=== PATIENT | male | born 1950 | race Caucasian/White ===

== ENCOUNTER 2017-04-09 15:33 | Observation (INO) | payer OTHER ==
[2017-04-09 15:41] VITALS: BMI 30.7
--- NOTE | 2017-04-09 16:13 | PDOC ---
History of Present Illness - History of Present Illness Initial Comments: 04/09/17 16:27 The patient is a 67 year old male, with a significant past medical history of hypertension (taking metoprolol), cardiac disease (taking amiodarone), HIV and WPW, who presents to the emergency department with fatigue and chest tightness x2 day with new onset of headache and hand numbness today. The patient states he has been sleeping excessively which is unlike him. He reports a chest tightness which radiates to his left shoulder and inferior to his left axilla. He also reports numbness to his fingertips, worse on the right than the left. He states his headache is localized to the right side and constant, but mild. He also states he feels lightheaded at this time. He reports having an echocardiogram over 5 years ago which was negative. He denies shortness of breath and dizziness. He denies fever, chills, nausea, vomit, diarrhea and constipation. He denies dysuria, frequency, urgency and hematuria. Allergies: NKDA PCP - Dr. Mae <Sherie Rondon - Last Filed: 04/09/17 16:27> <Carmelina Cruz - Last Filed: 04/09/17 18:22> - General Chief Complaint: Chest Pain Stated Complaint: CHEST PAIN, LT SIDE NUMBNESS Time Seen by Provider: 04/09/17 16:10 Past History <Sherie Rondon - Last Filed: 04/09/17 16:27> - Past Medical History Anemia: No Asthma: No Cancer: No Cardiac Disorders: Yes (Parkinson-White Syndrome) CVA: No COPD: No CHF: No Dementia: No Diabetes: No GI Disorders: No Disorders: No HTN: No Hypercholesterolemia: Yes HIV: Yes (on meds) Liver Disease: No Seizures: No Thyroid Disease: No - Surgical History Abdominal Surgery: No Appendectomy: No Cardiac Surgery: No Cholecystectomy: No Lung Surgery: No Neurologic Surgery: No Orthopedic Surgery: Yes (lef rotator cuff repari 2013) - Immunization History Immunization Up to Date: No - Psycho/Social/Smoking Cessation Hx Anxiety: No Suicidal Ideation: No Smoking Status: No Smoking History: Never smoked Have you smoked in the past 12 months: No Number of Cigarettes Smoked Daily: 0 Cigars Per Day: 0 Hx Alcohol Use: No Drug/Substance Use Hx: No Substance Use Type: None Hx Substance Use Treatment: No <Carmelina Cruz - Last Filed: 04/09/17 18:22> - Past Medical History Allergies/Adverse Reactions: Allergies Allergy/AdvReac Type Severity Reaction Status Date / Time No Known Allergies Allergy Verified 04/09/17 15:41 Home Medications: Ambulatory Orders Oxycodone HCl/Acetaminophen [Percocet 5-325 mg Tablet] 1 tab PO Q6H PRN #28 tablet MDD 4 12/23/16 Aspirin [Ecotrin] 81 mg PO DAILY #30 tablet. 02/10/17 Docusate Sodium 100 mg PO DAILY #30 capsule 02/10/17 Efavirenz/Emtricitab/Tenofovir [Atripla Tablet -] 1 tab PO DAILY #30 tab Fenofibrate Nanocrystallized [Fenofibrate] 145 mg PO DAILY #30 tablet 02/10/17 Mv-Mn/Fe Picolin/FA/Marek/D3/Aa [[place] Immune Support Tablet] 4 each PO BID #240 tablet 02/10/17 Vit D3/Folic Acid/B2/B6/B12 [Folgard Tablet] 1 each PO DAILY #30 tablet Amiodarone HCl 100 mg PO DAILY 04/09/17 Metoprolol Succinate [Toprol Xl] 50 mg PO DAILY 04/09/17 Review of Systems - Review of Systems Able to Perform ROS?: Yes Comments:: 04/09/17 16:27 GENERAL/CONSTITUTIONAL: (+) fatigue. No fever or chills. No weakness. HEAD, EYES, EARS, NOSE AND THROAT: No change in vision. No ear pain or discharge. No sore throat. CARDIOVASCULAR:(+)chest tightness. No shortness of breath. RESPIRATORY: No cough, wheezing, or hemoptysis. GASTROINTESTINAL: No nausea, vomiting, diarrhea or constipation. GENITOURINARY: No dysuria, frequency, or change in urination. MUSCULOSKELETAL: (+) left shoulder pain with numbness to hands bilaterally. No joint or muscle swelling or pain. No neck or back pain. SKIN: No rash NEUROLOGIC: (+) headache, No vertigo, loss of consciousness, or change in strength/sensation. ENDOCRINE: No increased thirst. No abnormal weight change. HEMATOLOGIC/LYMPHATIC: No anemia, easy bleeding, or history of blood clots. ALLERGIC/IMMUNOLOGIC: No hives or skin allergy. <Sherie Rondon - Last Filed: 04/09/17 16:27> *Physical Exam - Vital Signs Last Vital Signs Temp Pulse Resp BP Pulse Ox 98.0 F 83 20 137/96 98 04/09/17 15:36 04/09/17 15:36 04/09/17 15:36 04/09/17 15:36 04/09/17 15:36 <Sherie Rondon - Last Filed: 04/09/17 16:27> - Vital Signs Last Vital Signs Temp Pulse Resp BP Pulse Ox 98.0 F 83 20 137/96 98 04/09/17 15:36 04/09/17 15:36 04/09/17 15:36 04/09/17 15:36 04/09/17 15:36 <Carmelina Cruz - Last Filed: 04/09/17 18:22> Heart Score/ECG Review - History History: Moderately suspicious - Electrocardiogram EKG: Normal - Age Age: >/= 65 - Risk Factors Risk Factors Heart Score: Yes Hx Hypercholesterolemia Based on the list above the patient has:: 1-2 risk factors - Troponin Troponin: </= normal limit - Score Heart Score - Total: 4 - ECG Impressions Comment:: EKG read 15:40- Sinus rhythm 74 bpm, no acute ST/T changes. Occasional PAC. <Carmelina Cruz - Last Filed: 04/09/17 18:22> ED Treatment Course - LABORATORY CBC & Chemistry Diagram: 04/09/17 16:21 04/09/17 16:21 <Carmelina Cruz - Last Filed: 04/09/17 18:22> Medical Decision Making - Medical Decision Making Pt with no prior history of ACS (only WPW), but has multiple family members with strokes. The history is concerning for ACS- recent dec exercise tolerance, extreme fatigue, and now with L chest pain- substernal and axillary radiating to the neck and both arms. Currently pain free. Labs, EKG, CXR, and admit for workup with consultation with Dr. Mae. <Carmelina Cruz - Last Filed: 04/09/17 18:22> *DC/Admit/Observation/Transfer - Attestations Scribe Attestion: 04/09/17 16:30 Documentation prepared by Shreie Rondon, acting as medical advisor for Carmelina Cruz MD, <Sherie Rondon - Last Filed: 04/09/17 16:27> - Discharge Dispostion Admit: Yes <Carmelina Cruz - Last Filed: 04/09/17 18:22> Diagnosis at time of Disposition: Chest pain Qualifiers: Chest pain type: unspecified Qualified Code(s): R07.9 - Chest pain, unspecified - Discharge Dispostion Condition at time of disposition: Stable
[2017-04-09 16:40] LABS: BASOPHIL 0.4 % (0-2.0); MCH 30.5 pg (25.7-33.7); MCHC 33.8 g/dl (32.0-35.9); MEAN CELL VOLUME 90.3 fl (80-96); MEAN PLT VOLUME 8.3 fl (7.5-11.1); NEUTROPHILS 53.7 % (42.8-82.8); PLATELET COUNT 243 K/MM3 (134-434); RDW 12.9 % (11.9-15.9); WHITE BLOOD COUNT 4.9 K/mm3 (4.0-10.0)
[2017-04-09 16:58] LABS: INR 1.05 (0.82-1.09); PROTHROMBIN TIME (PATIENT) 11.6 SEC (9.98-11.88)
[2017-04-09 17:07] LABS: ALBUMIN 3.7 g/dl (3.4-5.0); ANION GAP 10 (8-16); BILIRUBIN,TOTAL 0.2 mg/dL (0.2-1.0); CALCIUM 8.8 mg/dL (8.5-10.1); CO2 26 mmol/L (21-32); COCKROFT - GAULT 85.4; CREATININE 1.2 mg/dL (0.7-1.3); GLUCOSE,RANDOM 156 mg/dL (74-106); SGOT/AST 18 U/L (15-37); SGPT/ALT 37 U/L (12-78); TOT PROT 7.2 g/dl (6.4-8.2)
[2017-04-09 17:10] LABS: ALK PHOS 64 U/L (45-117); TROPONIN I < 0.02 ng/ml (0.00-0.05)
[2017-04-09] MEDS ORDERED: ACETAMINOPHEN 325 MG TABLET (FP) PO ONE (17:22)
[2017-04-09] MEDS ORDERED: ACETAMINOPHEN 325 MG TABLET (FP) ONE (17:29)
[2017-04-09] MEDS ORDERED: ACETAMINOPHEN 325 MG TABLET (FP) PO PRN (17:47)
--- NOTE | 2017-04-09 17:47 | HP ---
CHIEF COMPLAINT: chest pain PCP: Dr. Mae HISTORY OF PRESENT ILLNESS: The patient is a 67 year old male, with a significant past medical history of hypertension (taking metoprolol), cardiac disease (taking amiodarone), HIV and WPW, who presents to the emergency department with fatigue and chest tightness x2 day with new onset of headache and hand numbness today. The patient states he has been sleeping excessively which is unlike him. He reports a chest tightness which radiates to his left shoulder and inferior to his left axilla. He also reports numbness to his fingertips, worse on the right than the left. He states his headache is localized to the right side and constant, but mild. He also states he feels lightheaded at this time. He reports having an echocardiogram over 5 years ago which was negative. He denies shortness of breath and dizziness. He denies fever, chills, nausea, vomit, diarrhea and constipation. He denies dysuria, frequency, urgency and hematuria. ER course was notable for: (1) chest pain with first trop neg (2) (3) Recent Travel: denies Family History: Allergies No Known Allergies Allergy (Verified 04/09/17 15:41) HOME MEDICATIONS: Home Medications Medication Instructions Recorded Oxycodone HCl/Acetaminophen 1 tab PO Q6H PRN #28 tablet MDD 4 12/23/16 [Percocet 5-325 mg Tablet] Aspirin [Ecotrin] 81 mg PO DAILY #30 tablet. 02/10/17 Docusate Sodium 100 mg PO DAILY #30 capsule 02/10/17 Efavirenz/Emtricitab/Tenofovir 1 tab PO DAILY #30 tab 02/10/17 [Atripla Tablet -] Fenofibrate Nanocrystallized 145 mg PO DAILY #30 tablet 02/10/17 [Fenofibrate] Mv-Mn/Fe Picolin/FA/Marek/D3/Aa 4 each PO BID #240 tablet 02/10/17 [K-[place] Immune Support Tablet] Vit D3/Folic Acid/B2/B6/B12 1 each PO DAILY #30 tablet 02/10/17 [Folgard Tablet] Amiodarone HCl 100 mg PO DAILY 04/09/17 Metoprolol Succinate [Toprol Xl] 50 mg PO DAILY 04/09/17 REVIEW OF SYSTEMS CONSTITUTIONAL: Absent: fever, chills, diaphoresis, generalized weakness, malaise, loss of appetite, weight change HEENT: Absent: rhinorrhea, nasal congestion, throat pain, throat swelling, difficulty swallowing, mouth swelling, ear pain, eye pain, visual changes CARDIOVASCULAR: Absent: (+)chest pain, syncope, palpitations, irregular heart rate, lightheadedness, peripheral edema RESPIRATORY: Absent: cough, shortness of breath, dyspnea with exertion, orthopnea, wheezing, stridor, hemoptysis GASTROINTESTINAL: Absent: abdominal pain, abdominal distension, nausea, vomiting, diarrhea, constipation, melena, hematochezia GENITOURINARY: Absent: dysuria, frequency, urgency, hesitancy, hematuria, flank pain, genital pain MUSCULOSKELETAL: Absent: myalgia, arthralgia, joint swelling, back pain, neck pain SKIN: Absent: rash, itching, pallor HEMATOLOGIC/IMMUNOLOGIC: Absent: easy bleeding, easy bruising, lymphadenopathy, frequent infections ENDOCRINE: Absent: unexplained weight gain, unexplained weight loss, heat intolerance, cold intolerance NEUROLOGIC: Absent: headache, focal weakness or paresthesias, dizziness, unsteady gait, seizure, mental status changes, bladder or bowel incontinence PSYCHIATRIC: Absent: anxiety, depression, suicidal or homicidal ideation, hallucinations. PHYSICAL EXAMINATION Vital Signs - 24 hr 04/09/17 15:36 Temperature 98.0 F Pulse Rate 83 Respiratory 20 Rate Blood Pressure 137/96 O2 Sat by Pulse 98 Oximetry (%) GENERAL: Awake, alert, and fully oriented, in no acute distress. HEAD: Normal with no signs of trauma. EYES: Pupils equal, round and reactive to light, extraocular movements intact, sclera anicteric, conjunctiva clear. No lid lag. EARS, NOSE, THROAT: Ears normal, nares patent, oropharynx clear without exudates. Moist mucous membranes. NECK: Normal range of motion, supple without lymphadenopathy, JVD, or masses. LUNGS: Breath sounds equal, clear to auscultation bilaterally. No wheezes, and no crackles. No accessory muscle use. HEART: Regular rate and rhythm, normal S1 and S2 without murmur, rub or gallop. ABDOMEN: Soft, nontender, not distended, normoactive bowel sounds, no guarding, no rebound, no masses. No hepatomegaly or splenomegaly. MUSCULOSKELETAL: Normal range of motion at all joints. No bony deformities or tenderness. No CVA tenderness. UPPER EXTREMITIES: 2+ pulses, warm, well-perfused. No cyanosis. No clubbing. No peripheral edema. LOWER EXTREMITIES: 2+ pulses, warm, well-perfused. No calf tenderness. No peripheral edema. NEUROLOGICAL: Cranial nerves II-XII intact. Normal speech. Normal gait. PSYCHIATRIC: Cooperative. Good eye contact. Appropriate mood and affect. SKIN: Warm, dry, normal turgor, no rashes or lesions noted, normal capillary refill. Laboratory Results - last 24 hr 04/09/17 04/09/17 04/09/17 16:21 16:21 16:21 WBC 4.9 RBC 4.54 Hgb 13.8 Hct 40.9 MCV 90.3 MCHC 33.8 RDW 12.9 Plt Count 243 MPV 8.3 Neutrophils % 53.7 Lymphocytes % 34.6 Monocytes % 7.3 Eosinophils % 4.0 Basophils % 0.4 INR 1.05 Sodium 142 Potassium 4.2 Chloride 106 Carbon Dioxide 26 Anion Gap 10 BUN 17 Creatinine 1.2 Creat Clearance w eGFR > 60 Random Glucose 156 H D Calcium 8.8 Total Bilirubin 0.2 D AST 18 D ALT 37 Alkaline Phosphatase 64 Creatine Kinase 83 Troponin I < 0.02 B-Natriuretic Peptide 72.83 Total Protein 7.2 Albumin 3.7 ASSESSMENT/PLAN: This 67 yr old male with c/o chest pain r/o mi with cardiac enzymes 1. chest pain with hx of WPW -admit observation tele -trop series. -received asa 325. -consult cardiology Tu placed in ER -continue metoprolol and antiarrythmic 2. HIV status -continue HARRT meds 3. HTN -cont home meds. 4. admission observation tele. Visit type - Emergency Visit Emergency Visit: Yes ED Registration Date: 04/09/17 Care time: The patient presented to the Emergency Department on the above date and was hospitalized for further evaluation of their emergent condition. - New Patient This patient is new to me today: Yes Date on this admission: 04/09/17 - Critical Care Critical Care patient: No
[2017-04-09] MEDS ORDERED: ASPIRIN 81 MG CHEWABLE TABLETS PO ONE (17:57)
[2017-04-09] MEDS ORDERED: ASPIRIN 325 MG TABLET ONE (18:15)
[2017-04-09 19:14] LABS: URINE APPEARANCE CLEAR; URINE BILIRUBIN NEGATIVE (NEGATIVE); URINE BLOOD NEGATIVE (NEGATIVE); URINE COLOR LTYELLOW; URINE GLUCOSE (UA) 3+ (NEGATIVE); URINE KETONE NEGATIVE (NEGATIVE); URINE LEUK ESTERASE NEGATIVE (NEGATIVE); URINE NITRITE NEGATIVE (NEGATIVE); URINE PROTEIN NEGATIVE (NEGATIVE); URINE UROBILINOGEN NEGATIVE E.U./dl (0.2-1.0)
[2017-04-09] MEDS ORDERED: [UNRECOGNIZED DRUG - OTHER] PO SCH (22:00)
[2017-04-09] MEDS ORDERED: CAL PO SCH (22:00)
[2017-04-09] MEDS ORDERED: D3 PO SCH (22:00)
[2017-04-09] MEDS ORDERED: MV MN PO SCH (22:00)
[2017-04-10 06:35] LABS: BASOPHIL 1.5 % (0-2.0); MCH 31.2 pg (25.7-33.7); MCHC 34.3 g/dl (32.0-35.9); MEAN CELL VOLUME 90.8 fl (80-96); MEAN PLT VOLUME 8.3 fl (7.5-11.1); NEUTROPHILS 42.3 % (42.8-82.8); PLATELET COUNT 233 K/MM3 (134-434); WHITE BLOOD COUNT 5.1 K/mm3 (4.0-10.0)
[2017-04-10 06:46] LABS: INR 1.13 (0.82-1.09); PROTHROMBIN TIME (PATIENT) 12.5 SEC (9.98-11.88)
[2017-04-10 06:55] LABS: ALBUMIN 3.4 g/dl (3.4-5.0); ANION GAP 10 (8-16); BILIRUBIN,TOTAL 0.4 mg/dL (0.2-1.0); CALCIUM 8.5 mg/dL (8.5-10.1); CO2 24 mmol/L (21-32); COCKROFT - GAULT 113.9; CREATININE 0.9 mg/dL (0.7-1.3); GLUCOSE,RANDOM 115 mg/dL (74-106); MAGNESIUM 2.1 mg/dL (1.8-2.4); PHOSPHOROUS 2.9 mg/dL (2.5-4.9); SGOT/AST 18 U/L (15-37); SGPT/ALT 33 U/L (12-78); TOT PROT 6.6 g/dl (6.4-8.2)
[2017-04-10 06:57] LABS: ALK PHOS 57 U/L (45-117); TROPONIN I < 0.02 ng/ml (0.00-0.05)
[2017-04-10] MEDS ORDERED: ACETAMINOPHEN 325 MG TABLET (FP) ONE (08:29)
[2017-04-10] MEDS ORDERED: PATIENT'S OWN MEDICATION (NON-FORMULARY) (Efavirenz/Emtricitab/Tenofovir 1 TAB) PO SCH (10:00)
[2017-04-10] MEDS ORDERED: PATIENT'S OWN MEDICATION (NON-FORMULARY) (Vit D3/Folic Acid/B2/B6/B12 [Folgard Tablet] 1 E PO SCH (10:00)
[2017-04-10] MEDS: DOCUSATE SODIUM 100 MG CAPSULE (FP) PO SCH (10:37)
[2017-04-10] MEDS: AMIODARONE HCL 200 MG TABLET (FP) PO SCH (10:37)
[2017-04-10] MEDS: METOPROLOL SUCCINATE 50 MG TAB.SR.24H (FP) PO SCH (10:38)
[2017-04-10] MEDS: FENOFIBRIC ACID 135 MG CAP PO SCH (10:38)
[2017-04-10] MEDS: ASPIRIN COATED 81 MG TABLET.EC PO SCH (10:38)
--- NOTE | 2017-04-10 11:41 | EKG ---
Test Reason : Blood Pressure : / mmHG Vent. Rate : 067 BPM Atrial Rate : 067 BPM P-R Int : 154 ms QRS Dur : 084 ms QT Int : 416 ms P-R-T Axes : 051 -02 055 degrees QTc Int : 439 ms NORMAL SINUS RHYTHM NORMAL ECG WHEN COMPARED WITH ECG OF 09-APR-2017 15:39, PREMATURE SUPRAVENTRICULAR COMPLEXES ARE NO LONGER PRESENT Confirmed by SHYANNE JAQUEZ, HERNÁN ([id number]) on 04/10/2017 11:41:39 AM Referred By: JESSICA LIZAMA Confirmed By:HERNÁN KIMBLE MD
--- NOTE | 2017-04-10 11:45 | EKG ---
Test Reason : Blood Pressure : / mmHG Vent. Rate : 074 BPM Atrial Rate : 074 BPM P-R Int : 144 ms QRS Dur : 078 ms QT Int : 396 ms P-R-T Axes : 056 008 059 degrees QTc Int : 439 ms SINUS RHYTHM WITH PREMATURE SUPRAVENTRICULAR COMPLEXES OTHERWISE NORMAL ECG WHEN COMPARED WITH ECG OF 10-JAN-2017 10:30, PREMATURE SUPRAVENTRICULAR COMPLEXES ARE NOW PRESENT Confirmed by SHYANNE JAQUEZ, HERNÁN ([id number]) on 04/10/2017 11:44:35 AM Referred By: Confirmed By:HERNÁN KIMBLE MD
--- NOTE | 2017-04-10 15:00 | PN ---
Progress Note (short form) - Note Progress Note: ID consult dictated imp/reccd 67 year old man with stable HIV disease-cd4 620, viral load suppressed, WPW syndrome- followed by Dr Madrid admitted with lethargy and c/o left chest/arm pain- admitted for possible ACS he also notes he has been very fatigued this week and has a chronic headache maily right temporal no fevers no rash no bites has chronic pain and is followed Dr Ruiz- )(pain management) suggest continuing Atripla cardiology evaluation agree with head ct
--- NOTE | 2017-04-10 16:39 | PN ---
Physical Exam: SUBJECTIVE: Patient seen and examined at bedside. Feels very tired. Feels right sided frontal head pressure. Denies chest pain, palpitations, SOB. Denies further episodes of dizziness. Denies fever, sweats, chills. Denies n/v/d/c. Denies upper respiratory symptoms, nasal congestion. OBJECTIVE: Vital Signs Period Temp Pulse Resp BP Sys/Banuelos Pulse Ox Last 24 Hr 97.6 F-97.7 F 67-82 18-18 111-126/65-82 95-100 GENERAL: The patient is awake, alert, and fully oriented, in no acute distress. HEAD: Normal with no signs of trauma. No tenderness over frontal and maxillary sinuses. EYES: PERRL, extraocular movements intact, sclera anicteric, conjunctiva clear. No ptosis. ENT: Ears normal, nares patent, oropharynx clear without exudates, moist mucous membranes. NECK: Trachea midline, full range of motion, supple. Shotty, mildly tender subtonsillar cervical nodes. LUNGS: Breath sounds equal, clear to auscultation bilaterally, no wheezes, no crackles, no accessory muscle use. HEART: Regular rate and rhythm, S1, S2 without murmur, rub or gallop. ABDOMEN: Soft, nontender, nondistended, normoactive bowel sounds, no guarding, no rebound, no hepatosplenomegaly, no masses. EXTREMITIES: 2+ pulses, warm, well-perfused, no edema. NEUROLOGICAL: Cranial nerves II through XII grossly intact. Normal speech, gait not observed. Laboratory Results - last 24 hr 04/09/17 04/10/17 04/10/17 19:00 00:05 06:15 WBC 5.1 RBC 4.36 Hgb 13.6 Hct 39.6 MCV 90.8 MCHC 34.3 RDW 13.0 Plt Count 233 MPV 8.3 Neutrophils % 42.3 L D Lymphocytes % 42.8 H D Monocytes % 8.4 Eosinophils % 5.0 H Basophils % 1.5 D INR Sodium Potassium Chloride Carbon Dioxide Anion Gap BUN Creatinine Creat Clearance w eGFR Random Glucose Calcium Phosphorus Magnesium Total Bilirubin AST ALT Alkaline Phosphatase Troponin I < 0.02 C-Reactive Protein Total Protein Albumin Urine Color Ltyellow Urine Appearance Clear Urine pH 6.0 Ur Specific [place] 1.015 Urine Protein Negative Urine Glucose (UA) 3+ H Urine Ketones Negative Urine Blood Negative Urine Nitrite Negative Urine Bilirubin Negative Urine Urobilinogen Negative Ur Leukocyte Esterase Negative 04/10/17 04/10/17 04/10/17 06:15 06:15 14:30 WBC RBC Hgb Hct MCV MCHC RDW Plt Count MPV Neutrophils % Lymphocytes % Monocytes % Eosinophils % Basophils % INR 1.13 Sodium 142 Potassium 3.9 Chloride 108 H Carbon Dioxide 24 Anion Gap 10 BUN 17 Creatinine 0.9 D Creat Clearance w eGFR > 60 Random Glucose 115 H D Calcium 8.5 Phosphorus 2.9 Magnesium 2.1 Total Bilirubin 0.4 D AST 18 ALT 33 Alkaline Phosphatase 57 Troponin I < 0.02 C-Reactive Protein < 0.3 Total Protein 6.6 Albumin 3.4 Urine Color Urine Appearance Urine pH Ur Specific [place] Urine Protein Urine Glucose (UA) Urine Ketones Urine Blood Urine Nitrite Urine Bilirubin Urine Urobilinogen Ur Leukocyte Esterase Active Medications Generic Name Dose Route Start Last Admin Trade Name Freq PRN Reason Stop Dose Admin Acetaminophen 650 mg 04/09/17 17:47 04/10/17 08:37 Tylenol - PO 650 mg Q4H PRN Administration FEVER OR PAIN Amiodarone HCl 100 mg 04/10/17 10:00 04/10/17 10:37 Cordarone - PO 100 mg DAILY JOSE Administration Aspirin 81 mg 04/10/17 10:00 04/10/17 10:38 Ecotrin - PO 81 mg DAILY JOSE Administration Docusate Sodium 100 mg 04/10/17 10:00 04/10/17 10:37 Colace - PO 100 mg DAILY JOSE Administration Fenofibric Acid 135 mg 04/10/17 10:00 04/10/17 10:38 Trilipix - PO 135 mg DAILY JOSE Administration Metoprolol Succinate 50 mg 04/10/17 10:00 04/10/17 10:38 Toprol Xl - PO 50 mg DAILY JOSE Administration Non-Formulary Medication 1 tab 04/10/17 10:00 Efavirenz/Emtricitab/Tenofovir PO DAILY JOSE Non-Formulary Medication 4 each 04/09/17 22:00 Mv-Mn/Fe Picolin/Fa/Marek/D3/Aa [K-[place] Immune Support Tablet] PO BID [facility] Non-Formulary Medication 1 each 04/10/17 10:00 Vit D3/Folic Acid/B2/B6/B12 [Folgard Tablet] PO DAILY JOSE ASSESSMENT/PLAN 67 year-old male with a PMH of HTN, CAD, WPW syndrome, and HIV, admitted for fatigue, chest discomfort, and headache. Chest pain --r/o ACS: troponins neg x 3; 04/10 echo: normal LV, normal RV; mild MR, trace to mild TR, mild pHTN; mild AI; CXR unremarkable --cardiology consult pending CAD WPW syndrome --continue Toprol XL, amiodarone, fenofibric acid HIV --continue HAART meds --ID following Headache --04/10 CT head: no acute pathology --04/10 CT sinuses: dictation pending Fatigue --patient is not anemic --esr, crp, TSH, HgbA1C, Lyme pending F/E/N Fluids: PO intake adequate Electrolytes: replete as indicated Nutrition: low sodium DVT prophylaxis: lovenox Physical therapy Dispo: continues to require inpatient care. Full Code. Visit type - Emergency Visit Emergency Visit: Yes ED Registration Date: 04/09/17 Care time: The patient presented to the Emergency Department on the above date and was hospitalized for further evaluation of their emergent condition. - New Patient This patient is new to me today: Yes Date on this admission: 04/10/17 - Critical Care Critical Care patient: No
--- NOTE | 2017-04-10 16:42 | CONS ---
DATE OF CONSULTATION: DATE OF DICTATION: 04/10/2017 REQUESTED BY: Hospitalist Service This is a 67-year-old man with a history of stable HIV, who diagnosed about 7 years ago and has been on Atripla with suppressed viral load since that time. He has a history of Jazdn-Rwesycfos-Mbxzu syndrome as well and is followed by Dr. Mae, who he sees twice a year. He has chronic neck and back pain. Last week he developed some lethargy and fatigue. He developed as well some left-sided chest pain and arm discomfort. He presented to the emergency room with these complaints and was admitted for evaluation for acute coronary syndrome. I am asked to see him for his HIV disease. As well, he notes he has a chronic headache, but he has no sore throat. He has no nausea, vomiting or diarrhea. He has no fevers or chills. He has no cough. He has no known drug allergies. His medications at home include Percocet, aspirin, Colace, Atripla, fenofibrate. He takes metoprolol and amiodarone as well as Folgard. His family history is notable for heart disease in his mother, and he has a brother who has had 2 strokes and a sister with breast cancer. Mother, as well, had strokes. His past medical history is notable for Hcpyn-Qhojdywyg-Yjoct syndrome. He has a history of hypertriglyceridemia, well-controlled HIV. He is out on disability. He had an accident, after which he has had back and neck pain, for which he states he is followed by a Dr. eLdezma, who gives him injections. He has had left rotator cuff repair in 2012 of his shoulder. SOCIAL HISTORY: He is . He is on disability. He drinks some alcohol socially. There is no history of any intravenous substance use. His review of systems is as per HPI. PHYSICAL EXAMINATION: General: He is awake and alert. Vital Signs: Temperature is 97.7. Pulse is 67. Blood pressure 111/65. Respiratory rate is 18. He weighs 220 pounds. HEENT: He is normocephalic. His eyes are anicteric. Neck: Supple. Lungs: Clear to auscultation. Heart: Regular rate and rhythm. Abdomen: Soft, nontender. Extremities: Without edema. White count is 5.1, hemoglobin 13.6, platelets 233, INR is 1.1. BUN 17, creatinine 0.9. LFTs are normal. Urinalysis notable for glucose but otherwise negative. His CD4 count is 620, and his viral load is undetectable as of January of this year. His chest x-ray is clear. In summary, this is a 67-year-old man, admitted with stable HIV disease, with fatigue and left-sided chest pain and arm pain, admitted for possible ACS. I would agree with Cardiology evaluation as well, given his complaints of persistent right frontal headache. Would agree with plan for imaging of his head and sinuses. Would continue him on Atripla at this time, as he has been quite stable on this medication. Further recommendations to follow based on his clinical course. JIM HOANG M.D. [id number]
--- NOTE | 2017-04-10 18:52 | CONSULT ---
Consult - text type - Consultation Consultation Note: Cardiology 67 year old male, with a significant past medical history of hypertension ( taking metoprolol), cardiac disease (taking amiodarone), HIV and WPW, who presents to the emergency department with fatigue and chest tightness x2 day with new onset of headache and hand numbness today. social NA FH CVA CAD allergy NA PMH HIV, HTN, WPW OP left shoulder PE: vitals stable normal cardio-pulmonary exam abdomen soft no leg edema Impression: atypical chest pain no evidence of IN Rule out CAD Rec: Nuclear stress test
[2017-04-11 06:56] LABS: BASOPHIL 1.1 % (0-2.0); EOSINOPHIL 3.5 % (0-4.5); MCH 31.3 pg (25.7-33.7); MCHC 34.7 g/dl (32.0-35.9); MEAN CELL VOLUME 90.2 fl (80-96); MEAN PLT VOLUME 8.8 fl (7.5-11.1); NEUTROPHILS 48.4 % (42.8-82.8); PLATELET COUNT 256 K/MM3 (134-434); RDW 13.2 % (11.9-15.9); WHITE BLOOD COUNT 6.5 K/mm3 (4.0-10.0)
[2017-04-11 07:21] LABS: ALBUMIN 3.9 g/dl (3.4-5.0); ANION GAP 11 (8-16); CALCIUM 8.8 mg/dL (8.5-10.1); CO2 24 mmol/L (21-32); COCKROFT - GAULT 102.5; GLUCOSE,RANDOM 106 mg/dL (74-106); MAGNESIUM 2.3 mg/dL (1.8-2.4); PHOSPHOROUS 3.5 mg/dL (2.5-4.9); SGOT/AST 22 U/L (15-37); SGPT/ALT 40 U/L (12-78)
[2017-04-11 07:26] LABS: ALK PHOS 65 U/L (45-117); BILIRUBIN,TOTAL 0.6 mg/dL (0.2-1.0); TOT PROT 7.5 g/dl (6.4-8.2)
[2017-04-11] MEDS ORDERED: ENOXAPARIN NA (PORCINE) 40 MG/0.4 ML DISP.SYRIN SQ SCH (10:00)
[2017-04-11] MEDS ORDERED: DIPYRIDAMOLE 50 MG/10 ML VIAL IVPB ONE (11:18)
[2017-04-11] MEDS ORDERED: PT OWN MED DRAWER 7, Y5N ONE (12:17)
[2017-04-11] MEDS: FENOFIBRIC ACID 135 MG CAP PO SCH (12:35)
[2017-04-11] MEDS: ASPIRIN COATED 81 MG TABLET.EC PO SCH (12:35)
[2017-04-11] MEDS: AMIODARONE HCL 200 MG TABLET (FP) PO SCH (12:35)
[2017-04-11] MEDS: DOCUSATE SODIUM 100 MG CAPSULE (FP) PO SCH (12:35)
[2017-04-11] MEDS: METOPROLOL SUCCINATE 50 MG TAB.SR.24H (FP) PO SCH (12:35)
[2017-04-11] MEDS ORDERED: DIPYRIDAMOLE STRESS TEST 50 MG in DEXTROSE 5%-WATER - 40 ML IVPB ONE (14:00)
--- NOTE | 2017-04-11 14:37 | PN ---
Progress Note (short form) - Note Progress Note: feeling much better headache has resolved no chestpain ct scans unrevealing Vital Signs Period Temp Pulse Resp BP Sys/Banuelos Pulse Ox Last 24 Hr 97.9 F-98.4 F 63-148 16-18 103-127/53-83 95-98 cor-rrr lungs clear abd soft,nt ext no edema CBC, BMP 04/11/17 05:35 04/11/17 05:35 a/p ACS- per cardiology asymptomatic hiv- can f/u in the [facility] when discharged continue atripla
[2017-04-11 14:43] VITALS: BP 120/86; PULSE 68; TEMP 97.8
--- NOTE | 2017-04-11 15:50 | DS ---
Physical Exam: SUBJECTIVE: Patient seen and examined oob to chair. Feeling better. Headache is resolved. Chest pain is resolved. OBJECTIVE: Vital Signs Period Temp Pulse Resp BP Sys/Banuelos Pulse Ox Last 24 Hr 97.8 F-98.4 F 63-148 16-16 103-127/53-86 95-97 PHYSICAL EXAM GENERAL: The patient is awake, alert, and fully oriented, in no acute distress. HEAD: Normal with no signs of trauma. EYES: PERRL, extraocular movements intact, sclera anicteric, conjunctiva clear. ENT: Ears normal, nares patent, oropharynx clear without exudates, moist mucous membranes. NECK: Trachea midline, full range of motion, supple. Shotty, mildly tender subtonsillar cervical nodes. LUNGS: Breath sounds equal, clear to auscultation bilaterally, no wheezes, no crackles, no accessory muscle use. HEART: Regular rate and rhythm, S1, S2 without murmur, rub or gallop. ABDOMEN: Soft, nontender, nondistended, normoactive bowel sounds, no guarding, no rebound, no hepatosplenomegaly, no masses. EXTREMITIES: 2+ pulses, warm, well-perfused, no edema. NEUROLOGICAL: Cranial nerves II through XII grossly intact. Normal speech, steady gait. Laboratory Results - last 24 hr 04/10/17 04/10/17 04/10/17 14:30 14:30 15:39 WBC RBC Hgb Hct MCV MCHC RDW Plt Count MPV Neutrophils % Lymphocytes % Monocytes % Eosinophils % Basophils % ESR 7 Sodium Potassium Chloride Carbon Dioxide Anion Gap BUN Creatinine Creat Clearance w eGFR Random Glucose Hemoglobin A1c % Calcium Phosphorus Magnesium Total Bilirubin AST ALT Alkaline Phosphatase C-Reactive Protein < 0.3 B-Natriuretic Peptide Total Protein Albumin TSH 0.47 D 04/10/17 04/11/17 04/11/17 15:39 05:35 05:35 WBC 6.5 RBC 4.84 Hgb 15.2 D Hct 43.7 MCV 90.2 MCHC 34.7 RDW 13.2 Plt Count 256 MPV 8.8 Neutrophils % 48.4 Lymphocytes % 39.6 Monocytes % 7.4 Eosinophils % 3.5 Basophils % 1.1 ESR Sodium 141 Potassium 4.3 Chloride 106 Carbon Dioxide 24 Anion Gap 11 BUN 18 Creatinine 1.0 Creat Clearance w eGFR > 60 Random Glucose 106 Hemoglobin A1c % 6.2 H D Calcium 8.8 Phosphorus 3.5 D Magnesium 2.3 Total Bilirubin 0.6 D AST 22 D ALT 40 D Alkaline Phosphatase 65 C-Reactive Protein B-Natriuretic Peptide 76.28 Total Protein 7.5 Albumin 3.9 TSH HOSPITAL COURSE: Date of Admission:04/09/17 Date of Discharge: 04/11/17 67 year-old male with a PMH of HTN, CAD, WPW syndrome, and HIV, admitted for fatigue, chest discomfort, and headache. Chest pain, improved --ACS ruled out: troponins neg x 3; ECG not suggestive of acute ischemic event; 04/10 echo: normal LV, normal RV; mild MR, trace to mild TR, mild pHTN; mild AI; CXR unremarkable; negative nuclear stress --seen and evaluated by cardiology CAD WPW syndrome --continued Toprol XL, amiodarone, fenofibric acid HIV --CD4 260, viral load suppressed --continue HAART meds --seen and evaluated by ID Headache, improved --04/10 CT head: no acute pathology --04/10 CT sinuses: no acute pathology Fatigue --patient is not anemic --esr and crp not elevated; TSH wnl; TSH wnl; HgbA1C 6.2; Lyme negative Patient advised to follow up with primary care team if symptoms persist for further evaluation. Minutes to complete discharge: 35 Discharge Summary Reason For Visit: CHEST PAIN Current Active Problems Chest pain (Acute) Condition: Improved - Instructions Diet, Activity, Other Instructions: You should follow up with your primary providers within one week of your discharge. Return to the emergency department for any new or worsening symptoms. Referrals: Hope Waldron MD [Staff Physician] - Richelle Castillo NP [Nurse Practitioner] - Franklyn Mae MD [Staff Physician] - Kt Toribio NP [Nurse Practitioner] - Disposition: HOME - Home Medications Comprehensive Discharge Medication List: Ambulatory Orders Oxycodone HCl/Acetaminophen [Percocet 5-325 mg Tablet] 1 tab PO Q6H PRN #28 tablet MDD 4 12/23/16 Aspirin [Ecotrin] 81 mg PO DAILY #30 tablet. 02/10/17 Docusate Sodium 100 mg PO DAILY #30 capsule 02/10/17 Efavirenz/Emtricitab/Tenofovir [Atripla Tablet -] 1 tab PO DAILY #30 tab Fenofibrate Nanocrystallized [Fenofibrate] 145 mg PO DAILY #30 tablet 02/10/17 Mv-Mn/Fe Picolin/FA/Marek/D3/Aa [[place] Immune Support Tablet] 4 each PO BID #240 tablet 02/10/17 Vit D3/Folic Acid/B2/B6/B12 [Folgard Tablet] 1 each PO DAILY #30 tablet Amiodarone HCl 100 mg PO DAILY 04/09/17 Metoprolol Succinate [Toprol Xl] 50 mg PO DAILY 04/09/17 This patient is new to me today: No Emergency Visit: Yes ED Registration Date: 04/09/17 Care time: The patient presented to the Emergency Department on the above date and was hospitalized for further evaluation of their emergent condition. Critical Care patient: No - Discharge Referral Referred to [facility] Med P.C.: No
== END 2017-04-11 16:50 | disposition home or self-care (01) ==
LOC: JER 15:33 → JERBED 17:48 → UNDOADMOB 17:58 → J4S 04-10 10:46
PROVIDERS: ADMIT Internal Medicine; ATTEND Nurse Practitioner Acute Care
PROC: 3E033GC Introduction of Other Therapeutic Substance into Peripheral Vein, Percutaneous Approach (ICD-10-PCS; principal; 2017-04-09)
PROC: 3E013GC Introduction of Other Therapeutic Substance into Subcutaneous Tissue, Percutaneous Approach (ICD-10-PCS; 2017-04-09)
DX: R07.89 Other chest pain (principal); Z21 Asymptomatic human immunodeficiency virus [HIV] infection status; I10 Essential (primary) hypertension; I45.6 Pre-excitation syndrome; E78.00 Pure hypercholesterolemia, unspecified; Z79.82 Long term (current) use of aspirin; R51 Headache; R53.83 Other fatigue
CPT/HCPCS: 36415; 70450-TC; 70486-TC; 71010-TC; 78452-TC; 80053; 81003; 82550; 83036; 83735; 83880; 84100; 84443; 84484; 85025; 85610; 85651; 86140; 86618; 93005; 93010; 93017; 93306-TC; 99285-25; A9502; G0378; J1245

== ENCOUNTER 2017-10-27 05:46 | Emergency (ER) | payer OTHER ==
[2017-10-27 06:09] VITALS: BP 128/88; PULSE 78; TEMP 97.3; BMI 30.9
--- NOTE | 2017-10-27 07:33 | PDOC ---
History of Present Illness - General Chief Complaint: Injury Stated Complaint: FALL Time Seen by Provider: 10/27/17 07:16 History Source: Patient Exam Limitations: No Limitations - History of Present Illness Initial Comments: This is a 67 YOM with h/o chronic back and shoulder pain (on pain management and gets PT), and left shoulder surgery, who presents s/p fall last night at 10: 30pm now with left shoulder, upper arm, and thumb pain up to 8/10, radiating to the left neck and worse with movement. He describes this fall as purely mechanical: he was walking on the street with his friend when a trap door on the sidewalk gave out underneath him and he lost his balance, falling onto the left shoulder and his outstretched left hand. He denies LOC or any preceding or subsequent dizziness, SOB, chest pain, palpitations, headache, confusion, vision changes, Past History - Past Medical History Allergies/Adverse Reactions: Allergies Allergy/AdvReac Type Severity Reaction Status Date / Time No Known Allergies Allergy Verified 04/09/17 15:41 Home Medications: Ambulatory Orders Amiodarone HCl 100 mg PO DAILY 04/09/17 Diclofenac Sodium [Voltaren] 100 gm TP TID PRN 04/27/17 Metaxalone [Skelaxin] 800 mg PO TID PRN 04/27/17 Ergocalciferol (Vitamin D2) [Vitamin D2] 50,000 unit PO WEEKLY 09/04/17 Gabapentin [Neurontin -] 300 mg PO Q8H 09/04/17 Aspirin [Ecotrin] 81 mg PO DAILY #30 tablet. 09/19/17 Docusate Sodium 100 mg PO DAILY #30 capsule 09/19/17 Efavirenz/Emtricitab/Tenofovir [Atripla Tablet -] 1 tab PO DAILY #30 tab Fenofibrate Nanocrystallized [Fenofibrate] 145 mg PO DAILY #30 tablet 09/19/17 Lactose-Reduced Food [Ensure Active Protein-Muscle] 237 ml PO TID #90 liquid Metoprolol Succinate [Toprol Xl] 50 mg PO DAILY #30 tab.er.24h 09/19/17 Mv-Min/Iron/Folic AC/Marek/D3/Aa [[place] Immune Support Tablet] 4 each PO BID #240 tablet 09/19/17 Vit D3/Folic Acid/B2/B6/B12 [Folgard Tablet] 1 each PO DAILY #30 tablet Anemia: No Asthma: No Cancer: No Cardiac Disorders: Yes (Parkinson-White Syndrome) CVA: No COPD: No CHF: No Dementia: No Diabetes: Yes (borderline) GI Disorders: No Disorders: No HTN: No Hypercholesterolemia: Yes Liver Disease: No Seizures: No Thyroid Disease: No - Surgical History Abdominal Surgery: No Appendectomy: No Cardiac Surgery: No Cholecystectomy: No Lung Surgery: No Neurologic Surgery: No Orthopedic Surgery: Yes (lef rotator cuff repair 2012) - Immunization History Immunization Up to Date: No - Suicide/Smoking/Psychosocial Hx Smoking Status: No Smoking History: Never smoked Have you smoked in the past 12 months: No Number of Cigarettes Smoked Daily: 0 Cigars Per Day: 0 Information on smoking cessation initiated: No Hx Alcohol Use: No Drug/Substance Use Hx: No Substance Use Type: None Hx Substance Use Treatment: No Review of Systems - Review of Systems Able to Perform ROS?: Yes Constitutional: No: Chills, Fever, Unexplained wgt Loss HEENTM: No: Nose Congestion, Throat Pain Respiratory: No: Cough, Shortness of Breath Cardiac (ROS): No: Chest Pain, Palpitations, Syncope ABD/GI: No: Constipated, Diarrhea, Nausea, Vomiting : No: Burning, Dysuria Musculoskeletal: No: Back Pain, Neck Pain Integumentary: Yes: Other (left upper arm pain, left shoulder pain, left wrist pain). No: Bruising, Rash Neurological: No: Headache, Numbness, Tingling, Weakness, Dizziness Endocrine: No: Unexplained Weight Gain, Unexplained Weight Loss *Physical Exam - Vital Signs Last Vital Signs Temp Pulse Resp BP Pulse Ox 97.3 F L 78 18 128/88 98 10/27/17 06:04 10/27/17 06:04 10/27/17 06:04 10/27/17 06:04 10/27/17 06:04 - Physical Exam General Appearance: Yes: Nourished, Appropriately Dressed, Other (well appearing and pleasant adult male in no distress who keeping left arm relatively still, answering questions appropriately). No: Apparent Distress HEENT: positive: EOMI, FRED, Normal Voice, Hearing Grossly Normal. negative: Scleral Icterus (R), Scleral Icterus (L), Nasal Congestion Neck: positive: Trachea midline, Supple. negative: Tender, Rigid Respiratory/Chest: positive: Lungs Clear, Normal Breath Sounds. negative: Chest Tender, Respiratory Distress, Crackles, Rhonchi, Stridor, Wheezing Cardiovascular: positive: Regular Rhythm, Regular Rate. negative: Murmur Gastrointestinal/Abdominal: positive: Normal Bowel Sounds, Soft, Protuberent. negative: Tender, Organomegaly, Pulsatile Mass, Guarding Musculoskeletal: positive: Normal Inspection. negative: Decreased Range of Motion, Vertebral Tenderness Extremity: positive: Normal Capillary Refill, Normal Inspection, Normal Range of Motion, Other (left 1st metacarpal base ttp, left snuffbox ttp, left lateral deltoid ttp, pain with ROM of left shoulder, but no overt e/o trauma or gross deformity, distally neurovascularly intact sensory and motor). negative: Tender , Cyanosis, Swelling Integumentary: positive: Normal Color, Dry, Warm. negative: Erythema, Rash, Bruising Neurologic: positive: grade setter II-XII NML intact, Fully Oriented, Alert, Normal Mood/ Affect, Normal Response, Motor Strength 5/5. negative: EOM Palsy, Facial Droop , Numbness, Sensory Deficit, Confused, Disoriented Medical Decision Making - Medical Decision Making 67 YOM who p/w shoulder, upper arm, and hand/wrist pain s/p fall last night. VS wnl, no gross deformity, but patient has limited ROM shoulder with lateral deltoid ttp. Also ttp base of left thumb (not snuffbox ttp) but neurovascularly intact. Ordered is 975 mg Tylenol, XR hand/wrist, elbow, shoulder. 10/27/17 10:13 XR studies negative. Patient to be splinted (thumb spica) and given sling for intermittent use (most likely tear). Splint check with good cap refill, neurovascularly intact. He is given ortho referral. Return precautions discussed and he will f/u with ortho Or he will return for repeat hand XR in 2 weeks if he cannot get an appointment with ortho. *DC/Admit/Observation/Transfer Diagnosis at time of Disposition: Hand pain, left, Pain of left deltoid, Fall from ground level Shoulder pain, left Qualifiers: Chronicity: acute Qualified Code(s): M25.512 - Pain in left shoulder - Discharge Dispostion Disposition: HOME Condition at time of disposition: Stable Admit: No - Referrals Referrals: Hope Waldron MD [Primary Care Provider] - Tera Parsons MD [Staff Physician] - - Patient Instructions Additional Instructions: You were seen in the ER for a fall and left arm and wrist pain. We did x-rays of the shoulder, elbow, wrist, and hand and there were no bone abnormalities. We splinted your hand and wrist because there may be a small fracture of a bone in your hand. Please keep the splint very dry (use a plastic bag with tape if you need to take a shower. Use the arm sling only sometimes for your comfort - do not use all the time because this could cause "frozen shoulder". Do light range of motion exercises with your shoulder. Please follow up with Orthopedics (we are putting referral info in this packet). You can return to the ER in two weeks for a repeat x-ray of the hand if you are not able to get to an appointment with Orthopedics. Return to the ER with any new or worsening symptoms. - Post Discharge Activity
[2017-10-27] MEDS ORDERED: ACETAMINOPHEN 500 MG TABLET (FP) PO ONE (07:50)
[2017-10-27] MEDS ORDERED: ACETAMINOPHEN 325 MG TABLET (FP) ONE (07:59)
--- NOTE | 2017-10-27 08:08 | PDOC ---
Attending Attestation - Resident Resident Name: Lina Cantu - ED Attending Attestation I have performed the following: I have examined & evaluated the patient, The case was reviewed & discussed with the resident, I agree w/resident's findings & plan, Exceptions are as noted - HPI HPI: 10/27/17 08:08 67-year-old male with past medical history of HIV, hyperlipidemia, prior left shoulder injury, [place] Parkinson's White presents to the emergency department for mechanical fall yesterday. Patient tripped and fell and landed on left side. Complains the left shoulder pain, left hand pain and elbow pain. Denies recent illnesses. Denies head injury. Denies numbness or weakness. - Physicial Exam PE: 10/27/17 08:10 GENERAL: Awake, alert, and fully oriented, in no acute distress. HEAD: No signs of trauma EYES: PERRLA, EOMI, sclera anicteric, conjunctiva clear ENT: Auricles normal inspection, hearing grossly normal, nares patent, oropharynx clear without exudates. NECK: Normal ROM, supple, no lymphadenopathy, JVD, or masses LUNGS: Breath sounds equal, clear to auscultation bilaterally. No wheezes, and no crackles HEART: Regular rate and rhythm, normal S1 and S2, no murmurs, rubs or gallops ABDOMEN: Soft, nontender, normoactive bowel sounds. No guarding, no rebound. No masses EXTREMITIES: LUE: 2+ radial pulse. Sensation and strength intact the median/radian/ulnar/ deltoid distribution. +TTP left snuffbox tenderness. No wrist tenderness. No elbow tenderness. Left shoulder with left anterior tenderness. Range of motion limited secondary to pain. NEUROLOGICAL: Cranial nerves II through XII grossly intact. Normal speech, normal gait SKIN: Warm, Dry, normal turgor, no rashes or lesions noted. - Medical Decision Making 10/27/17 08:12 Vital Signs Temp Pulse Resp BP Pulse Ox 97.3 F L 78 18 128/88 98 10/27/17 06:04 10/27/17 06:04 10/27/17 06:04 10/27/17 06:04 10/27/17 06:04 Patient will need to rule out for potential scaphoid fracture. Even if x-rays negative, we'll place a thumb spica. Patient's shoulder and elbow demonstrates no gross of normalities. We'll obtain radiographs rule out fractures. However, there is some suspicion the patient may potentially have injured his rotator cuff on the left upper extremity. Pain control, sling and reassess. 10/27/17 10:15 Radiographs reviewed. No acute findings. However, will splint and sling. Will have patient follow up with ortho, or if unable to, follow up here in 2 weeks for repeat scaphoid view.
== END 2017-10-27 11:24 | disposition home or self-care (01) ==
LOC: JER 05:46
DX: M79.642 Pain in left hand (principal); M25.512 Pain in left shoulder; W18.39XA Other fall on same level, initial encounter; Y93.01 Activity, walking, marching and hiking; Y92.480 Sidewalk as the place of occurrence of the external cause; Y99.8 Other external cause status; G89.4 Chronic pain syndrome; E78.00 Pure hypercholesterolemia, unspecified; R73.03 Prediabetes
CPT/HCPCS: 73030-TC-LT; 73070-TC-LT; 73110-TC-LT; 73130-TC-LT; 99281-25

== ENCOUNTER 2019-04-15 13:29 | Emergency (ER) | payer MEDICARE, OTHER | END 2019-04-15 14:48 | disposition home or self-care (01) | LOC: JERFT 13:29 ==

== ENCOUNTER 2019-07-31 10:56 | Observation (INO) | payer MEDICARE, OTHER ==
[2019-07-31 11:17] VITALS: BMI 29.9
[2019-07-31] MEDS ORDERED: ASPIRIN 81 MG CHEWABLE TABLETS PO ONE (11:58)
--- NOTE | 2019-07-31 12:49 | PDOC ---
Documentation entered by Gali Lockhart SCRIBE, acting as scribe for Dalia Sanders DO. Dalia Sanders, : This documentation has been prepared by the Chantelle cruz Adrianna, SCRIBE, under my direction and personally reviewed by me in its entirety. I confirm that the documentation accurately reflects all work, treatment, procedures, and medical decision making performed by me. History of Present Illness - General Chief Complaint: Chest Pain Stated Complaint: LIGHTHEADED Time Seen by Provider: 07/31/19 11:29 - History of Present Illness Initial Comments: The patient is a 69 year old male, with a significant PMH of HIV, Parkinson White Syndrome, pre-diabetes, BPH, bilateral caliculi, HLD, fatty liver, kidney stones, and chronic left shoulder pain, who presents to the ED for evaluation of feeling off for 2 days, and chest pain since earlier this morning. Patient notes that for the past 2 days, he hasnt felt like himself. He reports feeling lethargic and sluggish, spending most of his day in bed. Today, patient developed left sided chest pain that is most prominent underneath the pec and radiates towards his armpit. Patient endorses associated left-sided neck and shoulder pain (different from his chronic pain), which he describes as a tightness. He reports feeling diaphoretic, lightheaded, slightly SOB, and with a dry cough. He endorses some tingling in the bilateral fingertips, but this is present at his baseline. Denies fever, abdominal pain, nausea, vomit, diarrhea, constipation, dysuria, hematuria, runny nose, sore throat, sick contacts. Allergies: NKA, NKDA Surgical History: Left rotator cuff repair x2 Social History: Denies EtOH, tobacco, or illicit drug PCP: MELANIE Medina Public Relations Player: Dr. Hernandez Past History - Past Medical History Allergies/Adverse Reactions: Allergies Allergy/AdvReac Type Severity Reaction Status Date / Time No Known Allergies Allergy Verified 07/31/19 11:17 Home Medications: Ambulatory Orders Metaxalone [Skelaxin] 800 mg PO TID #90 tablet MDD 3 02/01/19 Nut.tx.gluc.intoler,Lac-Fr,Soy [Glucerna] 237 ml PO TID #90 liquid 02/04/19 Olopatadine HCl [Pataday] 1 drop OU BID #1 bottle 04/17/19 Potassium Citrate [Potassium Citrate ER] 15 meq PO BID 05/15/19 Testosterone [Androgel -] 1.62 pump TD DAILY 05/15/19 Amiodarone HCl 100 mg PO DAILY #30 tablet 05/27/19 Aspirin [Ecotrin] 81 mg PO DAILY #30 tablet. 05/27/19 Cholecalciferol (Vitamin D3) [D3-50] 50,000 unit PO WEEKLY #4 capsule 05/27/19 Docusate Sodium [Colace -] 100 mg PO DAILY #30 capsule 05/27/19 Efavirenz/Emtricitab/Tenofovir [Atripla Tablet -] 1 tab PO DAILY #30 tab Metformin HCl [Glucophage] 500 mg PO BID #60 tablet 05/27/19 Metoprolol Succinate [Toprol Xl] 50 mg PO DAILY #30 tab.er.24h 05/27/19 Ranitidine [Zantac -] 150 mg PO DAILY PRN #30 tablet 05/27/19 Tamsulosin HCl [Flomax -] 1 tab PO DAILY #30 capsule 05/27/19 Polo-3 Fatty Acids [Polo-3] 1 cap PO BID #60 capsule 06/13/19 Diclofenac Sodium [Voltaren] 100 gm TP TID PRN #3 tube 07/25/19 Gabapentin [Neurontin -] 300 mg PO Q8H #90 capsule 07/25/19 Vit D3/Folic Acid/B2/B6/B12 [Folgard Tablet] 1 each PO DAILY 07/31/19 Anemia: No Asthma: No Cancer: No Cardiac Disorders: Yes (wpw) CVA: No COPD: No CHF: No Dementia: No Diabetes: No GI Disorders: No Disorders: Yes (bilat calculi, bph) HTN: No Hypercholesterolemia: Yes Liver Disease: Yes (fatty liver) Seizures: No Thyroid Disease: No - Surgical History Abdominal Surgery: No Appendectomy: No Cardiac Surgery: No Cholecystectomy: No Lung Surgery: No Neurologic Surgery: No Orthopedic Surgery: Yes (left rotator cuff repair 2012 & 2018) - Immunization History Immunization Up to Date: No - Psycho Social/Smoking Cessation Hx Smoking Status: No Smoking History: Never smoked Have you smoked in the past 12 months: No Number of Cigarettes Smoked Daily: 0 Cigars Per Day: 0 Hx Alcohol Use: No Drug/Substance Use Hx: No Substance Use Type: Alcohol Hx Substance Use Treatment: No Cardiac Specific PMH - Complaint Specific PMHX Pacemaker: No Review of Systems - Review of Systems Comments:: GENERAL/CONSTITUTIONAL: +Feeling off. +Lethargic. +Sluggish. +Diaphoretic. No fever or chills. HEAD, EYES, EARS, NOSE AND THROAT: No change in vision. No ear pain or discharge. No sore throat. GASTROINTESTINAL: No nausea, vomiting, diarrhea or constipation. GENITOURINARY: No dysuria, frequency, or change in urination. CARDIOVASCULAR: +Left sided chest pain that radiates to armpit. +Slight SOB. RESPIRATORY: +Dry cough. No wheezing or hemoptysis. MUSCULOSKELETAL: +Left-sided neck pain. +Left shoulder pain. No joint or muscle swelling. No back pain. SKIN: No rash NEUROLOGIC: +Lightheaded. +Tingling of the bilateral fingertips (present at baseline). No headache, vertigo, loss of consciousness, or change in strength. ENDOCRINE: No increased thirst. No abnormal weight change. HEMATOLOGIC/LYMPHATIC: No anemia, easy bleeding, or history of blood clots. ALLERGIC/IMMUNOLOGIC: No hives or skin allergy. *Physical Exam - Vital Signs Last Vital Signs Temp Pulse Resp BP Pulse Ox 98 F 68 18 141/95 99 07/31/19 11:45 07/31/19 11:45 07/31/19 11:45 07/31/19 11:45 07/31/19 11:45 - Physical Exam Comments: Constitutional: Awake, alert, oriented. No acute distress. Head: Normocephalic. Atraumatic Eyes: PERRL. EOMI. Conjunctivae are not pale. ENT: Mucous membranes are moist and intact. Posterior pharynx without exudates or erythema. Uvula midline. Neck: Supple. Full ROM. No lymphadenopathy. Cardiovascular: Regular rate. Regular rhythm. S1, S2 regular. Distal pulses are 2+ and symmetric. Pulmonary/Chest: No evidence of respiratory distress. Clear to auscultation bilaterally No wheezing, rales or rhonchi. Abdominal: Soft and nondistended. There is no tenderness. No rebound, guarding or rigidity. No organomegaly. No palpable masses. Good bowel sounds. Back: No CVA tenderness. Musculoskeletal: No edema. No cyanosis. No clubbing. Full range of motion in all extremities. Nocalf tenderness. Radial/pedal pulses are intact and 2+ bilaterally Skin: Skin is warm and dry. No petechiae. No purpura. Neurological: Alert and oriented to person, place, and time. Cranial nerves II -XII are grossly intact. Normal speech. Strength is grossly symmetric. No sensory deficits. Psychiatric: Good eye contact. Normal interaction, affect and behavior. Heart Score/ECG Review - History History: Moderately suspicious - Electrocardiogram EKG: Normal - Age Age: >/= 65 - Risk Factors Risk Factors Heart Score: Yes Hx Diabetes Based on the list above the patient has:: 1-2 risk factors - Troponin Troponin: </= normal limit - Score Heart Score - Total: 4 - ECG Intrepretation Comment:: 07/31/19 12:43 sinus at 80, baseline artifact, pvc, nl axis, no acute st/t wave findings 07/31/19 12:44 repeat ekg: sinus at 76, pvc, nl axis, nl interval, no acute st/t wave findings ED Treatment Course - LABORATORY CBC & Chemistry Diagram: 07/31/19 13:15 07/31/19 13:15 - ADDITIONAL ORDERS Additional order review: Laboratory Results 07/31/19 07/31/19 07/31/19 13:15 13:15 13:15 PT with INR 11.30 INR 0.96 PTT (Actin FS) 28.1 Sodium 142 Potassium 4.1 Chloride 106 Carbon Dioxide 28 Anion Gap 7 L BUN 14.6 Creatinine 1.0 Est GFR (CKD-EPI)AfAm 89.23 Est GFR (CKD-EPI)NonAf 76.99 Random Glucose 132 H Calcium 9.1 Magnesium 2.2 Total Bilirubin 0.4 AST 21 ALT 61 Alkaline Phosphatase 69 Creatine Kinase 66 Troponin I < 0.02 B-Natriuretic Peptide 125.3 H Total Protein 6.9 Albumin 3.5 07/31/19 13:15 RBC 4.86 MCV 91.7 MCHC 34.6 RDW 13.2 MPV 8.3 Neutrophils % 48.1 Lymphocytes % 39.3 Monocytes % 8.1 Eosinophils % 3.5 Basophils % 1.0 - RADIOLOGY Radiology Studies Ordered: Category Date Time Status CHEST X-RAY PORTABLE* [RAD] Stat Radiology 09/25/19 11:57 Completed Radiograph Interpretation: EXAM#: TYPE/EXAM: RESULT: [id number] RAD/CHEST X-RAY PORTABLE* Chest: Shortness of breath A single AP view of the chest reveals clear lungs, prominent mediastinum and sharp angles. The bones and soft tissues are intact. Since 2018 there is a more prominent mediastinum. Correlation recommended. 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 Hernandez 1:40p cxr clear 2:21p trop neg labs reviewed pt will need tele obs for acs eval 3:07p case discussed with Dr. Tristan from [facility] who accepts pt under dr. darling Discharge - Discharge Information Problems reviewed: Yes Clinical Impression/Diagnosis: Chest pain Condition: Fair - Admission Yes - Follow up/Referral Referrals: Franklyn Mae MD [Staff Physician] - - Patient Discharge Instructions - Post Discharge Activity
[2019-07-31] MEDS ORDERED: ASPIRIN 81 MG CHEWABLE TABLETS ONE (12:54)
[2019-07-31 13:34] LABS: EOS % 3.5 % (0-4.5); HEMATOCRIT 44.6 % (35.4-49); HEMOGLOBIN 15.4 GM/dL (11.7-16.9); LYMPH % 39.3 % (8-40); MCH 31.7 pg (25.7-33.7); MCHC 34.6 g/dl (32.0-35.9); MEAN CELL VOLUME 91.7 fl (80-96); MEAN PLT VOLUME 8.3 fl (7.5-11.1); MONO % 8.1 % (3.8-10.2); NEUT % 48.1 % (42.8-82.8); PLATELET COUNT 189 K/MM3 (134-434); RBC 4.86 M/mm3 (4.00-5.60); RDW 13.2 % (11.9-15.9); WHITE BLOOD COUNT 5.2 K/mm3 (4.0-10.0)
[2019-07-31 13:45] LABS: INR 0.96 (0.83-1.09); PROTHROMBIN TIME (PATIENT) 11.3 SEC (9.7-13.0)
[2019-07-31 13:48] LABS: ACTIVATED PTT 28.1 SECONDS (25.2-36.5)
[2019-07-31 14:06] LABS: ALBUMIN 3.5 g/dl (3.4-5.0); BILIRUBIN,TOTAL 0.4 mg/dL (0.2-1); BLOOD UREA NITROGEN 14.6 mg/dL (7-18); CALCIUM 9.1 mg/dL (8.5-10.1); MAGNESIUM 2.2 mg/dL (1.8-2.4); N-TERMINAL BNP 125.3 pg/ml (5-125); POTASSIUM 4.1 mmol/L (3.5-5.1); TOT PROT 6.9 g/dl (6.4-8.2)
[2019-07-31] MEDS ORDERED: ACETAMINOPHEN 325 MG TABLET (FP) PO PRN (15:50)
--- NOTE | 2019-07-31 16:22 | HP ---
CHIEF COMPLAINT: Chest pain PCP: [facility] HISTORY OF PRESENT ILLNESS: Patient is a 69 y/o male with a history of HIV, WPW, prediabetes, BPH, calculi, HLD, and fatty liver who presents for left sided chest pain. Patient woke up this morning with a sharp pain and pressure in his chest on the left side. Patient notes that this lasted about a minute. he has not had any similar pain recently. Patient reports he also felt some tingling in his hand and he has left sided neck pain that radiates up. Patient felt light headed at the same time. Patient reports he follows with Dr Hernandez and at the [facility]. Patient denies nausea, vomiting, shortness of breath, or headache. ER course was notable for: (1) (2) (3) Recent Travel: denies PAST MEDICAL HISTORY: HIV, WPW, prediabetes, BPH, calculi, HLD, and fatty liver PAST SURGICAL HISTORY: Social History: Smoking: denies Alcohol: denies Drugs: denies Allergies No Known Allergies Allergy (Verified 07/31/19 11:17) HOME MEDICATIONS: Home Medications Medication Instructions Recorded Metaxalone [Skelaxin] 800 mg PO TID #90 tablet MDD 3 02/01/19 Nut.tx.gluc.intoler,Lac-Fr,Soy 237 ml PO TID #90 liquid 02/04/19 [Glucerna] Olopatadine HCl [Pataday] 1 drop OU BID #1 bottle 04/17/19 Potassium Citrate [Potassium 15 meq PO BID 05/15/19 Citrate ER] Testosterone [Androgel -] 1.62 pump TD DAILY 05/15/19 Amiodarone HCl 100 mg PO DAILY #30 tablet 05/27/19 Aspirin [Ecotrin] 81 mg PO DAILY #30 tablet. 05/27/19 Cholecalciferol (Vitamin D3) 50,000 unit PO WEEKLY #4 capsule 05/27/19 [D3-50] Docusate Sodium [Colace -] 100 mg PO DAILY #30 capsule 05/27/19 Efavirenz/Emtricitab/Tenofovir 1 tab PO DAILY #30 tab 05/27/19 [Atripla Tablet -] Metformin HCl [Glucophage] 500 mg PO BID #60 tablet 05/27/19 Metoprolol Succinate [Toprol Xl] 50 mg PO DAILY #30 tab.er.24h 05/27/19 Ranitidine [Zantac -] 150 mg PO DAILY PRN #30 tablet 05/27/19 Tamsulosin HCl [Flomax -] 1 tab PO DAILY #30 capsule 05/27/19 [place]-3 Fatty Acids [[place]-3] 1 cap PO BID #60 capsule 06/13/19 Diclofenac Sodium [Voltaren] 100 gm TP TID PRN #3 tube 07/25/19 Gabapentin [Neurontin -] 300 mg PO Q8H #90 capsule 07/25/19 Vit D3/Folic Acid/B2/B6/B12 1 each PO DAILY 07/31/19 [Folgard Tablet] REVIEW OF SYSTEMS CONSTITUTIONAL: Absent: fever, chills, diaphoresis, generalized weakness, malaise, loss of appetite, weight change HEENT: Absent: rhinorrhea, nasal congestion, throat pain, throat swelling, difficulty swallowing, mouth swelling, ear pain, eye pain, visual changes CARDIOVASCULAR: chest pain Absent: syncope, palpitations, irregular heart rate, lightheadedness, peripheral edema RESPIRATORY: Absent: cough, shortness of breath, dyspnea with exertion, orthopnea, wheezing, stridor, hemoptysis GASTROINTESTINAL: Absent: abdominal pain, abdominal distension, nausea, vomiting, diarrhea, constipation, melena, hematochezia GENITOURINARY: Absent: dysuria, frequency, urgency, hesitancy, hematuria, flank pain, genital pain MUSCULOSKELETAL: Absent: myalgia, arthralgia, joint swelling, back pain, neck pain SKIN: Absent: rash, itching, pallor HEMATOLOGIC/IMMUNOLOGIC: Absent: easy bleeding, easy bruising, lymphadenopathy, frequent infections ENDOCRINE: Absent: unexplained weight gain, unexplained weight loss, heat intolerance, cold intolerance NEUROLOGIC: Absent: headache, focal weakness or paresthesias, dizziness, unsteady gait, seizure, mental status changes, bladder or bowel incontinence PSYCHIATRIC: Absent: anxiety, depression, suicidal or homicidal ideation, hallucinations. PHYSICAL EXAMINATION Vital Signs - 24 hr 07/31/19 07/31/19 11:15 11:45 Temperature 98.2 F 98 F Pulse Rate 73 Pulse Rate [ 68 Left Apical] Respiratory 16 18 Rate Blood Pressure 119/67 Blood Pressure 141/95 [Left Arm] O2 Sat by Pulse 96 99 Oximetry (%) GENERAL: Awake, alert, and fully oriented, in no acute distress. obese HEAD: Normal with no signs of trauma. EYES: Pupils equal, round and reactive to light, extraocular movements intact, EARS, NOSE, THROAT: Moist mucous membranes. LUNGS: Breath sounds equal, clear to auscultation bilaterally. No wheezes, and no crackles. No accessory muscle use. HEART: Regular rate and rhythm, normal S1 and S2 without murmur, rub or gallop. ABDOMEN: Soft, nontender, not distended, normoactive bowel sounds, no guarding, MUSCULOSKELETAL: Normal range of motion at all joints. No bony deformities or tenderness. No CVA tenderness. LOWER EXTREMITIES: 2+ pulses, warm, well-perfused. No calf tenderness. No peripheral edema. SKIN: Warm, dry, normal turgor, no rashes or lesions noted, normal capillary refill. Laboratory Results - last 24 hr 07/31/19 07/31/19 07/31/19 13:15 13:15 13:15 WBC 5.2 RBC 4.86 Hgb 15.4 Hct 44.6 MCV 91.7 MCH 31.7 MCHC 34.6 RDW 13.2 Plt Count 189 MPV 8.3 Absolute Neuts (auto) 2.5 Neutrophils % 48.1 Lymphocytes % 39.3 Monocytes % 8.1 Eosinophils % 3.5 Basophils % 1.0 Nucleated RBC % 0 PT with INR 11.30 INR 0.96 PTT (Actin FS) 28.1 Sodium Potassium Chloride Carbon Dioxide Anion Gap BUN Creatinine Est GFR (CKD-EPI)AfAm Est GFR (CKD-EPI)NonAf Random Glucose Calcium Magnesium Total Bilirubin AST ALT Alkaline Phosphatase Creatine Kinase 66 Troponin I < 0.02 B-Natriuretic Peptide Total Protein Albumin 07/31/19 13:15 WBC RBC Hgb Hct MCV MCH MCHC RDW Plt Count MPV Absolute Neuts (auto) Neutrophils % Lymphocytes % Monocytes % Eosinophils % Basophils % Nucleated RBC % PT with INR INR PTT (Actin FS) Sodium 142 Potassium 4.1 Chloride 106 Carbon Dioxide 28 Anion Gap 7 L BUN 14.6 Creatinine 1.0 Est GFR (CKD-EPI)AfAm 89.23 Est GFR (CKD-EPI)NonAf 76.99 Random Glucose 132 H Calcium 9.1 Magnesium 2.2 Total Bilirubin 0.4 AST 21 ALT 61 Alkaline Phosphatase 69 Creatine Kinase Troponin I B-Natriuretic Peptide 125.3 H Total Protein 6.9 Albumin 3.5 ASSESSMENT/PLAN: Patient is a 69 y/o male with a history of HIV, WPW, prediabetes, BPH, calculi, HLD, and fatty liver who presents for left sided chest pain. #chest pain - r/o ACS, likely left neck strain - first trop negative, f/u second trop - ekg with twave inversion in V!, seen in previous EKG - echo in th morning - Spoke with Dr. Hernandez, patient had ECHO and Stress test in 2017 without any abnormalities, mild pulmonary HTN - continue home medications for neck pain, diclofenac, gabapentin #HIV - continue home medications #HTN - continue #WPW - continue amiodarone and metoprolol #prediabetes - BGM ACHS - SS FEN - low sodium and diabetic diet Dispo: monitor on tele Visit type - Emergency Visit Emergency Visit: Yes ED Registration Date: 07/31/19 Care time: The patient presented to the Emergency Department on the above date and was hospitalized for further evaluation of their emergent condition. - New Patient This patient is new to me today: Yes Date on this admission: 08/01/19 - Critical Care Critical Care patient: No ATTENDING PHYSICIAN STATEMENT I saw and evaluated the patient. I reviewed the resident's note and discussed the case with the resident. I agree with the resident's findings and plan as documented. SUBJECTIVE: OBJECTIVE: ASSESSMENT AND PLAN:
[2019-07-31] MEDS ORDERED: BACLOFEN 10 MG TABLET (FP) PO PRN (16:37)
[2019-07-31] MEDS ORDERED: PATIENT'S OWN MEDICATION (NON-FORMULARY) (Diclofenac Sodium [Voltaren] 100 GM) TP PRN (16:37)
[2019-07-31] MEDS ORDERED: ZOLPIDEM TARTRATE 5 MG TABLET PO PRN (16:43)
[2019-07-31] MEDS ORDERED: GABAPENTIN 100 MG CAPSULE (FP) ONE (17:58)
[2019-07-31] MEDS: INSULIN SLIDING SCALE (NOVOLOG) 1 VIAL SQ SCH ×2 (18:05→23:22)
[2019-07-31] MEDS: GABAPENTIN 300 MG CAPSULE (FP) PO SCH (18:06)
--- NOTE | 2019-07-31 18:15 | PN ---
Teaching Attending Note Name of Resident: Yane Tristan ATTENDING PHYSICIAN STATEMENT I saw and evaluated the patient. I reviewed the resident's note and discussed the case with the resident. I agree with the resident's findings and plan as documented. SUBJECTIVE: Patient is a 69 y/o male with a history of HIV, WPW, prediabetes, BPH, calculi, HLD, and fatty liver who presents for having left sided chest pain. which woke him up from his sleep. Patient became lightheaded and was in bed for the whole day, patient has hx of neck pain s/p neck sx , shoulder repair. Patient reports he also felt some tingling in his hand and he has left sided neck pain that radiates up. OBJECTIVE: Vital Signs Temperature 98 F 07/31/19 11:45 Pulse Rate 68 07/31/19 11:45 Respiratory Rate 18 07/31/19 11:45 Blood Pressure 141/95 07/31/19 11:45 O2 Sat by Pulse Oximetry (%) 99 07/31/19 11:45 GENERAL: The patient is awake, alert, and fully oriented, in no acute distress. HEAD: Normal with no signs of trauma. EYES: PERRL, extraocular movements intact, sclera anicteric, conjunctiva clear. ENT: Ears normal, oropharynx clear without exudates, moist mucous membranes. NECK: Trachea midline, full range of motion, supple. pressure point mild tenderness. LUNGS: Breath sounds equal, clear to auscultation bilaterally, no wheezes, no crackles, no accessory muscle use. HEART: Regular rate and rhythm, S1, S2 without murmur, rub or gallop. ABDOMEN: Soft, nontender, nondistended, normoactive bowel sounds, no guarding, no rebound, no hepatosplenomegaly, no masses. EXTREMITIES: 2+ pulses, warm, well-perfused, no edema. NEUROLOGICAL: Cranial nerves II through XII grossly intact. Normal speech. PSYCH: Normal mood, normal affect. SKIN: Warm, dry, normal turgor, no rashes or lesions noted CBCD WBC 5.2 K/mm3 (4.0-10.0) 07/31/19 13:15 RBC 4.86 M/mm3 (4.00-5.60) 07/31/19 13:15 Hgb 15.4 GM/dL (11.7-16.9) 07/31/19 13:15 Hct 44.6 % (35.4-49) 07/31/19 13:15 MCV 91.7 fl (80-96) 07/31/19 13:15 MCHC 34.6 g/dl (32.0-35.9) 07/31/19 13:15 RDW 13.2 % (11.9-15.9) 07/31/19 13:15 Plt Count 189 K/MM3 (134-434) 07/31/19 13:15 MPV 8.3 fl (7.5-11.1) 07/31/19 13:15 CMP Sodium 142 mmol/L (136-145) 07/31/19 13:15 Potassium 4.1 mmol/L (3.5-5.1) 07/31/19 13:15 Chloride 106 mmol/L (98-107) 07/31/19 13:15 Carbon Dioxide 28 mmol/L (21-32) 07/31/19 13:15 Anion Gap 7 MMOL/L (8-16) L 07/31/19 13:15 BUN 14.6 mg/dL (7-18) 07/31/19 13:15 Creatinine 1.0 mg/dL (0.55-1.3) 07/31/19 13:15 Random Glucose 132 mg/dL (74-106) H 07/31/19 13:15 Calcium 9.1 mg/dL (8.5-10.1) 07/31/19 13:15 Total Bilirubin 0.4 mg/dL (0.2-1) 07/31/19 13:15 AST 21 U/L (15-37) 07/31/19 13:15 ALT 61 U/L (13-61) 07/31/19 13:15 Alkaline Phosphatase 69 U/L (45-117) 07/31/19 13:15 Total Protein 6.9 g/dl (6.4-8.2) 07/31/19 13:15 Albumin 3.5 g/dl (3.4-5.0) 07/31/19 13:15 CARDIAC ENZYMES Creatine Kinase 66 U/L (26-308) 07/31/19 13:15 Troponin I < 0.02 ng/ml (0.00-0.05) 07/31/19 13:15 Current Medications Generic Name Dose Route Start Last Admin Trade Name Freq PRN Reason Stop Dose Admin Acetaminophen 650 mg 07/31/19 15:50 Tylenol - PO Q4H PRN PAIN OR FEVER Amiodarone HCl 100 mg 08/01/19 10:00 Cordarone - PO DAILY [facility] Aspirin 81 mg 08/01/19 10:00 Ecotrin - PO DAILY [facility] Baclofen 20 mg 07/31/19 16:37 Lioresal - PO Q8H PRN PAIN LEVEL 6-10 Docusate Sodium 100 mg 08/01/19 10:00 Colace - PO DAILY [facility] Enoxaparin Sodium 40 mg 08/01/19 10:00 Lovenox - SQ DAILY [facility] Ergocalciferol 50,000 unit 08/02/19 10:00 Drisdol - PO Fr@1000 [facility] Gabapentin 300 mg 07/31/19 16:45 07/31/19 18:06 Neurontin - PO 300 mg Q8H JOSE Administration Insulin Aspart 1 vial 07/31/19 16:30 07/31/19 18:05 Novolog Vial Sliding Scale - SQ 2 units ACHS JOSE Administration Protocol Metoprolol Succinate 50 mg 08/01/19 10:00 Toprol Xl - PO DAILY [facility] Naphazoline HCl/Pheniramine Maleate 1 drop 07/31/19 22:00 Visine-A - OU BID [facility] Non-Formulary Medication 100 gm 07/31/19 16:37 Diclofenac Sodium [Voltaren] TP TID PRN PAIN LEVEL 6-10 discontinued Non-Formulary Medication 1 tab 08/01/19 10:00 Efavirenz/Emtricitab/Tenofovir PO DAILY [facility] Non-Formulary Medication 15 meq 07/31/19 22:00 Potassium Citrate [Potassium Citrate Er] PO BID [facility] Rucag-3-Ahze Ethyl Esters 1 gm 07/31/19 22:00 Lovaza - PO BID [facility] Tamsulosin HCl 0.4 mg 08/01/19 08:30 Flomax - PO DAILY@0830 [facility] Zolpidem Tartrate 5 mg 07/31/19 16:43 Ambien - PO HS PRN INSOMNIA Home Medications Medication Instructions Recorded Metaxalone [Skelaxin] 800 mg PO TID #90 tablet MDD 3 02/01/19 Nut.tx.gluc.intoler,Lac-Fr,Soy 237 ml PO TID #90 liquid 02/04/19 [Glucerna] Olopatadine HCl [Pataday] 1 drop OU BID #1 bottle 04/17/19 Potassium Citrate [Potassium 15 meq PO BID 05/15/19 Citrate ER] Testosterone [Androgel -] 1.62 pump TD DAILY 05/15/19 Amiodarone HCl 100 mg PO DAILY #30 tablet 05/27/19 Aspirin [Ecotrin] 81 mg PO DAILY #30 tablet. 05/27/19 Cholecalciferol (Vitamin D3) 50,000 unit PO WEEKLY #4 capsule 05/27/19 [D3-50] Docusate Sodium [Colace -] 100 mg PO DAILY #30 capsule 05/27/19 Efavirenz/Emtricitab/Tenofovir 1 tab PO DAILY #30 tab 05/27/19 [Atripla Tablet -] Metformin HCl [Glucophage] 500 mg PO BID #60 tablet 05/27/19 Metoprolol Succinate [Toprol Xl] 50 mg PO DAILY #30 tab.er.24h 05/27/19 Ranitidine [Zantac -] 150 mg PO DAILY PRN #30 tablet 05/27/19 Tamsulosin HCl [Flomax -] 1 tab PO DAILY #30 capsule 05/27/19 [place]-3 Fatty Acids [[place]-3] 1 cap PO BID #60 capsule 06/13/19 Diclofenac Sodium [Voltaren] 100 gm TP TID PRN #3 tube 07/25/19 Gabapentin [Neurontin -] 300 mg PO Q8H #90 capsule 07/25/19 Vit D3/Folic Acid/B2/B6/B12 1 each PO DAILY 07/31/19 [Folgard Tablet] Zolpidem Tartrate [Ambien] 10 mg PO HS 07/31/19 CXR: clear ASSESSMENT AND PLAN: Patient is a 69 y/o male with PMHx of HIV, WPW, prediabetes, BPH, calculi, HLD, and fatty liver who presents for left sided chest pain. # Acute chest pain r/o ACs,Ce q6x 2more sets, cardio consult : dr stanley , echo ordered #Hx of HIV continue meds #Hx of neck/shoulder bl repair on muscle relaxants #Hx of BPH #T2DM continue all his home meds including pain meds.
[2019-07-31 19:50] VITALS: TEMP 98.2
[2019-07-31] MEDS ORDERED: POTASSIUM CITRATE 15 MEQ PO SCH (22:00)
[2019-07-31] MEDS ORDERED: INSULIN (NOVOLOG) ASPART 100 UNITS/ML 10ML VIAL ONE (22:16)
[2019-07-31] MEDS: OMEGA-3 ACID ETHYL ESTERS (FATTY-ACIDS) 1 GM CAPSULE (FP) PO SCH (23:22)
[2019-07-31] MEDS: NAPHAZOLINE/PHENIRAMINE OPHTHALMIC 15 ML BOTTLE OU SCH (23:23)
[2019-08-01] MEDS ORDERED: GABAPENTIN 100 MG CAPSULE (FP) ONE (01:40)
[2019-08-01] MEDS: GABAPENTIN 300 MG CAPSULE (FP) PO SCH ×2 (01:50→11:12)
[2019-08-01] MEDS: BICTEGRAV/EMTRICIT/TENOFOV (BIKTARVY) 50-200-25 MG TABLET PO SCH ×2 (02:00→10:40)
[2019-08-01 06:57] LABS: BASO % 1.2 % (0-2.0); EOS % 2.5 % (0-4.5); HEMATOCRIT 45.5 % (35.4-49); HEMOGLOBIN 15.8 GM/dL (11.7-16.9); MCHC 34.7 g/dl (32.0-35.9); MEAN CELL VOLUME 92.3 fl (80-96); MEAN PLT VOLUME 8.5 fl (7.5-11.1); MONO % 6.4 % (3.8-10.2); NEUT % 54.9 % (42.8-82.8); PLATELET COUNT 177 K/MM3 (134-434); RBC 4.93 M/mm3 (4.00-5.60); RDW 13.5 % (11.9-15.9); WHITE BLOOD COUNT 5.6 K/mm3 (4.0-10.0)
[2019-08-01] MEDS ORDERED: INSULIN (NOVOLOG) ASPART 100 UNITS/ML 10ML VIAL ONE (07:07)
[2019-08-01] MEDS: INSULIN SLIDING SCALE (NOVOLOG) 1 VIAL SQ SCH ×3 (07:09→15:46)
[2019-08-01 07:20] LABS: ALBUMIN 3.5 g/dl (3.4-5.0); BILIRUBIN,TOTAL 0.5 mg/dL (0.2-1); CALCIUM 8.7 mg/dL (8.5-10.1); MAGNESIUM 2.2 mg/dL (1.8-2.4); PHOSPHOROUS 2.8 mg/dL (2.5-4.9); POTASSIUM 4.1 mmol/L (3.5-5.1); TOT PROT 6.8 g/dl (6.4-8.2)
[2019-08-01] MEDS ORDERED: TAMSULOSIN HCL 0.4 MG CAP PO SCH (08:30)
--- NOTE | 2019-08-01 09:44 | EKG ---
Test Reason : Blood Pressure : / mmHG Vent. Rate : 076 BPM Atrial Rate : 076 BPM P-R Int : 152 ms QRS Dur : 076 ms QT Int : 386 ms P-R-T Axes : 053 -14 060 degrees QTc Int : 434 ms SINUS RHYTHM WITH OCCASIONAL and consecutive PREMATURE VENTRICULAR COMPLEXES SEPTAL INFARCT (CITED ON OR BEFORE 19-FEB-2019) ABNORMAL ECG WHEN COMPARED WITH ECG OF 19-FEB-2019 08:36, PREMATURE VENTRICULAR COMPLEXES ARE NOW PRESENT QUESTIONABLE CHANGE IN INITIAL FORCES OF SEPTAL LEADS Confirmed by RUDY CRAWFORD MD ([id number]) on 08/01/2019 9:43:55 AM Referred By: Confirmed By:RUDY CRAWFORD MD
[2019-08-01] MEDS ORDERED: AMIODARONE HCL 200 MG TABLET (FP) PO SCH (10:00)
[2019-08-01] MEDS ORDERED: ENOXAPARIN NA (PORCINE) 40 MG/0.4 ML DISP.SYRIN SQ SCH (10:00)
[2019-08-01] MEDS ORDERED: ASPIRIN COATED 81 MG TABLET.EC PO SCH (10:00)
[2019-08-01] MEDS ORDERED: PATIENT'S OWN MEDICATION (NON-FORMULARY) (Efavirenz/Emtricitab/Tenofovir 1 TAB) PO SCH (10:00)
[2019-08-01] MEDS ORDERED: DOCUSATE SODIUM 100 MG CAPSULE (FP) PO SCH (10:00)
[2019-08-01 10:12] VITALS: BP 120/70; PULSE 64
[2019-08-01] MEDS ORDERED: TAMSULOSIN HCL 0.4 MG CAP ONE (10:27)
[2019-08-01] MEDS ORDERED: ASPIRIN 81 MG CHEWABLE TABLETS ONE (10:27)
[2019-08-01] MEDS ORDERED: DOCUSATE SODIUM 100 MG CAPSULE (FP) PO ONE (10:28)
[2019-08-01] MEDS ORDERED: ENOXAPARIN NA (PORCINE) 40 MG/0.4 ML DISP.SYRIN SQ ONE (10:28)
[2019-08-01] MEDS: OMEGA-3 ACID ETHYL ESTERS (FATTY-ACIDS) 1 GM CAPSULE (FP) PO SCH (11:13)
[2019-08-01] MEDS: NAPHAZOLINE/PHENIRAMINE OPHTHALMIC 15 ML BOTTLE OU SCH (11:33)
--- NOTE | 2019-08-01 12:03 | CON.CARD ---
Cardiology Consult (text) - Consultation Consultation Note: cc: lethargy, cp hpi: 69 m hx wpw, htn, hiv, here with lethargy and cp. Past few days pt has felt tired and weak. Then yesterday had isolated episode of left chest/axilla sharp pain. No associated sxs. Resolved now, no recurrence. No exertional sxs. No sob palps loc pnd orthopnea le edema. Also with MSk pain in neck and shoulders. Sees dr stevenson for cardio. pmh: per phi psh: shoulder surgery social: no tob fam: no premature cad, scd ros: per hpi; all others nl meds: Home Medications Medication Instructions Recorded Metaxalone [Skelaxin] 800 mg PO TID #90 tablet MDD 3 02/01/19 Nut.tx.gluc.intoler,Lac-Fr,Soy 237 ml PO TID #90 liquid 02/04/19 [Glucerna] Olopatadine HCl [Pataday] 1 drop OU BID #1 bottle 04/17/19 Potassium Citrate [Potassium 15 meq PO BID 05/15/19 Citrate ER] Testosterone [Androgel -] 1.62 pump TD DAILY 05/15/19 Amiodarone HCl 100 mg PO DAILY #30 tablet 05/27/19 Aspirin [Ecotrin] 81 mg PO DAILY #30 tablet. 05/27/19 Cholecalciferol (Vitamin D3) 50,000 unit PO WEEKLY #4 capsule 05/27/19 [D3-50] Docusate Sodium [Colace -] 100 mg PO DAILY #30 capsule 05/27/19 Efavirenz/Emtricitab/Tenofovir 1 tab PO DAILY #30 tab 05/27/19 [Atripla Tablet -] Metformin HCl [Glucophage] 500 mg PO BID #60 tablet 05/27/19 Metoprolol Succinate [Toprol Xl] 50 mg PO DAILY #30 tab.er.24h 05/27/19 Ranitidine [Zantac -] 150 mg PO DAILY PRN #30 tablet 05/27/19 Tamsulosin HCl [Flomax -] 1 tab PO DAILY #30 capsule 05/27/19 [place]-3 Fatty Acids [[place]-3] 1 cap PO BID #60 capsule 06/13/19 Diclofenac Sodium [Voltaren] 100 gm TP TID PRN #3 tube 07/25/19 Gabapentin [Neurontin -] 300 mg PO Q8H #90 capsule 07/25/19 Vit D3/Folic Acid/B2/B6/B12 1 each PO DAILY 07/31/19 [Folgard Tablet] Zolpidem Tartrate [Ambien] 10 mg PO HS 07/31/19 pe: Vital Signs Period Temp Pulse Resp BP Sys/Banuelos Pulse Ox Last 24 Hr 98.2 F-98.5 F 64-75 15-18 120-137/67-88 95-98 nad no jvd rrr s1s2 no mrg cta bl nl eff abd nt nd pos bs no jaundice diaphoresis pos dp pt no carotid bruits no le e/c/c aao3 Laboratory Last Values WBC 5.6 K/mm3 (4.0-10.0) 08/01/19 06:25 RBC 4.93 M/mm3 (4.00-5.60) 08/01/19 06:25 Hgb 15.8 GM/dL (11.7-16.9) 08/01/19 06:25 Hct 45.5 % (35.4-49) 08/01/19 06:25 MCV 92.3 fl (80-96) 08/01/19 06:25 MCH 32.0 pg (25.7-33.7) 08/01/19 06:25 MCHC 34.7 g/dl (32.0-35.9) 08/01/19 06:25 RDW 13.5 % (11.9-15.9) 08/01/19 06:25 Plt Count 177 K/MM3 (134-434) 08/01/19 06:25 MPV 8.5 fl (7.5-11.1) 08/01/19 06:25 Absolute Neuts (auto) 3.1 K/mm3 (1.5-8.0) 08/01/19 06:25 Neutrophils % 54.9 % (42.8-82.8) 08/01/19 06:25 Lymphocytes % 35.0 % (8-40) 08/01/19 06:25 Monocytes % 6.4 % (3.8-10.2) 08/01/19 06:25 Eosinophils % 2.5 % (0-4.5) 08/01/19 06:25 Basophils % 1.2 % (0-2.0) 08/01/19 06:25 Nucleated RBC % 0 % (0-0) 08/01/19 06:25 PT with INR 11.30 SEC (9.7-13.0) 07/31/19 13:15 INR 0.96 (0.83-1.09) 07/31/19 13:15 PTT (Actin FS) 28.1 SECONDS (25.2-36.5) 07/31/19 13:15 Sodium 140 mmol/L (136-145) 08/01/19 06:25 Potassium 4.1 mmol/L (3.5-5.1) 08/01/19 06:25 Chloride 107 mmol/L (98-107) 08/01/19 06:25 Carbon Dioxide 26 mmol/L (21-32) 08/01/19 06:25 Anion Gap 7 MMOL/L (8-16) L 08/01/19 06:25 BUN 15.0 mg/dL (7-18) 08/01/19 06:25 Creatinine 1.0 mg/dL (0.55-1.3) 08/01/19 06:25 Est GFR (CKD-EPI)AfAm 89.23 08/01/19 06:25 Est GFR (CKD-EPI)NonAf 76.99 08/01/19 06:25 POC Glucometer 220 UNITS (80-120) 08/01/19 11:17 Random Glucose 183 mg/dL (74-106) H 08/01/19 06:25 Calcium 8.7 mg/dL (8.5-10.1) 08/01/19 06:25 Phosphorus 2.8 mg/dL (2.5-4.9) 08/01/19 06:25 Magnesium 2.2 mg/dL (1.8-2.4) 08/01/19 06:25 Total Bilirubin 0.5 mg/dL (0.2-1) 08/01/19 06:25 AST 25 U/L (15-37) 08/01/19 06:25 ALT 61 U/L (13-61) 08/01/19 06:25 Alkaline Phosphatase 68 U/L (45-117) 08/01/19 06:25 Creatine Kinase 66 U/L (26-308) 07/31/19 13:15 Troponin I < 0.02 ng/ml (0.00-0.05) 07/31/19 17:50 B-Natriuretic Peptide 125.3 pg/ml (5-125) H 07/31/19 13:15 Total Protein 6.8 g/dl (6.4-8.2) 08/01/19 06:25 Albumin 3.5 g/dl (3.4-5.0) 08/01/19 06:25 mibi 04/2017: no ischemia echo 04/2017: nl lv/rv, mild mr, mild ar, rvsp 30-40 ecg: sr pvc, nl intervals no ischemic changes cxr: clear lungs a/p: 69 m hx wpw, htn, hiv, here with lethargy and cp. cp: -atypical cp, resolved -trops neg, ecg w/o ischemic changes -does not seem cardiac -recent mibi w/o ischemia -echo is pending, if benign and cp remains resolved then no further cardiac testing needed at this time wpw: -ecg unremarkable here -cont home amio htn: -cont bb
--- NOTE | 2019-08-01 15:45 | ECHO ---
Name: JON QUEEN Exam:Adult Echocardiogram Study Date: 08/01/2019 01:33 PM Age: 69 yrs Reason For Study: R/O ACS Height: 71 in Weight: 215 lb BSA: 2.2 m2 MMode/2D Measurements & Calculations IVSd: 0.98 cm Ao root diam: 2.6 cm LVIDd: 5.0 cm LA dimension: 3.5 cm LVIDs: 3.2 cm LVPWd: 0.91 cm EDV(Teich): 119.8 ml LVOT diam: 2.1 cm ESV(Teich): 42.3 ml Doppler Measurements & Calculations MV E max shahab: 55.8 cm/sec Ao V2 max: 174.8 cm/sec MV A max shahab: 86.4 cm/sec Ao max P.2 mmHg MV E/A: 0.65 AI P1/2t: 555.4 msec MV dec time: 0.24 sec APRIL(V,D): 1.5 cm2 AI max shahab: 198.2 cm/sec LV V1 max P.2 mmHg AI max P.7 mmHg LV V1 mean P.2 mmHg AI dec slope: 104.5 cm/sec2 LV V1 max: 74.0 cm/sec LV V1 mean: 51.7 cm/sec LV V1 VTI: 14.2 cm MR max shahab: 238.3 cm/sec SV(LVOT): 49.2 ml MR max P.2 mmHg TR max shahab: 225.6 cm/sec Med Peak E' Shahab: 6.6 cm/sec TR max P.6 mmHg Med E/e': 8.4 Lat Peak E' Shahab: 7.5 cm/sec Lat E/e': 7.5 Procedure A complete two-dimensional transthoracic echocardiogram was performed (2D, M-mode, Doppler and color flow Doppler). Left Ventricle The left ventricular size, thickness and function are normal. The left ventricular ejection fraction is normal. Ejection Fraction = 60-65%. The left ventricular wall motion is normal. Right Ventricle The right ventricle is normal in size and function. Atria Normal left and right atrial size and function. Mitral Valve There is no mitral regurgitation noted. Tricuspid Valve There is trace tricuspid regurgitation. Right ventricular systolic pressure is normal. Aortic Valve Trace aortic regurgitation. Pulmonic Valve There is no pulmonic valvular regurgitation. Great Vessels The aortic root is normal size. Pericardium/Pleura There is no pericardial effusion. Interpretation Summary The left ventricular size, thickness and function are normal The right ventricle is normal in size and function. There is trace tricuspid regurgitation. Trace aortic regurgitation. MD Jon Sarmiento 08/01/2019 03:45 PM
--- NOTE | 2019-08-01 17:19 | PN ---
Teaching Attending Note Name of Resident: Lilian Marshall ATTENDING PHYSICIAN STATEMENT I saw and evaluated the patient. I reviewed the resident's note and discussed the case with the resident. I agree with the resident's findings and plan as documented. SUBJECTIVE: Patient is feeling better, no further chest pain. OBJECTIVE: Vital Signs Temperature 98.2 F 07/31/19 19:15 Pulse Rate 64 08/01/19 08:00 Respiratory Rate 15 08/01/19 08:00 Blood Pressure 120/70 08/01/19 08:00 O2 Sat by Pulse Oximetry (%) 95 07/31/19 19:15 GENERAL: The patient is awake, alert, and fully oriented, in no acute distress. HEAD: Normal with no signs of trauma. EYES: PERRL, extraocular movements intact, sclera anicteric, conjunctiva clear. ENT: Ears normal, oropharynx clear without exudates, moist mucous membranes. NECK: Trachea midline, full range of motion, supple. pressure point mild tenderness. LUNGS: Breath sounds equal, clear to auscultation bilaterally, no wheezes, no crackles, no accessory muscle use. HEART: Regular rate and rhythm, S1, S2 without murmur, rub or gallop. ABDOMEN: Soft, NT,ND, normoactive bowel sounds, no guarding, no rebound, no hepatosplenomegaly, no masses. EXTREMITIES: 2+ pulses, warm, well-perfused, no edema. NEUROLOGICAL: Cranial nerves II through XII grossly intact. Normal speech. PSYCH: Normal mood, normal affect. SKIN: Warm, dry, normal turgor, no rashes or lesions noted CBCD WBC 5.6 K/mm3 (4.0-10.0) 08/01/19 06:25 RBC 4.93 M/mm3 (4.00-5.60) 08/01/19 06:25 Hgb 15.8 GM/dL (11.7-16.9) 08/01/19 06:25 Hct 45.5 % (35.4-49) 08/01/19 06:25 MCV 92.3 fl (80-96) 08/01/19 06:25 MCHC 34.7 g/dl (32.0-35.9) 08/01/19 06:25 RDW 13.5 % (11.9-15.9) 08/01/19 06:25 Plt Count 177 K/MM3 (134-434) 08/01/19 06:25 MPV 8.5 fl (7.5-11.1) 08/01/19 06:25 CMP Sodium 140 mmol/L (136-145) 08/01/19 06:25 Potassium 4.1 mmol/L (3.5-5.1) 08/01/19 06:25 Chloride 107 mmol/L (98-107) 08/01/19 06:25 Carbon Dioxide 26 mmol/L (21-32) 08/01/19 06:25 Anion Gap 7 MMOL/L (8-16) L 08/01/19 06:25 BUN 15.0 mg/dL (7-18) 08/01/19 06:25 Creatinine 1.0 mg/dL (0.55-1.3) 08/01/19 06:25 Random Glucose 183 mg/dL (74-106) H 08/01/19 06:25 Calcium 8.7 mg/dL (8.5-10.1) 08/01/19 06:25 Total Bilirubin 0.5 mg/dL (0.2-1) 08/01/19 06:25 AST 25 U/L (15-37) 08/01/19 06:25 ALT 61 U/L (13-61) 08/01/19 06:25 Alkaline Phosphatase 68 U/L (45-117) 08/01/19 06:25 Total Protein 6.8 g/dl (6.4-8.2) 08/01/19 06:25 Albumin 3.5 g/dl (3.4-5.0) 08/01/19 06:25 CARDIAC ENZYMES Creatine Kinase 66 U/L (26-308) 07/31/19 13:15 Troponin I < 0.02 ng/ml (0.00-0.05) 07/31/19 17:50 Home Medications Medication Instructions Recorded RX: Nut.tx.gluc.intoler,Lac-Fr,Soy 237 ml PO TID #90 liquid 02/04/19 [Glucerna] RX: Olopatadine HCl [Pataday] 1 drop OU BID #1 bottle 04/17/19 RX: Potassium Citrate [Potassium 15 meq PO BID 05/15/19 Citrate ER] RX: Testosterone [Androgel -] 1.62 pump TD DAILY 05/15/19 RX: Amiodarone HCl 100 mg PO DAILY #30 tablet 05/27/19 RX: Aspirin [Ecotrin] 81 mg PO DAILY #30 tablet. 05/27/19 RX: Cholecalciferol (Vitamin D3) 50,000 unit PO WEEKLY #4 capsule 05/27/19 [D3-50] RX: Docusate Sodium [Colace -] 100 mg PO DAILY #30 capsule 05/27/19 RX: Efavirenz/Emtricitab/Tenofovir 1 tab PO DAILY #30 tab 05/27/19 [Atripla Tablet -] RX: Metformin HCl [Glucophage] 500 mg PO BID #60 tablet 05/27/19 RX: Metoprolol Succinate [Toprol 50 mg PO DAILY #30 tab.er.24h 05/27/19 Xl] RX: Ranitidine [Zantac -] 150 mg PO DAILY PRN #30 tablet 05/27/19 RX: Tamsulosin HCl [Flomax -] 1 tab PO DAILY #30 capsule 05/27/19 RX: [place]-3 Fatty Acids [[place]-3] 1 cap PO BID #60 capsule 06/13/19 RX: Gabapentin [Neurontin -] 300 mg PO Q8H #90 capsule 07/25/19 RX: Vit D3/Folic Acid/B2/B6/B12 1 each PO DAILY 07/31/19 [Folgard Tablet] Melatonin/Pyridoxine HCl (B6) 1 each PO HS #30 tablet 08/01/19 [Melatonin 5 mg Tablet] RX: Metaxalone [Skelaxin] 800 mg PO BID #90 tablet MDD 2 08/01/19 CXR: clear ASSESSMENT AND PLAN: Patient is a 69 y/o male with PMHx of HIV, WPW, prediabetes, BPH, calculi, HLD, and fatty liver who presents for left sided chest pain. # Acute chest pain; acs is rulled out , silverio neg., cardio consult : dr machuca appreciated , echo ordered and reviewed. Trace AR and trace TR, follow with cardio in a week period. #Hx of HIV continue meds #Hx of neck/shoulder bl repair on muscle relaxants #Hx of BPH #T2DM ;SS with coverage # Hx of insomnia on ambien suggested to use melatonin instead of ambien continue all his home meds including pain meds.
--- NOTE | 2019-08-01 18:23 | DS ---
Physical Exam: SUBJECTIVE: Patient seen and examined. Pt feels alot better than yesterday and chest pain much improved. had some left chest discomfort but no sharp pain like yesterday. OBJECTIVE: Vital Signs Period Temp Pulse Resp BP Sys/Banuelos Pulse Ox Last 24 Hr 98.2 F-98.5 F 64-75 15-18 120-137/67-88 95-98 PHYSICAL EXAM GENERAL: The patient is awake, alert, and fully oriented, in no acute distress. HEAD: Normal with no signs of trauma. EYES: PERRL, extraocular movements intact, sclera anicteric, conjunctiva clear. ENT: oropharynx clear without exudates, moist mucous membranes. LUNGS: Breath sounds equal, clear to auscultation bilaterally, no wheezes, no crackles, no accessory muscle use. HEART: Regular rate and rhythm, S1, S2 without murmur, rub or gallop. ABDOMEN: Soft, nontender, nondistended, normoactive bowel sounds, no guarding, no rebound, no hepatosplenomegaly, no masses. EXTREMITIES: 2+ pulses, warm, well-perfused, no edema. NEUROLOGICAL: Cranial nerves II through XII grossly intact. Normal speech, gait not observed. PSYCH: Normal mood, normal affect. SKIN: Warm, dry, normal turgor, no rashes or lesions noted. LABS Laboratory Results - last 24 hr 07/31/19 07/31/19 08/01/19 17:50 23:14 06:25 WBC 5.6 RBC 4.93 Hgb 15.8 Hct 45.5 MCV 92.3 MCH 32.0 MCHC 34.7 RDW 13.5 Plt Count 177 MPV 8.5 Absolute Neuts (auto) 3.1 Neutrophils % 54.9 Lymphocytes % 35.0 Monocytes % 6.4 Eosinophils % 2.5 Basophils % 1.2 Nucleated RBC % 0 Sodium Potassium Chloride Carbon Dioxide Anion Gap BUN Creatinine Est GFR (CKD-EPI)AfAm Est GFR (CKD-EPI)NonAf POC Glucometer 216 Random Glucose Calcium Phosphorus Magnesium Total Bilirubin AST ALT Alkaline Phosphatase Troponin I < 0.02 Total Protein Albumin 08/01/19 08/01/19 08/01/19 06:25 07:04 11:17 WBC RBC Hgb Hct MCV MCH MCHC RDW Plt Count MPV Absolute Neuts (auto) Neutrophils % Lymphocytes % Monocytes % Eosinophils % Basophils % Nucleated RBC % Sodium 140 Potassium 4.1 Chloride 107 Carbon Dioxide 26 Anion Gap 7 L BUN 15.0 Creatinine 1.0 Est GFR (CKD-EPI)AfAm 89.23 Est GFR (CKD-EPI)NonAf 76.99 POC Glucometer 175 220 Random Glucose 183 H Calcium 8.7 Phosphorus 2.8 Magnesium 2.2 Total Bilirubin 0.5 AST 25 ALT 61 Alkaline Phosphatase 68 Troponin I Total Protein 6.8 Albumin 3.5 08/01/19 15:43 WBC RBC Hgb Hct MCV MCH MCHC RDW Plt Count MPV Absolute Neuts (auto) Neutrophils % Lymphocytes % Monocytes % Eosinophils % Basophils % Nucleated RBC % Sodium Potassium Chloride Carbon Dioxide Anion Gap BUN Creatinine Est GFR (CKD-EPI)AfAm Est GFR (CKD-EPI)NonAf POC Glucometer 122 Random Glucose Calcium Phosphorus Magnesium Total Bilirubin AST ALT Alkaline Phosphatase Troponin I Total Protein Albumin CXR no acute pathology HOSPITAL COURSE: Date of Admission:07/31/19 Patient is a 69 y/o male with a history of HIV, WPW, prediabetes, BPH, calculi, HLD, and fatty liver who presents for left sided chest pain admitted to r/o ACS. Trops were negative x2. EKG showed t wave inversion which are stable from previous Ekgs. Echo from 2017 was only remarkable for pulmonary HTN. repeat echo showed no acute findings. Hx of neck/shoulder bl repair on muscle relaxants. possible source of chest pain. Date of Discharge: 08/01/19 Minutes to complete discharge: 35 Discharge Summary Problems reviewed: Yes Reason For Visit: CHEST PAIN Condition: Stable - Instructions Diet, Activity, Other Instructions: You came into the ED because of chest pain. We tested your blood for signs of heart attack and that was negative. We analyzed your heart rhythm and no acute changes compared to the last one.We took a picture of your chest which showed no acute pathology. We did an ultrasound of your heart which showed no acute pathology compared to the one in 2017. Medications: Please resume all of your home medications Please take Melatonin 5mg ONCE per night. Follow up: Please follow up with your PCP at [facility] within one week. If you do not have one, we can refer you to Dr Rollins at [address] [place] [address] Please follow up with Cardiology, Dr Sarmiento within one week. If you begin to experience worsening chest pain, difficulty breathing, shortness of breath, bleeding or fevers please return to the Emergency Room immediately. Referrals: Froilan Rollins MD [Staff Physician] - 1 Week Jon Sarmiento MD [Staff Physician] - 1 Week ON STAFF,NOT [Non Staff, Medical] - 1 Week Disposition: HOME - Home Medications Comprehensive Discharge Medication List: Ambulatory Orders Nut.tx.gluc.intoler,Lac-Fr,Soy [Glucerna] 237 ml PO TID #90 liquid 02/04/19 Olopatadine HCl [Pataday] 1 drop OU BID #1 bottle 04/17/19 Potassium Citrate [Potassium Citrate ER] 15 meq PO BID 05/15/19 Testosterone [Androgel -] 1.62 pump TD DAILY 05/15/19 Amiodarone HCl 100 mg PO DAILY #30 tablet 05/27/19 Aspirin [Ecotrin] 81 mg PO DAILY #30 tablet. 05/27/19 Cholecalciferol (Vitamin D3) [D3-50] 50,000 unit PO WEEKLY #4 capsule 05/27/19 Docusate Sodium [Colace -] 100 mg PO DAILY #30 capsule 05/27/19 Efavirenz/Emtricitab/Tenofovir [Atripla Tablet -] 1 tab PO DAILY #30 tab Metformin HCl [Glucophage] 500 mg PO BID #60 tablet 05/27/19 Metoprolol Succinate [Toprol Xl] 50 mg PO DAILY #30 tab.er.24h 05/27/19 Ranitidine [Zantac -] 150 mg PO DAILY PRN #30 tablet 05/27/19 Tamsulosin HCl [Flomax -] 1 tab PO DAILY #30 capsule 05/27/19 [place]-3 Fatty Acids [[place]-3] 1 cap PO BID #60 capsule 06/13/19 Gabapentin [Neurontin -] 300 mg PO Q8H #90 capsule 07/25/19 Vit D3/Folic Acid/B2/B6/B12 [Folgard Tablet] 1 each PO DAILY 07/31/19 Melatonin/Pyridoxine HCl (B6) [Melatonin 5 mg Tablet] 1 each PO HS #30 tablet Metaxalone [Skelaxin] 800 mg PO BID #90 tablet MDD 2 08/01/19 Problem List - Problems (1) Chest pain Code(s): R07.9 - CHEST PAIN, UNSPECIFIED (2) Chronic pain in left shoulder Code(s): M25.512 - PAIN IN LEFT SHOULDER; G89.29 - OTHER CHRONIC PAIN (3) Diabetes mellitus type 2, diet-controlled Code(s): E11.9 - TYPE 2 DIABETES MELLITUS WITHOUT COMPLICATIONS (4) Fatty liver Code(s): K76.0 - FATTY (CHANGE OF) LIVER, NOT ELSEWHERE CLASSIFIED (5) HIV (human immunodeficiency virus infection) Code(s): Z21 - ASYMPTOMATIC HUMAN IMMUNODEFICIENCY VIRUS INFECTION STATUS (6) Neck pain, chronic Code(s): M54.2 - CERVICALGIA; G89.29 - OTHER CHRONIC PAIN This patient is new to me today: Yes Date on this admission: 08/01/19 Emergency Visit: Yes ED Registration Date: 07/31/19 Care time: The patient presented to the Emergency Department on the above date and was hospitalized for further evaluation of their emergent condition. Critical Care patient: No - Discharge Referral Referred to [facility] No ATTENDING PHYSICIAN STATEMENT I saw and evaluated the patient. I reviewed the resident's note and discussed the case with the resident. I agree with the resident's findings and plan as documented. SUBJECTIVE: OBJECTIVE: ASSESSMENT AND PLAN:
[2019-08-02] MEDS ORDERED: ERGOCALCIFEROL (VIT D2) 50,000 UNIT (1.25 MG) CAPSULE PO SCH (10:00)
== END 2019-08-01 16:34 | disposition home or self-care (01) | DRG 313 ==
LOC: SUPCPDRO 10:56 → JER 10:56 → JERBED 15:08 → INTOOBSV 15:08
PROVIDERS: ADMIT Internal Medicine; ATTEND Internal Medicine
PROC: 3E013GC Introduction of Other Therapeutic Substance into Subcutaneous Tissue, Percutaneous Approach (ICD-10-PCS; principal; 2019-07-31)
DX: R07.89 Other chest pain (principal); I10 Essential (primary) hypertension; E78.5 Hyperlipidemia, unspecified; R73.03 Prediabetes; I45.6 Pre-excitation syndrome; Z21 Asymptomatic human immunodeficiency virus [HIV] infection status; N40.0 Benign prostatic hyperplasia without lower urinary tract symptoms; K76.0 Fatty (change of) liver, not elsewhere classified; M25.512 Pain in left shoulder; G89.29 Other chronic pain; Z88.6 Allergy status to analgesic agent; Z87.442 Personal history of urinary calculi; Z79.84 Long term (current) use of oral hypoglycemic drugs
CPT/HCPCS: 36415; 71045-TC-FY; 80053; 82550; 82962; 83735; 83880; 84100; 84484; 85025; 85610; 85730; 93005; 93010; 93306-TC; 96372; 99285-25; G0378

== ENCOUNTER 2020-08-11 04:27 | Day surgery (SDC) | payer MEDICARE, OTHER ==
--- OUTSIDE RECORDS SUMMARY | 2020-08-05 12:06 | XMS ---
:1950 Author Organization [facility] Care Team Providers Name Role Phone [facility] Unavailable Unavailable Re-disclosure Warning The records that you are about to access may contain information from federally- assisted alcohol or drug abuse programs. If such information is present, then the following federally mandated warning applies: This information has been disclosed to you from records protected by federal confidentiality rules (42 CFR part 2). The federal rules prohibit you from making any further disclosure of this information unless further disclosure is expressly permitted by the written consent of the person to whom it pertains or as otherwise permitted by 42 CFR part 2. A general authorization for the release of medical or other information is NOT sufficient for this purpose. The Federal rules restrict any use of the information to criminally investigate or prosecute any alcohol or drug abuse patient.The records that you are about to access may contain highly sensitive health information, the redisclosure of which is protected by Article 27-F of the [facility] Public Health law. If you continue you may haveaccess to information: Regarding HIV / AIDS; Provided by facilities licensed or operated by the [facility] Office of Mental Health; or Provided by the [facility] Office for People With Developmental Disabilities. If such information is present, then the following [facility] mandated warning applies: This information has been disclosed to you from confidential records which are protected by state law. State law prohibits you from making any further disclosure of this information without the specific written consent of the person to whom it pertains, or as otherwise permitted by law. Any unauthorized further disclosure in violation of state law may result in a fine or prison sentence or both. A general authorization for the release of medical or other information is NOT sufficient authorization for further disclosure. Allergies and Adverse Reactions Type Description Substance Reaction Status Data Source(s ) No Known No Known Allergies No Known eCW3 ( [place] Allergies Allergies [facility]) No Known No Known Allergies No Known eCW3 ( [place] Allergies Allergies [facility]) No Known No Known Allergies No Known eCW3 ( [place] Allergies Allergies [facility]) No Known No Known Allergies No Known eCW3 ( [place] Allergies Allergies [facility]) No Known No Known Allergies No Known eCW3 ( [place] Allergies Allergies [facility]) Encounters Encounter Providers Location Date Indications Data Source(s ) Outpatient Attender: [id number] 12/24/2019 [facility] ([facility] 12:24:04 PM Care Prateek rea EST Patient admitted. (ROV) Regular Office [facility] 08/27/2019 12:00: 00 AM eCW3 ([facility] A28 EDT - 08/27/2019 Health are) 12:00:00 AM EDT Outpatient [facility] 06/13/2019 12:00:00 AM eCW3 ([facility] A28 EDT - 06/13/2019 Health C are) 12:00:00 AM EDT (ROV) Regular Office [facility] 05/28/2019 12:00: 00 AM eCW3 ([facility] A28 EDT - 05/28/2019 Health are) 12:00:00 AM EDT (ROV) Regular Office [facility] 02/26/2019 12:00: 00 AM eCW3 ([facility] A28 EDT - 02/26/2019 Health C are) 12:00:00 AM EDT Outpatient [facility] 02/18/2019 12:00:00 AM eCW3 ([facility] A28 EDT - 02/18/2019 Health C are) 12:00:00 AM EDT Medications Medication Brand Start Product Dose Route Administrative Pharmacy [facility] Indications Reaction Description Data Name Date Form Instructions Instructions Source(s) Artificial Artifi 10/07/ active Artifici al eCW3 Tears 1-0.3 cial 2019 Tears 1-0.3 ( [place] % Tears 12:00: % [place] 1-0.3 00 AM Health % EST Care) Artificial Artifi 10/07/ active Artifici al eCW3 Tears 1-0.3 cial 2019 Tears 1-0.3 ( [place] % Tears 12:00: % [place] 1-0.3 00 AM Health % EST Care) Zolpidem Ambien .0 active Ambien 10 MG eCW3 tartrate 10 10 MG 2018 {tabl ([place] MG Oral 12:00: et_at [place] Tablet 00 AM _bedt Health [Ambien] EDT ime_a Care) Ambien 10 s_nee MG ded} Zolpidem Ambien .0 active Ambien 10 MG eCW3 tartrate 10 10 MG 2018 {tabl ([place] MG Oral 12:00: et_at [place] Tablet 00 AM _bedt Health [Ambien] EDT ime_a Care) Ambien 10 s_nee MG ded} Zolpidem Ambien .0 active Ambien 10 MG eCW3 tartrate 10 10 MG 2018 {tabl ([place] MG Oral 12:00: et_at [place] Tablet 00 AM _bedt Health [Ambien] EDT ime_a Care) Ambien 10 s_nee MG ded} Zolpidem Ambien .0 active Ambien 10 MG eCW3 tartrate 10 10 MG 2018 {tabl ([place] MG Oral 12:00: et_at [place] Tablet 00 AM _bedt Health [Ambien] EDT ime_a Care) Ambien 10 s_nee MG ded} Zolpidem Ambien .0 active Ambien 10 MG eCW3 tartrate 10 10 MG 2018 {tabl ([place] MG Oral 12:00: et_at [place] Tablet 00 AM _bedt Health [Ambien] EDT ime_a Care) Ambien 10 s_nee MG ded} Tamsulosin Tamsul active Tamsulosin eCW3 hydrochlori osin HCl 0.4 MG (H udson de 0.4 MG HCl [place] Oral 0.4 MG Health Capsule Care) Tamsulosin HCl 0.4 MG gabapentin Gabape active Gabapentin eCW3 300 MG Oral ntin 300 MG ([place] Capsule 300 MG [place] Gabapentin Health 300 MG Care) Tamsulosin Tamsul active Tamsulosin eCW3 hydrochlori osin HCl 0.4 MG (H udson de 0.4 MG HCl [place] Oral 0.4 MG Health Capsule Care) Tamsulosin HCl 0.4 MG metaxalone Metaxa active Metaxalone eCW3 800 MG Oral lone 800 MG ([place] Tablet 800 MG [place] Metaxalone Health 800 MG Care) Tamsulosin Tamsul active Tamsulosin eCW3 hydrochlori osin HCl 0.4 MG (H udson de 0.4 MG HCl [place] Oral 0.4 MG Health Capsule Care) Tamsulosin HCl 0.4 MG Amiodarone Amioda active Amiodarone eCW3 hydrochlori francisco j HCl 100 MG (H udson de 100 MG HCl [place] Oral Tablet 100 MG [facility] Amiodarone [facility] [place]) HCl 100 MG 60 ACTUAT AndroG active AndroGel eC W3 Testosteron el Pump 20.25 (H udson e 20.25 Pump MG/ACT [place] MG/ACTUAT 20.25 (1.62%) Health Topical Gel MG/ACT Care) [Androgel] (1.62% AndroGel ) Pump 20.25 MG/ACT (1.62%) [place] active [place] Immune eCW 3 Immune Immune Professional [facility]) Fenofibrate Fenofi active Fenofibra te eCW3 145 MG Oral brate 145 MG ([place] Tablet 145 MG [facility]) [place] active [place] Immune eCW 3 Immune Immune Professional [facility]) 60 ACTUAT AndroG active AndroGel eC W3 Testosteron el Pump 20.25 (H udson e 20.25 Pump MG/ACT [place] MG/ACTUAT 20.25 (1.62%) Health Topical Gel MG/ACT Care) [Androgel] (1.62% AndroGel ) Pump 20.25 MG/ACT (1.62%) metaxalone Metaxa active Metaxalone eCW3 800 MG Oral lone 800 MG ([place] Tablet 800 MG [place] Metaxalone Health 800 MG Care) Fenofibrate Fenofi active Fenofibra te eCW3 145 MG Oral brate 145 MG ([place] Tablet 145 MG [facility]) efavirenz Atripl active Atripla eCW 3 600 MG / a 600-200-300 ([facility] son emtricitabi 600-20 MG [place] ne 200 MG / 0-300 Health Tenofovir MG Care) disoproxil fumarate 300 MG Oral Tablet [Atripla] Atripla 600-200-300 MG Metformin Metfor 1.0 active Metformin e CW3 hydrochlori min {tabl HCl 500 mg ( [place] de 500 MG HCl et} [place] Oral Tablet 500 mg [facility]) HCl 500 mg Aspirin 81 Aspir- active Aspir-Low 81 eCW3 MG Delayed Low 81 MG ([place] Release MG [place] Oral Tablet Health [Aspir-Low] Care) Aspir-Low 81 MG Metformin Metfor 1.0 active Metformin e CW3 hydrochlori min {tabl HCl 500 mg ( [place] de 500 MG HCl et} [place] Oral Tablet 500 mg [facility]) HCl 500 mg Finasteride Finast active Finasteri de eCW3 5 MG Oral eride 5 MG ([place] Tablet 5 MG [facility]) Vitamin D UNK active Vitamin D eCW 3 (Ergocalcif (Ergocalcife ([place] chris) 25301 rol) [id number] [place] a[place]andra UNIT UNIT Health [facility] [place]) TL G-Fol OS UNK active TL G-Fol OS eCW3 500-1.1 MG 500-1.1 MG (Hu dson [facility]) Ranitidine Raniti 1.0 active Ranitidine eCW3 150 MG Oral dine {caps HCl 150 MG ( [place] Capsule HCl ule_a [place] Ranitidine 150 MG t_bed Health HCl 150 MG time} Care) Aspirin 81 Aspir- active Aspir-Low 81 eCW3 MG Delayed Low 81 MG ([place] Release MG [place] Oral Tablet Health [Aspir-Low] Care) Aspir-Low 81 MG Acetaminoph Oxycod active Oxycodone -Ac eCW3 en 325 MG / one-Ac etaminophen ([place] Oxycodone etamin 5-325 MG R[place] r Hydrochlori ophen Health de 5 MG 5-325 Care) Oral Tablet MG Oxycodone-A cetaminophe n 5-325 MG Fenofibrate Fenofi active Fenofibra te eCW3 145 MG Oral brate 145 MG ([facility] Tablet 145 MG [facility]) 24 HR Metopr active Metoprolol eCW3 metoprolol olol Succinate ER ( [place] succinate Succin 50 MG [place] 50 MG ate ER Health Extended 50 MG Care) Release Oral Tablet Metoprolol Succinate ER 50 MG efavirenz Atripl active Atripla eCW 3 600 MG / a 600-200-300 ([facility] son emtricitabi 600-20 MG [place] ne 200 MG / 0-300 Health Tenofovir MG Care) disoproxil fumarate 300 MG Oral Tablet [Atripla] Atripla 600-200-300 MG Acetaminoph Oxycod active Oxycodone -Ac eCW3 en 325 MG / one-Ac etaminophen ([place] Oxycodone etamin 5-325 MG [place] Hydrochlori ophen Health de 5 MG 5-325 Care) Oral Tablet MG Oxycodone-A cetaminophe n 5-325 MG 60 ACTUAT Testos active Testosteron e eCW3 Testosteron terone 20.25 MG/AC T ([place] e 20.25 20.25 (1.62%) [place] MG/ACTUAT MG/ACT Health Topical Gel (1.62% Care) Testosteron ) e 20.25 MG/ACT (1.62%) Finasteride Finast active Finasteri de eCW3 5 MG Oral eride 5 MG ([place] Tablet 5 MG [facility]) metaxalone Metaxa active Metaxalone eCW3 800 MG Oral lone 800 MG ([facility] [place] Metaxalone Health 800 MG Care) Aspirin 81 Aspir- active Aspir-Low 81 eCW3 MG Delayed Low 81 MG ([place] Release MG [place] Oral Tablet Health [Aspir-Low] Care) Aspir-Low 81 MG Lidocaine 5 Lidoca active Lidocaine 5 eCW3 % ine 5 % ([place] % [facility]) Amitriptyli Amitri active Amitripty daksha eCW3 ne ptylin e HCl 10 MG ([facility] [place] de 10 MG 10 MG Health Oral Tablet Care) Amitriptyli ne HCl 10 MG Metformin Metfor 1.0 active Metformin e CW3 hydrochlori min {tabl HCl 500 mg ( [place] de 500 MG HCl et} [place] Oral Tablet 500 mg [facility] Metformin Care) HCl 500 mg Diclofenac Voltar active Voltaren 1 % eCW3 Sodium 0.01 en 1 % ([facility] [place] Topical Gel Health [[facility]] Care) Voltaren 1 % metaxalone Metaxa active Metaxalone eCW3 800 MG Oral lone 800 MG ([facility] MG [place] Metaxalone Health 800 MG Care) gabapentin Gabape active Gabapentin eCW3 300 MG Oral ntin 300 MG ([place] Capsule 300 MG [place] Gabapentin Health 300 MG Care) Amitriptyli Amitri active Amitripty daksha eCW3 ne ptylin e HCl 10 MG ([place] Hydrochlori e HCl [place] de 10 MG 10 MG Health Oral Tablet Care) Amitriptyli ne HCl 10 MG Lidocaine 5 Lidoca active Lidocaine 5 eCW3 % ine 5 % ([facility]) Amitriptyli Amitri active Amitripty daksha eCW3 ne ptylin e HCl 10 MG ([place] Hydrochlori e HCl [place] de 10 MG 10 MG Health Oral Tablet Care) Amitriptyli ne HCl 10 MG 60 ACTUAT Testos active Testosteron e eCW3 Testosteron terone 20.25 MG/AC T ([place] e 20.25 20.25 (1.62%) [place] MG/ACTUAT MG/ACT Health Topical Gel (1.62% Care) Testosteron ) e 20.25 MG/ACT (1.62%) gabapentin Gabape active Gabapentin eCW3 300 MG Oral ntin 300 MG ([facility] MG [place] Gabapentin [facility] 300 MG Care) Lidocaine 5 Lidoca active Lidocaine 5 eCW3 % ine 5 % ([facility]) Ranitidine UNK 1.0 active Ranitidine e CW3 HCl 150 MG {caps HCl 150 MG (H son ule_a [place] t_bed Health time} Care) Diclofenac Voltar active Voltaren 1 % eCW3 Sodium 0.01 en 1 % ([place] MG/MG [place] Topical Gel Health [[facility]] Care) Voltaren 1 % Fenofibrate Fenofi active Fenofibra te eCW3 145 MG Oral brate 145 MG ([place] Tablet 145 MG [facility]) Lidocaine 5 Lidoca active Lidocaine 5 eCW3 % ine 5 % ([facility]) Aspirin 81 Aspir- active Aspir-Low 81 eCW3 MG Delayed Low 81 MG ([place] Release MG [place] Oral Tablet Health [[facility]] Care) Aspir-Low 81 MG Metformin Metfor 1.0 active Metformin e CW3 hydrochlori min {tabl HCl 500 mg ( [place] de 500 MG HCl et} [place] Oral Tablet 500 mg [facility]) HCl 500 mg Aspir-Low UNK active Aspir-Low 81 eCW3 81 MG MG ([facility]) Diclofenac Voltar active Voltaren 1 % eCW3 Sodium 0.01 en 1 % ([place] MG/MG [place] Topical Gel Health [Voltaren] Care) Voltaren 1 % Fenofibrate Fenofi active Fenofibra te eCW3 145 MG Oral brate 145 MG ([place] Tablet 145 MG [facility]) Tamsulosin Tamsul active Tamsulosin eCW3 hydrochlori osin HCl 0.4 MG (H udson de 0.4 MG HCl [place] Oral 0.4 MG [facility]) Tamsulosin HCl 0.4 MG Acetaminoph Oxycod active Oxycodone -Ac eCW3 en 325 MG / one-Ac etaminophen ([place] Oxycodone etamin 5-325 MG [facility] MG 5-325 Care) Oral Tablet MG Oxycodone-A cetaminophe n 5-325 MG Acetaminoph Oxycod active Oxycodone -Ac eCW3 en 325 MG / one-Ac etaminophen ([place] Oxycodone etamin 5-325 MG [facility] de 5 MG 5-325 Care) Oral Tablet MG Oxycodone-A cetaminophe n 5-325 MG TL G-Fol OS UNK active TL G-Fol OS eCW3 500-1.1 MG 500-1.1 MG ([facility]) TL G-Fol OS UNK active TL G-Fol OS eCW3 500-1.1 MG 500-1.1 MG ([facility]) Finasteride Finast active Finasteri de eCW3 5 MG Oral eride 5 MG ([place] Tablet 5 MG [facility]) Lidocaine 5 Lidoca active Lidocaine 5 eCW3 % ine 5 % ([place] % [facility]) Amitriptyli Amitri active Amitripty daksha eCW3 ne ptylin e HCl 10 MG ([place] Hydrochlori e HCl [place] de 10 MG 10 MG Health Oral Tablet Care) Amitriptyli ne HCl 10 MG Amiodarone Amioda active Amiodarone eCW3 hydrochlori francisco j HCl 100 MG (H udson de 100 MG HCl [place] Oral Tablet 100 MG Health Amiodarone Care) HCl 100 MG efavirenz Atripl active Atripla eCW 3 600 MG / a 600-200-300 ([place] son emtricitabi 600-20 MG [place] ne 200 MG / 0-300 Health Tenofovir MG Care) disoproxil fumarate 300 MG Oral Tablet [Atripla] Atripla 600-200-300 MG Finasteride Finast active Finasteri de eCW3 5 MG Oral eride 5 MG ([place] Tablet 5 MG [facility]) Tamsulosin Tamsul active Tamsulosin eCW3 hydrochlori osin HCl 0.4 MG (H udson de 0.4 MG HCl [place] Oral 0.4 MG Health Capsule Care) Tamsulosin HCl 0.4 MG Diclofenac Voltar active Voltaren 1 % eCW3 Sodium 0.01 en 1 % ([place] MG/MG [place] Topical Gel Health [Voltaren] Care) Voltaren 1 % 60 ACTUAT AndroG active AndroGel eC W3 Testosteron el Pump 20.25 (H udson e 20.25 Pump MG/ACT [place] MG/ACTUAT 20.25 (1.62%) Health Topical Gel MG/ACT Care) [Androgel] (1.62% AndroGel ) Pump 20.25 MG/ACT (1.62%) 60 ACTUAT Testos active Testosteron e eCW3 Testosteron terone 20.25 MG/AC T ([place] e 20.25 20.25 (1.62%) [place] MG/ACTUAT MG/ACT Health Topical Gel (1.62% Care) Testosteron ) e 20.25 MG/ACT (1.62%) TL G-Fol OS TL active TL G-Fol OS eCW3 500-1.1 MG G-Fol 500-1.1 MG (H udson OS [place] 500-1. Health 1 MG Care) 60 ACTUAT Testos active Testosteron e eCW3 Testosteron terone 20.25 MG/AC T ([place] e 20.25 20.25 (1.62%) [place] MG/ACTUAT MG/ACT Health Topical Gel (1.62% Care) Testosteron ) e 20.25 MG/ACT (1.62%) potassium Potass active Potassium e CW3 citrate 15 ium Citrate ER (Hu dson MEQ Citrat 15 MEQ (1620 [place] Extended e ER MG) Health Release 15 MEQ Care) Oral Tablet (1620 Potassium MG) Citrate ER 15 MEQ (1620 MG) metaxalone Metaxa active Metaxalone eCW3 800 MG Oral lone 800 MG ([place] Tablet 800 MG [place] Metaxalone Health 800 MG Care) Vitamin D UNK active Vitamin D eCW 3 (Ergocalcif (Ergocalcife ([place] chris) 32066 rol) [id number] Ri alexandra UNIT UNIT Health Care) 24 HR Metopr active Metoprolol eCW3 metoprolol olol Succinate ER ( [place] succinate Succin 50 MG [place] 50 MG ate ER Health Extended 50 MG Care) Release Oral Tablet Metoprolol Succinate ER 50 MG Ranitidine Raniti 1.0 active Ranitidine eCW3 150 MG Oral dine {caps HCl 150 MG ( [place] Capsule HCl ule_a [place] Ranitidine 150 MG t_bed Health HCl 150 MG time} Care) 24 HR Metopr active Metoprolol eCW3 metoprolol olol Succinate ER ( [place] succinate Succin 50 MG [place] 50 MG ate ER Health Extended 50 MG Care) Release Oral Tablet Metoprolol Succinate ER 50 MG Diclofenac Voltar active Voltaren 1 % eCW3 Sodium 0.01 en 1 % ([place] MG/MG [place] Topical Gel Health [Voltaren] Care) Voltaren 1 % TL G-Fol OS TL active TL G-Fol OS eCW3 500-1.1 MG G-Fol 500-1.1 MG (H udson OS [place] 500-1. Health 1 MG Care) potassium Potass active Potassium e CW3 citrate 15 ium Citrate ER (Hu dson MEQ Citrat 15 MEQ (1620 [place] Extended e ER MG) Health Release 15 MEQ Care) Oral Tablet (1620 Potassium MG) Citrate ER 15 MEQ (1620 MG) efavirenz Atripl active Atripla eCW 3 600 MG / a 600-200-300 ([facility] son emtricitabi 600-20 MG [place] ne 200 MG / 0-300 Health Tenofovir MG Care) disoproxil fumarate 300 MG Oral Tablet [Atripla] Atripla 600-200-300 MG Vitamin D UNK active Vitamin D eCW 3 (Ergocalcif (Ergocalcife ([place] chris) 16699 rol) 57489 Ri a[place]andra UNIT UNIT Health Care) [place] active [place] Immune eCW 3 Immune Immune Professional ([facility]) Metformin Metfor 1.0 active Metformin e CW3 hydrochlori min {tabl HCl 500 mg ( [place] de 500 MG HCl et} [place] Oral Tablet 500 mg Health Metformin Care) HCl 500 mg 24 HR Metopr active Metoprolol eCW3 metoprolol olol Succinate ER ( [place] succinate Succin 50 MG [place] 50 MG ate ER Health Extended 50 MG Care) Release Oral Tablet Metoprolol Succinate ER 50 MG 60 ACTUAT AndroG active AndroGel eC W3 Testosteron el Pump 20.25 (H udson e 20.25 Pump MG/ACT [place] MG/ACTUAT 20.25 (1.62%) Health Topical Gel MG/ACT Care) [Androgel] (1.62% AndroGel ) Pump 20.25 MG/ACT (1.62%) Vitamin D UNK active Vitamin D eCW 3 (Ergocalcif (Ergocalcife ([place] chris) 47765 rol) 27501 Ri alexandra UNIT UNIT Health [facility] [place]) Acetaminoph Oxycod active Oxycodone -Ac eCW3 en 325 MG / one-Ac etaminophen ([place] Oxycodone etamin 5-325 MG [place] r Hydrochlori ophen Health de 5 MG 5-325 Care) Oral Tablet MG Oxycodone-A cetaminophe n 5-325 MG Finasteride Finast active Finasteri de eCW3 5 MG Oral eride 5 MG ([place] Tablet 5 MG [facility]) efavirenz Atripl active Atripla eCW 3 600 MG / a 600-200-300 ([facility] son emtricitabi 600-20 MG [place] ne 200 MG / 0-300 Health Tenofovir MG Care) disoproxil fumarate 300 MG Oral Tablet [Atripla] Atripla 600-200-300 MG Vitamin D UNK active Vitamin D eCW 3 (Ergocalcif (Ergocalcife ([place] chris) 23064 rol) 83990 Ri alexandra UNIT UNIT Health Care) Ranitidine Raniti 1.0 active Ranitidine eCW3 150 MG Oral dine {caps HCl 150 MG ( [place] Capsule HCl ule_a [place] Ranitidine 150 MG t_bed Health HCl 150 MG time} Care) [place] active [place] Immune eCW 3 Immune Immune Professional ([facility]) potassium Potass active Potassium e CW3 citrate 15 ium Citrate ER (Hu dson MEQ Citrat 15 MEQ (1620 [place] Extended e ER MG) Health Release 15 MEQ Care) Oral Tablet (1620 Potassium MG) Citrate ER 15 MEQ (1620 MG) Amiodarone Amioda active Amiodarone eCW3 hydrochlori francisco j HCl 100 MG (H udson de 100 MG HCl [place] Oral Tablet 100 MG Health Amiodarone Care) HCl 100 MG gabapentin Gabape active Gabapentin eCW3 300 MG Oral ntin 300 MG ([place] Capsule 300 MG [place] Gabapentin Health 300 MG Care) potassium Potass active Potassium e CW3 citrate 15 ium Citrate ER (Hu dson MEQ Citrat 15 MEQ (1620 [place] Extended e ER MG) Health Release 15 MEQ Care) Oral Tablet (1620 Potassium MG) Citrate ER 15 MEQ (1620 MG) Amiodarone Amioda active Amiodarone eCW3 hydrochlori francisco j HCl 100 MG (H udson de 100 MG HCl [place] Oral Tablet 100 MG Health Amiodarone Care) HCl 100 MG gabapentin Gabape active Gabapentin eCW3 300 MG Oral ntin 300 MG ([place] Capsule 300 MG [place] Gabapentin Health 300 MG Care) potassium Potass active Potassium e CW3 citrate 15 ium Citrate ER (Hu dson MEQ Citrat 15 MEQ (1620 [place] Extended e ER MG) Health Release 15 MEQ Care) Oral Tablet (1620 Potassium MG) Citrate ER 15 MEQ (1620 MG) Amiodarone Amioda active Amiodarone eCW3 hydrochlori francisco j HCl 100 MG (H udson de 100 MG HCl [place] Oral Tablet 100 MG Health Amiodarone Care) HCl 100 MG Ranitidine Raniti 1.0 active Ranitidine eCW3 150 MG Oral dine {caps HCl 150 MG ( [place] Capsule HCl ule_a [place] Ranitidine 150 MG t_bed Health HCl 150 MG time} Care) 24 HR Metopr active Metoprolol eCW3 metoprolol olol Succinate ER ( [place] succinate Succin 50 MG [place] 50 MG ate ER Health Extended 50 MG Care) Release Oral Tablet Metoprolol Succinate ER 50 MG Amitriptyli Amitri active Amitripty daksha eCW3 ne ptylin e HCl 10 MG ([place] Hydrochlori e HCl [place] de 10 MG 10 MG Health Oral Tablet Care) Amitriptyli ne HCl 10 MG 60 ACTUAT Testos active Testosteron e eCW3 Testosteron terone 20.25 MG/AC T ([place] e 20.25 20.25 (1.62%) [place] MG/ACTUAT MG/ACT Health Topical Gel (1.62% Care) Testosteron ) e 20.25 MG/ACT (1.62%) 60 ACTUAT AndroG active AndroGel eC W3 Testosteron el Pump 20.25 (H udson e 20.25 Pump MG/ACT [place] MG/ACTUAT 20.25 (1.62%) Health Topical Gel MG/ACT Care) [Androgel] (1.62% AndroGel ) Pump 20.25 MG/ACT (1.62%) [place] active [place] Immune eCW 3 Immune Immune Professional ([facility]) Insurance Providers Payer name Policy type Policy ID Covered Covered democrat's Policy P ashley / Coverage democrat ID relationship to Simon Inf ormation type simon MEDICAID [id number] SP [id number] SAMIA [id number] SP [id number] 400 MEDICARE ADV PLAN SAMIA [id number] SP [id number] 400 MEDICARE ADV PLAN MEDICAID [id number] SP [id number] SAMIA [id number] SP [id number] 400 MEDICARE ADV PLAN NELY MEDICARE [id number] SP [id number] NELY MEDICARE [id number] SP [id number] SAMIA [id number] SP [id number] MEDICARE ADV PLAN MEDICARE [id number] SP [id number] U13 MEDICAID [id number] SP [id number] MEDICARE [id number] SP [id number] [id number] Problems, Conditions, and Diagnoses Code Display Name Description Problem Effective Data Type Dates Source(s) H04.123 Dry eyes, bilateral Dry eyes, bilateral Problem 019 eCW3 12:00:00 AM ([facility]) G47.00 Insomnia, unspecified Insomnia, unspecified Problem 03/2019 eCW3 type type 12:00:00 AM ([facility]) E11.9 Diabetes mellitus Diabetes mellitus Problem 05/28/2019 eCW3 12:00:00 AM ([facility]) B20 HIV disease HIV disease Problem 11/19/2018 eCW3 12:00:00 AM ([facility]) I48.2 Chronic atrial Chronic atrial Problem 09/14/2017 eCW3 fibrillation fibrillation 12:00:00 AM ([facility]) I51.9 Heart disease Heart disease Problem 09/14/2017 eCW3 12:00:00 AM ([facility]) N28.1 Renal cyst Renal cyst Problem 09/05/2017 eCW3 12:00:00 AM ([facility]) N20.0 Calculus of kidney Calculus of kidney Problem 7 eCW3 12:00:00 AM ([facility]) R10.11 RUQ abdominal pain RUQ abdominal pain Problem 7 eCW3 12:00:00 AM ([facility]) G89.29 Chronic pain Chronic pain Problem 08/30/2017 eCW3 12:00:00 AM ([facility]) J32.9 Sinusitis Sinusitis Problem 05/16/2017 eCW3 12:00:00 AM ([facility]) H52.4 Presbyopia OU Presbyopia OU Problem 05/15/2017 eCW3 12:00:00 AM ([facility]) H16.223 Keratoconjunctivitis Keratoconjunctivitis Problem 05/11 eCW3 sicca of both eyes not sicca of both eyes not 1 2:00:00 AM ([place] specified as [facility] specified as [facility]) H25.13 Nuclear age-related Nuclear age-related Problem 017 eCW3 cataract, both eyes cataract, both eyes 12:00:0 0 AM ([facility]) G47.00 Insomnia Insomnia Problem 11/10/2016 eCW3 12:00:00 AM ([facility]) Surgeries/Procedures Procedure Description Date Indications Data Source(s) DEBRIDEMENT NAIL ANY 02/26/2019 eCW3 ([facility] [place] METHOD 6/> 12:00:00 AM [facility]) PARING/CUTTING BENIGN 02/26/2019 eCW3 ( [facility] HYPERKERATOTIC LESION 2-4 12:00:00 AM [facility]) Results ID Date Data Source [id number] 07/13/2020 12:29:00 PM EDT [facility] Name Value Range Interpretation Description Data Sup porting Code Source(s) Document(s ) SARS [facility] coronavirus 2 RNA This lab was ordered by [facility] and reported by [facility]. ID Date Data Source [id number] 05/29/2020 10:00:00 PM EDT [facility] Name Value Range Interpretation Code Description Data Raya rce(s) Supporting Document(s ) SARS-CoV-2 [facility] BY PCR This lab was ordered by JOSEP Castro and reported by [facility]. ID Date Data Source [id number] 05/05/2020 10:00:00 PM EDT [facility] Name Value Range Interpretation Code Description Data Raya rce(s) Supporting Document(s ) SARS-CoV-2 [facility] BY PCR This lab was ordered by JOSEP Castro and reported by [facility]. Procedure Social History Code Duration Value Status Description Data Source(s ) Smoking Unknown if ever completed Unknown if ever eCW3 ([facility] Smoking Unknown if ever completed Unknown if ever eCW3 ([facility]) Smoking Unknown if ever completed Unknown if ever eCW3 ([facility]) Smoking Unknown if ever completed Unknown if ever eCW3 ([facility]) Smoking Unknown if ever completed Unknown if ever eCW3 ([facility]) Smoking Unknown if ever completed Unknown if ever Trino Johnson smoked [facility] Vital Signs ID Date Data Source UNK Name Value Range Interpretation Code Description Data Source(s) Body temperature 97.5 [degF] 97.5 [degF] eCW3 ( [facility]) Heart rate 20 /min 20 /min eCW3 ([facility]) Body mass index 32.54 kg/m2 32.54 kg/m2 eCW3 ([facility] (BMI) [Ratio] [facility]) Body weight 214 [lb_av] 214 [lb_av] eCW3 ([facility]) Body height 68 [in_i] 68 [in_i] eCW3 ([facility]) Diastolic blood 83 mm[Hg] 83 mm[Hg] eCW3 ([facility]) Systolic blood 115 mm[Hg] 115 mm[Hg] eCW3 ([facility]) Diastolic blood 75 mm[Hg] 75 mm[Hg] eCW3 ([facility]) Systolic blood 131 mm[Hg] 131 mm[Hg] eCW3 ([facility]) Body temperature 98.0 [degF] 98.0 [degF] eCW3 ( [facility]) Heart rate 20 /min 20 /min eCW3 ([facility]) Body mass index 32.38 kg/m2 32.38 kg/m2 eCW3 ([facility] (BMI) [Ratio] [facility]) Body weight 213 [lb_av] 213 [lb_av] eCW3 ([facility]) Body height 68 [in_i] 68 [in_i] eCW3 ([facility]) Diastolic blood 92 mm[Hg] 92 mm[Hg] eCW3 ([facility]) Systolic blood 133 mm[Hg] 133 mm[Hg] eCW3 ([facility]) Body temperature 97.6 [degF] 97.6 [degF] eCW3 ( [facility]) Heart rate 20 /min 20 /min eCW3 ([facility]) Body mass index 32.69 kg/m2 32.69 kg/m2 eCW3 ([facility] (BMI) [Ratio] [facility]) Body weight 215 [lb_av] 215 [lb_av] eCW3 ([facility]) Body height 68 [in_i] 68 [in_i] eCW3 ([facility]) Diastolic blood 66 mm[Hg] 66 mm[Hg] eCW3 ([facility]) Systolic blood 100 mm[Hg] 100 mm[Hg] eCW3 ([facility]) Body temperature 97.9 [degF] 97.9 [degF] eCW3 ( [facility]) Heart rate 20 /min 20 /min eCW3 ([facility]) Body mass index 32.84 kg/m2 32.84 kg/m2 eCW3 ([facility] (BMI) [Ratio] [facility]) Body weight 216 [lb_av] 216 [lb_av] eCW3 ([facility]) Body height 68 [in_i] 68 [in_i] eCW3 ([facility]) Diastolic blood 58 mm[Hg] 58 mm[Hg] eCW3 ([facility]) Systolic blood 95 mm[Hg] 95 mm[Hg] eCW3 ([facility]) Body temperature 97.9 [degF] 97.9 [degF] eCW3 ( [facility]) Heart rate 20 /min 20 /min eCW3 ([facility]) Body mass index 32.84 kg/m2 32.84 kg/m2 eCW3 ([facility] (BMI) [Ratio] [facility]) Body weight 216 [lb_av] 216 [lb_av] eCW3 ([facility]) Body height 68 [in_i] 68 [in_i] eCW3 ([facility]) Patient Treatment Plan of Care Planned Activity Planned Date Details Description Data Source (s) Artificial Tears 1-0.3 10/07/2019 12:00:00 eCW3 ([facility]) Artificial Tears 1-0.3 10/07/2019 12:00:00 eCW3 ([facility])
[2020-08-10 09:52] VITALS: BMI 28.5
[~2020-08-11 04:27] MED LIST: ceFAZolin SODIUM 1 GM VIAL IVPB ONE
--- OUTSIDE RECORDS SUMMARY | 2020-08-11 04:32 | XMS ---
:1950 [facility] Organization [facility] Care Team Providers Name Role Phone [facility], [facility]9 Unavailable Unavailable Re-disclosure Warning The records that [...] is protected by Article 27-F of the [facility] Public Health law. If you continue you may haveaccess to information: Regarding HIV / AIDS; Provided by facilities licensed or operated by the [facility] Office of Mental Health; or Provided by the [facility] Office for People With Developmental Disabilities. If such information is present, then the following [facility] mandated warning applies: This information has been [...] law may result in a fine or long term sentence or both. A general authorization for the release of medical or other information is NOT sufficient authorization for further disclosure. Allergies and Adverse Reactions Type Description Substance Reaction Status Data Source(s ) No Known No Known Allergies No Known eCW3 ( [place] Allergies Allergies [facility]) No Known No Known Allergies No Known eCW3 ( [place] Allergies Allergies [facility]) No Known No Known Allergies No Known eCW3 ( [place] Allergies Allergies [facility]) No Known No Known Allergies No Known eCW3 ( [place] Allergies Allergies [facility]) No Known No Known Allergies No Known eCW3 ( [place] Allergies Allergies [facility]) Encounters Encounter Providers Location Date Indications Data Source(s ) Outpatient Attender: [id number] 12/24/2019 GSI ([facility] 12:24:04 PM Care Prateek downey) EST Patient admitted. (ROV) Regular Office [facility] 08/27/2019 12:00: 00 AM eCW3 ([facility] A28 EDT - 08/27/2019 Health C are) 12:00:[address] [facility] 06/13/2019 12:00:00 AM eCW3 ([facility] A28 EDT - 06/13/2019 Health C are) 12:00:00 AM EDT (RO) Regular Office [facility] 05/28/2019 12:00: 00 AM eCW3 ([facility] A28 EDT - 05/28/2019 Health C are) 12:00:00 AM EDT (ROV) Regular Office [facility] 02/26/2019 12:00: 00 AM eCW3 ([facility] A28 EDT - 02/26/2019 Health C are) 12:00:[address] [facility] 02/18/2019 12:00:00 AM eCW3 ([facility] A28 EDT - 02/18/2019 Health C are) 12:00:00 AM EDT Medications Medication Brand Start Product Dose Route Administrative Pharmacy [facility] Indications Reaction Description Data Name Date Form Instructions Instructions Source(s) Artificial Artifi 10/07/ active Artifici al eCW3 Tears 1-0.3 cial 2019 Tears 1-0.3 ( [place] % Tears 12:00: % River 1-0.3 00 [...] MG HCl [place] Oral Tablet 100 MG [facility] Amiodarone [facility]) HCl 100 MG 60 ACTUAT AndroG active AndroGel eC W3 Testosteron el Pump 20.25 (H udson e 20.25 Pump MG/ACT [place] MG/ACTUAT 20.25 (1.62%) Health Topical Gel MG/ACT Care) [Androgel] (1.62% AndroGel ) Pump 20.25 MG/ACT (1.62%) K-Clive K-Clive active K-Clive Immune eCW 3 Immune Immune Professional (Leif Keenan [facility]) Fenofibrate Fenofi active Fenofibra te eCW3 145 MG Oral brate 145 MG ([place] Tablet 145 MG [facility]) K-Clive K-Clive active K-Clive Immune eCW 3 Immune Immune Professional (Leif Keenan [facility]) 60 ACTUAT AndroG active AndroGel eC W3 Testosteron el Pump 20.25 (H udson e 20.25 Pump MG/ACT [place] MG/ACTUAT 20.25 (1.62%) Health Topical Gel MG/ACT Care) [Androgel] (1.62% AndroGel ) Pump 20.25 MG/ACT (1.62%) metaxalone Metaxa active Metaxalone eCW3 800 MG Oral lone 800 MG ([place] Tablet 800 MG [place] Metaxalone Health 800 MG Care) Fenofibrate Fenofi active Fenofibra te eCW3 145 MG Oral brate 145 MG ([place] Tablet 145 MG [facility]) efavirenz Atripl active Atripla eCW 3 600 MG / a 600-200-300 ([facility] son emtricitabi 600-20 MG [place] ne 200 MG / 0-300 Health Tenofovir MG Care) disoproxil fumarate 300 MG Oral Tablet [Atripla] Atripla 600-200-300 MG Metformin Metfor 1.0 active Metformin e CW3 hydrochlori min {tabl HCl 500 mg ( Gomez de 500 MG HCl et} [place] Oral Tablet 500 mg [facility]) HCl 500 mg Aspirin 81 Aspir- active Aspir-Low 81 eCW3 MG Delayed Low 81 MG (Gomez Release MG [place] Oral Tablet Health [Aspir-Low] Care) Aspir-Low 81 MG Metformin Metfor 1.0 active Metformin e CW3 hydrochlori min {tabl HCl 500 mg ( [place] de 500 MG HCl et} [place] Oral Tablet 500 mg [facility]) HCl 500 mg Finasteride Finast active Finasteri de eCW3 5 MG Oral eride 5 MG ([place] Tablet 5 MG [facility]) Vitamin D UNK active Vitamin D eCW 3 (Ergocalcif (Ergocalcife ([place] chris) [id number] rol) [id number] Ri alexandra [facility] Health [facility]) TL G-Fol OS UNK active TL G-Fol OS eCW3 500-1.1 MG 500-1.1 MG (Hu dson [facility]) Ranitidine Raniti 1.0 active Ranitidine eCW3 150 MG Oral dine {caps HCl 150 MG ( [place] Capsule HCl ule_a [place] Ranitidine 150 MG t_bed Health HCl 150 [...] 145 MG ([place] Tablet 145 MG [facility]) 24 HR Metopr active Metoprolol eCW3 metoprolol olol Succinate ER ( [place] succinate Succin 50 MG River 50 MG ate ER Health Extended 50 MG Care) Release Oral Tablet Metoprolol Succinate ER 50 MG efavirenz Atripl active Atripla eCW 3 600 MG / a 600-200-300 ([facility] son emtricitabi 600-20 MG [place] ne 200 MG / 0-300 Health Tenofovir MG Care) disoproxil fumarate 300 MG Oral Tablet [Atripla] Atripla 600-200-300 MG Acetaminoph Oxycod active Oxycodone -Ac eCW3 en 325 MG / one-Ac etaminophen ([place] Oxycodone etamin 5-325 MG Rive r Hydrochlori [...] eride 5 MG (Gomez Tablet 5 MG [facility]) metaxalone Metaxa active Metaxalone eCW3 800 MG Oral lone 800 MG ([facility] n Tablet 800 MG [place] Metaxalone Health 800 MG Care) Aspirin 81 Aspir- active Aspir-Low 81 eCW3 MG Delayed Low 81 MG ([place] Release MG [place] Oral Tablet Health [Aspir-Low] Care) Aspir-Low 81 MG Lidocaine 5 Lidoca active Lidocaine 5 eCW3 % ine 5 % (Gomez % [place] [facility]) Amitriptyli Amitri active Amitripty daksha eCW3 ne ptylin e HCl 10 [facility] [place] de 10 MG 10 MG Health Oral Tablet Care) Amitriptyli ne HCl 10 MG Metformin Metfor 1.0 active Metformin e CW3 hydrochlori min {tabl HCl 500 mg ( [place] de 500 MG HCl et} [place] Oral Tablet 500 mg [facility] Metformin Care) HCl 500 mg Diclofenac Voltar active Voltaren 1 % eCW3 Sodium 0.01 en 1 % ([place] MG/MG [place] Topical Gel Health [[facility]] Care) Voltaren 1 % metaxalone Metaxa active Metaxalone eCW3 800 MG Oral lone 800 [facility] [place] Metaxalone Health 800 MG Care) gabapentin Gabape active Gabapentin eCW3 300 MG Oral ntin 300 MG ([place] Capsule 300 MG [place] Gabapentin Health 300 MG Care) Amitriptyli Amitri active Amitripty daksha eCW3 ne ptylin e HCl 10 MG ([place] Hydrochlori e HCl [place] de 10 MG 10 MG Health Oral Tablet Care) Amitriptyli ne HCl 10 MG Lidocaine 5 Lidoca active Lidocaine 5 eCW3 % ine 5 % ([facility]) Amitriptyli Amitri active Amitripty daksha eCW3 ne [...] eCW3 300 MG Oral ntin 300 MG ([facility] [place] Gabapentin Health 300 MG Care) Lidocaine 5 Lidoca active Lidocaine 5 eCW3 % ine 5 % ([facility]) Ranitidine UNK 1.0 active Ranitidine e CW3 HCl 150 MG {caps HCl 150 [facility] ([facility] [place] t[facility]bed [facility] time} Care) Diclofenac Voltar active Voltaren 1 % eCW3 Sodium 0.01 en 1 % ([place] MG/MG [place] Topical Gel Health [[facility]] Care) Voltaren 1 % Fenofibrate Fenofi active Fenofibra te eCW3 145 MG Oral brate 145 MG ([place] Tablet 145 MG [facility]) Lidocaine 5 Lidoca active Lidocaine 5 eCW3 % ine 5 % ([facility]) Aspirin 81 Aspir- active Aspir-Low 81 eCW3 MG Delayed Low 81 MG ([place] Release MG [place] Oral Tablet Health [Aspir-Low] [facility]) Aspir-Low 81 MG Metformin Metfor 1.0 active Metformin e CW3 hydrochlori min {tabl HCl 500 mg ( [place] de 500 MG HCl et} [place] Oral Tablet 500 mg [facility]) HCl 500 mg Aspir-Low UNK active Aspir-Low 81 eCW3 81 MG MG ([facility]) Diclofenac Voltar active Voltaren 1 % eCW3 Sodium 0.01 en 1 % ([place] MG/MG [place] Topical Gel Health [Voltaren] Care) Voltaren 1 % Fenofibrate Fenofi active Fenofibra te eCW3 145 MG Oral brate 145 MG ([facility] on Tablet 145 MG [facility]) Tamsulosin Tamsul active Tamsulosin eCW3 hydrochlori osin HCl 0.4 MG (H udson de 0.4 MG HCl [place] Oral 0.4 MG [facility]) Tamsulosin HCl 0.4 MG Acetaminoph Oxycod active Oxycodone -Ac eCW3 en 325 MG / one-Ac etaminophen ([place] Oxycodone etamin 5-325 MG [facility] MG 5-325 Care) Oral Tablet MG Oxycodone-A cetaminophe n 5-325 MG Acetaminoph Oxycod active Oxycodone -Ac eCW3 en 325 MG / one-Ac etaminophen ([place] Oxycodone etamin 5-325 MG [facility] de 5 MG 5-325 Care) Oral Tablet MG Oxycodone-A cetaminophe n 5-325 MG TL G-Fol OS UNK active TL G-Fol OS eCW3 500-1.1 MG 500-1.1 MG ([facility]) TL G-Fol OS UNK active TL G-Fol OS eCW3 500-1.1 MG 500-1.1 MG ([facility]) Finasteride Finast active Finasteri de eCW3 5 MG Oral eride 5 MG ([place] Tablet 5 MG [facility]) Lidocaine 5 Lidoca active Lidocaine 5 eCW3 % ine 5 % ([place] % [facility]) Amitriptyli Amitri active Amitripty daksha eCW3 [...] eride 5 MG ([place] Tablet 5 MG [place] [facility]) Tamsulosin Tamsul active Tamsulosin eCW3 [...] D eCW 3 (Ergocalcif (Ergocalcife (Gomez chris) 02602 rol) [id number] Ri alexandra UNIT UNIT Health Care) 24 [...] eCW 3 600 MG / a 600-200-300 ([facility] emtricitabi 600-20 MG [place] ne 200 MG / 0-300 Health Tenofovir MG Care) disoproxil fumarate 300 MG Oral Tablet [Atripla] Atripla 600-200-300 MG Vitamin D UNK active Vitamin D eCW 3 (Ergocalcif (Ergocalcife (Gomez chris) 65817 rol) 05353 Ri alexandra UNIT UNIT Health Care) K-Clive K-Clive active K-Clive Immune eCW 3 Immune Immune Professional ([facility] Metformin Metfor 1.0 active Metformin e CW3 hydrochlori min {tabl HCl 500 mg ( [place] de 500 MG HCl et} [place] Oral Tablet 500 mg [facility] Metformin Care) HCl 500 mg 24 HR [...] D eCW 3 (Ergocalcif (Ergocalcife (Gomez chris) 40383 rol) 80382 Ri alexandra UNIT UNIT Health Care) Acetaminoph Oxycod active Oxycodone -Ac eCW3 en 325 MG / one-Ac etaminophen ([place] Oxycodone etamin 5-325 MG Rive r Hydrochlori ophen Health de 5 MG 5-325 Care) Oral Tablet MG Oxycodone-A cetaminophe n 5-325 MG Finasteride Finast active Finasteri de eCW3 5 MG Oral eride 5 MG ([place] Tablet 5 MG [facility]) efavirenz Atripl active Atripla eCW 3 600 MG / a 600-200-300 ([facility] son emtricitabi 600-20 MG [place] ne 200 MG / 0-300 Health Tenofovir MG Care) disoproxil fumarate 300 MG Oral Tablet [Atripla] Atripla 600-200-300 MG Vitamin D UNK active Vitamin D eCW 3 (Ergocalcif (Ergocalcife (Gomez chris) 59982 rol) 56907 Ri alexandra UNIT UNIT Health Care) Ranitidine Raniti 1.0 active Ranitidine eCW3 150 MG Oral dine {caps HCl 150 MG ( [place] Capsule HCl ule_a [place] Ranitidine 150 MG t_bed Health HCl 150 MG time} Care) K-Clive K-Clive active K-Clive Immune eCW 3 Immune Immune Professional (Leif sue [facility]) potassium Potass active Potassium e CW3 [...] (1.62% AndroGel ) Pump 20.25 MG/ACT (1.62%) K-Clive K-Clive active K-Clive Immune eCW 3 Immune Immune Professional [facility] Insurance Providers Payer name Policy type Policy ID Covered Covered alliance party's Policy P ashley / Coverage alliance party ID relationship to Simon Inf ormation type simon SAMIA [id number] SP [id number] MEDICARE ADV PLAN MEDICAID [id number] SP [id number] MEDICAID [id number] SP [id number] SAMIA [id number] SP [id number] 400 MEDICARE ADV PLAN SAMIA [id number] SP [id number] 400 MEDICARE ADV PLAN NELY MEDICARE [id number] SP [id number] NELY MEDICARE [id number] SP [id number] SAMIA [id number] SP [id number] MEDICARE ADV PLAN MEDICARE [id number] SP [id number] U13 MEDICAID [id number] SP [id number] MEDICARE [id number] U13 Problems, Conditions, and Diagnoses Code Display Name Description Problem Effective Data Type Dates Source(s) H04.123 Dry eyes, bilateral Dry eyes, bilateral Problem 019 eCW3 12:00:00 AM ([facility]) G47.00 Insomnia, unspecified Insomnia, unspecified Problem 03/2019 eCW3 type type 12:00:00 AM ([facility]) E11.9 Diabetes mellitus Diabetes mellitus Problem 05/28/2019 eCW3 12:00:00 AM ([facility]) B20 HIV disease HIV disease Problem 11/19/2018 eCW3 12:00:00 AM ([facility]) I48.2 Chronic atrial Chronic atrial Problem 09/14/2017 eCW3 fibrillation fibrillation 12:00:00 AM ([facility]) I51.9 Heart disease Heart disease Problem 09/14/2017 eCW3 12:00:00 AM ([facility]) N28.1 Renal cyst Renal cyst Problem 09/05/2017 eCW3 12:00:00 AM ([facility]) N20.0 Calculus of kidney Calculus of kidney Problem 7 eCW3 12:00:00 AM ([facility]) R10.11 RUQ abdominal pain RUQ abdominal pain Problem 7 eCW3 12:00:00 AM ([facility]) G89.29 Chronic pain Chronic pain Problem 08/30/2017 eCW3 12:00:00 AM ([facility]) J32.9 Sinusitis Sinusitis Problem 05/16/2017 eCW3 12:00:00 AM ([facility]) H52.4 Presbyopia OU Presbyopia OU Problem 05/15/2017 eCW3 12:00:00 AM ([facility]) H16.223 Keratoconjunctivitis Keratoconjunctivitis Problem 05/11 eCW3 sicca of both eyes not sicca of both eyes not 1 2:00:00 AM ([place] specified as Sjogren's specified as [facility]) H25.13 Nuclear age-related Nuclear age-related Problem 017 eCW3 cataract, both eyes cataract, both eyes 12:00:0 0 AM ([facility]) G47.00 Insomnia Insomnia Problem 11/10/2016 eCW3 12:00:00 AM ([facility]) Surgeries/Procedures Procedure Description Date Indications Data Source(s) DEBRID[facility] NAIL [facility] 12:[facility] AM [facility]) PARING/CUTTING BENIGN 02/26/2019 eCW3 ( [facility] HYPERKERATOTIC LESION 2-4 12:00:00 AM [facility]) Results ID Date Data Source [id number] 08/06/2020 12:20:00 PM EDT [facility] Name Value Range Interpretation Description Data Sup porting Code Source(s) Document(s ) SARS [facility] coronavirus 2 RNA This lab was ordered by [facility] and reported by [facility]. ID Date Data Source [id number] 07/13/2020 12:29:00 PM EDT [facility] Name Value Range Interpretation Description Data Sup porting Code Source(s) Document(s ) SARS [facility] coronavirus 2 RNA This lab was ordered by [facility] and reported by [email or web address]. ID Date Data Source [id number] 05/29/2020 10:00:00 PM EDT [facility] Name Value Range Interpretation Code Description Data Raya rce(s) Supporting Document(s ) SARS-CoV-2 [facility] BY PCR This lab was ordered by JOSEP Castro and reported by [email or web address]. ID Date Data Source [id number] 05/05/2020 10:00:00 PM EDT [facility] Name Value Range Interpretation Code Description Data Raya rce(s) Supporting Document(s ) SARS-CoV-2 [facility] BY PCR This lab was ordered by JOSEP Castro and reported by [email or web address]. Procedure Social History Code Duration Value Status Description Data Source(s ) Smoking Unknown if ever completed Unknown if ever eCW3 ([facility] smoked smoked [facility]) Smoking Unknown if ever completed Unknown if ever eCW3 ([facility] smoked smoked [facility]) Smoking Unknown if ever completed Unknown if ever eCW3 ([facility] smoked smoked Health Care) Smoking Unknown if ever completed Unknown if ever eCW3 ([facility] smoked smoked [facility]) Smoking Unknown if ever completed Unknown if ever eCW3 ([facility] smoked smoked [facility] Care) Smoking Unknown if ever completed Unknown if ever Trino Johnson smoked smoked [facility] Vital Signs ID Date Data Source UNK Name Value Range Interpretation Code Description Data Source(s) Body temperature 97.5 [degF] 97.5 [degF] eCW3 ( [facility]) Heart rate 20 /min 20 /min eCW3 ([facility]) Body mass index 32.54 kg/m2 32.54 kg/m2 eCW3 (H udson (BMI) [Ratio] [facility]) Body weight 214 [lb_av] 214 [lb_av] eCW3 ([facility]) Body height 68 [in_i] 68 [in_i] eCW3 ([facility]) Diastolic blood 83 mm[Hg] 83 mm[Hg] eCW3 ([facility]) Systolic blood 115 mm[Hg] 115 mm[Hg] eCW3 ([facility]) Diastolic blood 75 mm[Hg] 75 mm[Hg] eCW3 ([facility]) Systolic blood 131 mm[Hg] 131 mm[Hg] eCW3 ([facility]) Body temperature 98.0 [degF] 98.0 [degF] eCW3 ( [facility]) Heart rate 20 /min 20 /min eCW3 ([facility]) Body mass index 32.38 kg/m2 32.38 kg/m2 eCW3 (H udson (BMI) [Ratio] [facility]) Body weight 213 [lb_av] 213 [lb_av] eCW3 ([facility]) Body height 68 [in_i] 68 [in_i] eCW3 ([facility]) Diastolic blood 92 mm[Hg] 92 mm[Hg] eCW3 ([facility]) Systolic blood 133 mm[Hg] 133 mm[Hg] eCW3 ([facility]) Body temperature 97.6 [degF] 97.6 [degF] eCW3 ( [facility]) Heart rate 20 /min 20 /min eCW3 ([facility]) Body mass index 32.69 kg/m2 32.69 kg/m2 eCW3 (H udson (BMI) [Ratio] [facility]) Body weight 215 [lb_av] 215 [lb_av] eCW3 ([facility]) Body height 68 [in_i] 68 [in_i] eCW3 ([facility]) Diastolic blood 66 mm[Hg] 66 mm[Hg] eCW3 ([facility]) Systolic blood 100 mm[Hg] 100 mm[Hg] eCW3 ([facility]) Body temperature 97.9 [degF] 97.9 [degF] eCW3 ( [facility]) Heart rate 20 /min 20 /min eCW3 ([facility]) Body mass index 32.84 kg/m2 32.84 kg/m2 eCW3 (H udson (BMI) [Ratio] [facility]) Body weight 216 [lb_av] 216 [lb_av] eCW3 ([facility]) Body height 68 [in_i] 68 [in_i] eCW3 ([facility]) Diastolic blood 58 mm[Hg] 58 mm[Hg] eCW3 ([facility]) Systolic blood 95 mm[Hg] 95 mm[Hg] eCW3 ([facility]) Body temperature 97.9 [degF] 97.9 [degF] eCW3 ( [facility]) Heart rate 20 /min 20 /min eCW3 ([facility]) Body mass index 32.84 kg/m2 32.84 kg/m2 eCW3 (H udson (BMI) [Ratio] [facility]) Body weight 216 [lb_av] 216 [lb_av] eCW3 ([facility]) Body height 68 [in_i] 68 [in_i] eCW3 ([facility]) Patient Treatment Plan of Care Planned Activity Planned Date Details Description Data Source (s) Artificial Tears 1-0.3 10/07/2019 12:00:00 eCW3 ([facility]) Artificial Tears 1-0.3 10/07/2019 12:00:00 eCW3 ([facility])
[2020-08-11] MEDS ORDERED: ceFAZolin SODIUM 1 GM VIAL IVPB ONE (13:10)
[2020-08-11] MEDS ORDERED: ceFAZolin SODIUM 1 GM VIAL ONE (13:14)
[2020-08-11] MEDS ORDERED: LIDOCAINE HCL/PF 2% SDV 5ML VIAL ONE (13:14)
--- NOTE | 2020-08-11 13:14 | OP ---
Operative Note - Note: Operative Date: 08/11/20 Pre-Operative Diagnosis: rt. renal stones Operation: rt. eswl Post-Operative Diagnosis: Same as Pre-op Surgeon: Kym Toney Anesthesia: General Specimens Removed: none Estimated Blood Loss (mls): 0 Instrument used (Debridements only): 0 Drains & Tubes with Location: 0 Drains, Volume Out (mls): 0 Blood Volume Replaced (mls): 0 Fluid Volume Replaced (mls): 0 Operative Report Dictated: Yes
--- NOTE | 2020-08-11 13:19 | CONS ---
DATE OF CONSULTATION: DATE OF DICTATION: 08/11/2020 HISTORY OF PRESENT ILLNESS: The patient is a 70-year-old male with history of bilateral flank pain more on the right than the left. Also, complains of frequency, nocturia, and dysuria. He denies diabetes or hypertension. Ultrasound of the kidney revealed multiple bilateral renal stones. There was no hydronephrosis. He is presently on insulin as well as Flomax. PHYSICAL EXAMINATION: Abdomen: Soft abdomen. There is bilateral CVA tenderness. Prostate is 2+, smooth and nontender. LABORATORY DATA: Urinalysis revealed heme-positive blood. BUN and creatinine are 21/1.1. IMPRESSION: Bilateral hydronephrosis with bilateral nephrolithiasis right greater than left. PLAN: Right extracorporeal shockwave lithotripsy. Rebecca [id number]
--- NOTE | 2020-08-11 15:18 | OP ---
DATE OF OPERATION: 08/11/2020 PREOPERATIVE DIAGNOSIS: Right renal stones. POSTOPERATIVE DIAGNOSIS: Right renal stones. OPERATIVE PROCEDURE: Right extracorporeal shock wave lithotripsy. ANESTHESIA: General. DESCRIPTION OF PROCEDURE: Under above-stated anesthesia, patient is prepped and draped in the usual sterile manner. He is placed in the supine position. After proper measurements and localization of the stone via x-ray and ultrasound, the patient received 2500 shocks at an energy rate of 20 to the stones. He had a benign and uneventful postoperative course. He tolerated the procedure well. He returned to the recovery room in good condition. Rebecca [id number]
--- NOTE | 2020-08-11 15:44 | OP ---
DATE OF OPERATION: 08/11/2020 PREOPERATIVE DIAGNOSIS: Right renal colic, right renal stone, hematuria, recurrent urinary tract infections and micturition disorder. POSTOPERATIVE DIAGNOSIS: Right renal colic, right renal stone, hematuria, recurrent urinary tract infections and micturition disorder with right renal stone. PROCEDURE: Right extracorporeal shock wave lithotripsy. ANESTHESIA: General. PROCEDURE IN DETAIL: The patient underwent both fluoroscopy and ultrasound for localization of multiple stones in the right kidney. The lower pole revealed an 8-mm stone at the level of the ureteropelvic junction. Therefore, the area was localized. The patient was given 2500 shocks at a power of 20. Change was seen. The stones in the upper pole were unable to be treated at this time. Afterwards the patient tolerated the procedure well. He returned to the recovery room in good condition. Rebecca [id number]
[2020-08-11 16:12] VITALS: PULSE 72
[2020-08-11 16:14] VITALS: TEMP 97.1
[2020-08-11 17:22] VITALS: BP 137/87
== END 2020-08-11 14:20 | disposition home or self-care (01) ==
LOC: JASU-SURG 04:27
PROVIDERS: ATTEND Urology
PROC: 0TF3XZZ Fragmentation in Right Kidney Pelvis, External Approach (ICD-10-PCS; principal; 2020-08-11 12:35)
DX: N20.0 Calculus of kidney (principal); E11.9 Type 2 diabetes mellitus without complications
CPT/HCPCS: 82962

== ENCOUNTER 2022-07-16 01:48 | Inpatient (IN) | payer MEDICARE, OTHER ==
[2022-07-16] MEDS ORDERED: SODIUM CHLORIDE 0.9% 500 ML INFUS.BAG IV ONE (02:42)
[2022-07-16 04:17] LABS: BASO % 1.2 % (0-2.0); EOS % 4.1 % (0-4.5); HEMATOCRIT 39.6 % (35.4-49); HEMOGLOBIN 13.8 GM/dL (11.7-16.9); LYMPH % 22.6 % (8-40); MCH 31.5 pg (25.7-33.7); MCHC 34.9 g/dl (32.0-35.9); MEAN CELL VOLUME 90.4 fl (80-96); MEAN PLT VOLUME 8.5 fl (7.5-11.1); MONO % 7.4 % (3.8-10.2); NEUT % 64.7 % (42.8-82.8); PLATELET COUNT 209 10^3/uL (134-434); RBC 4.38 M/mm3 (4.00-5.60); RDW 13.1 % (11.9-15.9); WHITE BLOOD COUNT 7.1 K/mm3 (4.0-10.0)
[2022-07-16 04:20] LABS: VENOUS BASE EXCESS -1.4 mmol/L (-2-2); VENOUS O2 SATURATION 15.1 % (70-80); VENOUS PCO2 61.4 mmHg (38-52); VENOUS PH 7.26 (7.310-7.410)
[2022-07-16 04:39] LABS: CHLORIDE 97 mmol/L (98-107); SODIUM 135 mmol/L (136-145)
[2022-07-16 04:41] LABS: CALCIUM 8.8 mg/dL (8.5-10.1)
[2022-07-16 04:42] LABS: ANION GAP 9 MMOL/L (8-16); BLOOD UREA NITROGEN 18.6 mg/dL (7-18); CO2 29 mmol/L (21-32)
[2022-07-16 04:44] LABS: CREATININE 1.7 mg/dL (0.55-1.3)
[2022-07-16 04:45] LABS: SGOT/AST 13 U/L (15-37); SGPT/ALT 24 U/L (13-61)
[2022-07-16 04:46] LABS: BILIRUBIN,TOTAL 1.6 mg/dL (0.2-1); TOT PROT 7.7 g/dl (6.4-8.2)
[2022-07-16 04:47] LABS: ALK PHOS 83 U/L (45-117)
[2022-07-16 04:53] LABS: GLUCOSE,RANDOM 416 mg/dL (74-106)
[2022-07-16 05:01] LABS: PH,URINE 5.5 (5.0-8.0); URINE APPEARANCE CLEAR; URINE BILIRUBIN NEGATIVE (NEGATIVE); URINE COLOR YELLOW; URINE GLUCOSE (UA) 3+ (NEGATIVE); URINE KETONE NEGATIVE (NEGATIVE); URINE LEUK ESTERASE NEGATIVE (NEGATIVE); URINE NITRITE NEGATIVE (NEGATIVE); URINE PROTEIN NEGATIVE (NEGATIVE); URINE UROBILINOGEN 0.2 mg/dL (0.2-1.0)
[2022-07-16] MEDS ORDERED: GABAPENTIN 300 MG CAPSULE PO SCH (05:15)
[2022-07-16] MEDS ORDERED: SODIUM CHLORIDE 0.45% 1,000 ML IV SCH (05:15)
[2022-07-16 05:29] VITALS: RESP 18
[2022-07-16 06:25] LABS: EOS % 4.6 % (0-4.5); HEMATOCRIT 37.1 % (35.4-49); HEMOGLOBIN 12.9 GM/dL (11.7-16.9); LYMPH % 30.5 % (8-40); MCH 31.4 pg (25.7-33.7); MCHC 34.7 g/dl (32.0-35.9); MEAN CELL VOLUME 90.3 fl (80-96); MEAN PLT VOLUME 8.6 fl (7.5-11.1); MONO % 8.7 % (3.8-10.2); NEUT % 55.2 % (42.8-82.8); PLATELET COUNT 180 10^3/uL (134-434); RBC 4.11 M/mm3 (4.00-5.60); WHITE BLOOD COUNT 6.7 K/mm3 (4.0-10.0)
[2022-07-16 06:47] LABS: CALCIUM 8.5 mg/dL (8.5-10.1)
[2022-07-16 06:48] LABS: ALBUMIN 3.5 g/dl (3.4-5.0); BLOOD UREA NITROGEN 18.1 mg/dL (7-18)
[2022-07-16 06:51] LABS: CREATININE 1.4 mg/dL (0.55-1.3)
[2022-07-16 06:52] LABS: BILIRUBIN,TOTAL 1.4 mg/dL (0.2-1); TOT PROT 6.7 g/dl (6.4-8.2)
[2022-07-16] MEDS: INSULIN SLIDING SCALE (NOVOLOG) 1 VIAL SQ SCH ×4 (08:39→21:47)
[2022-07-16] MEDS: TAMSULOSIN HCL 0.4 MG CAP PO SCH (09:46)
[2022-07-16] MEDS: AMIODARONE HCL 200 MG TABLET PO SCH (09:47)
[2022-07-16] MEDS: DOCUSATE SODIUM 100 MG CAPSULE (FP) PO SCH (09:47)
[2022-07-16] MEDS: HEPARIN NA (PORCINE) 5,000 UNITS/ML 1ML VIAL SQ SCH ×2 (09:47→21:47)
[2022-07-16] MEDS: ASPIRIN COATED 81 MG TABLET.EC PO SCH (09:47)
[2022-07-16] MEDS: BICTEGRAV/EMTRICIT/TENOFOV (BIKTARVY) 50-200-25 MG TABLET PO SCH (12:43)
[2022-07-16] MEDS: GABAPENTIN 300 MG CAPSULE PO SCH ×2 (13:37→21:46)
[2022-07-16] MEDS ORDERED: SODIUM CHLORIDE 1,000 ML IV ONE (14:15)
[2022-07-16] MEDS: SODIUM CHLORIDE 1,000 ML IV SCH (16:00)
[2022-07-16] MEDS: ATORVASTATIN CA 10 MG TABLET (FP) PO SCH (21:46)
[2022-07-16] MEDS: INSULIN (LEVEMIR) 100 UNITS/ML UNITS SQ SCH (21:47)
[2022-07-17] MEDS: SODIUM CHLORIDE 1,000 ML IV SCH ×2 (05:57→17:36)
[2022-07-17] MEDS: GABAPENTIN 300 MG CAPSULE PO SCH ×3 (06:04→21:50)
[2022-07-17] MEDS: INSULIN SLIDING SCALE (NOVOLOG) 1 VIAL SQ SCH ×4 (06:09→21:51)
[2022-07-17] MEDS: HEPARIN NA (PORCINE) 5,000 UNITS/ML 1ML VIAL SQ SCH ×2 (10:07→21:50)
[2022-07-17] MEDS: INSULIN (LEVEMIR) 100 UNITS/ML UNITS SQ SCH ×2 (10:08→21:50)
[2022-07-17] MEDS: DOCUSATE SODIUM 100 MG CAPSULE (FP) PO SCH (10:08)
[2022-07-17] MEDS: TAMSULOSIN HCL 0.4 MG CAP PO SCH (10:08)
[2022-07-17] MEDS: ASPIRIN COATED 81 MG TABLET.EC PO SCH (10:08)
[2022-07-17] MEDS: BICTEGRAV/EMTRICIT/TENOFOV (BIKTARVY) 50-200-25 MG TABLET PO SCH (10:09)
[2022-07-17] MEDS: AMIODARONE HCL 200 MG TABLET PO SCH (10:09)
[2022-07-17 14:20] LABS: CALCIUM 8.5 mg/dL (8.5-10.1)
[2022-07-17 15:07] VITALS: BMI 25.1
[2022-07-17 16:31] LABS: BASO % 2.6 % (0-2.0); HEMATOCRIT 35.7 % (35.4-49); HEMOGLOBIN 12.3 GM/dL (11.7-16.9); LYMPH % 27.1 % (8-40); MCHC 34.6 g/dl (32.0-35.9); MEAN CELL VOLUME 89.6 fl (80-96); MEAN PLT VOLUME 9.2 fl (7.5-11.1); MONO % 6.4 % (3.8-10.2); NEUT % 58.9 % (42.8-82.8); PLATELET COUNT 192 10^3/uL (134-434); RBC 3.98 M/mm3 (4.00-5.60); RDW 12.8 % (11.9-15.9); WHITE BLOOD COUNT 5.9 K/mm3 (4.0-10.0)
[2022-07-17] MEDS: ATORVASTATIN CA 10 MG TABLET (FP) PO SCH (21:50)
[2022-07-17] MEDS ORDERED: POLYETHYLENE GLYCOL (HEALTHYLAX) 3350 17 GM PACKET PO SCH (22:00)
[2022-07-18] MEDS: GABAPENTIN 300 MG CAPSULE PO SCH ×3 (06:06→21:09)
[2022-07-18] MEDS: INSULIN SLIDING SCALE (NOVOLOG) 1 VIAL SQ SCH ×4 (07:27→21:26)
[2022-07-18] MEDS: INSULIN (LEVEMIR) 100 UNITS/ML UNITS SQ SCH ×2 (07:28→21:17)
[2022-07-18] MEDS: HEPARIN NA (PORCINE) 5,000 UNITS/ML 1ML VIAL SQ SCH ×2 (10:16→21:09)
[2022-07-18] MEDS: AMIODARONE HCL 200 MG TABLET PO SCH (10:16)
[2022-07-18] MEDS: ASPIRIN COATED 81 MG TABLET.EC PO SCH (10:16)
[2022-07-18] MEDS: TAMSULOSIN HCL 0.4 MG CAP PO SCH (10:16)
[2022-07-18] MEDS: DOCUSATE SODIUM 100 MG CAPSULE (FP) PO SCH (10:16)
[2022-07-18] MEDS: BICTEGRAV/EMTRICIT/TENOFOV (BIKTARVY) 50-200-25 MG TABLET PO SCH (10:18)
[2022-07-18 11:40] LABS: ALBUMIN 3.3 g/dl (3.4-5.0); BLOOD UREA NITROGEN 17.4 mg/dL (7-18)
[2022-07-18 11:43] LABS: CREATININE 1.1 mg/dL (0.55-1.3)
[2022-07-18 11:44] LABS: TOT PROT 6.4 g/dl (6.4-8.2)
[2022-07-18 11:45] LABS: BILIRUBIN,TOTAL 1.1 mg/dL (0.2-1)
[2022-07-18] MEDS: SODIUM CHLORIDE 1,000 ML IV SCH (16:22)
[2022-07-18] MEDS ORDERED: ACETAMINOPHEN 325 MG TABLET (FP) PO ONE (20:15)
[2022-07-18] MEDS: ATORVASTATIN CA 10 MG TABLET (FP) PO SCH (21:09)
[2022-07-19] MEDS: GABAPENTIN 300 MG CAPSULE PO SCH ×3 (05:45→21:41)
[2022-07-19] MEDS: INSULIN SLIDING SCALE (NOVOLOG) 1 VIAL SQ SCH ×4 (06:42→21:46)
[2022-07-19] MEDS: INSULIN (LEVEMIR) 100 UNITS/ML UNITS SQ SCH ×2 (06:45→21:47)
[2022-07-19 08:56] LABS: BASO % 1.3 % (0-2.0); EOS % 2.2 % (0-4.5); HEMATOCRIT 39.2 % (35.4-49); HEMOGLOBIN 13.7 GM/dL (11.7-16.9); LYMPH % 35.6 % (8-40); MCH 30.9 pg (25.7-33.7); MCHC 34.8 g/dl (32.0-35.9); MEAN CELL VOLUME 88.8 fl (80-96); MEAN PLT VOLUME 8.9 fl (7.5-11.1); MONO % 6.6 % (3.8-10.2); NEUT % 54.3 % (42.8-82.8); PLATELET COUNT 226 10^3/uL (134-434); RBC 4.41 M/mm3 (4.00-5.60); RDW 12.7 % (11.9-15.9); WHITE BLOOD COUNT 6.7 K/mm3 (4.0-10.0)
[2022-07-19] MEDS: DOCUSATE SODIUM 100 MG CAPSULE (FP) PO SCH (09:09)
[2022-07-19] MEDS: BICTEGRAV/EMTRICIT/TENOFOV (BIKTARVY) 50-200-25 MG TABLET PO SCH (09:09)
[2022-07-19] MEDS: ASPIRIN COATED 81 MG TABLET.EC PO SCH (09:09)
[2022-07-19] MEDS: HEPARIN NA (PORCINE) 5,000 UNITS/ML 1ML VIAL SQ SCH ×2 (09:09→21:41)
[2022-07-19] MEDS: TAMSULOSIN HCL 0.4 MG CAP PO SCH (09:09)
[2022-07-19] MEDS: AMIODARONE HCL 200 MG TABLET PO SCH (09:09)
[2022-07-19 09:22] LABS: CALCIUM 8.7 mg/dL (8.5-10.1)
[2022-07-19 09:23] LABS: ALBUMIN 3.3 g/dl (3.4-5.0); BLOOD UREA NITROGEN 16.8 mg/dL (7-18)
[2022-07-19 09:27] LABS: BILIRUBIN,TOTAL 0.9 mg/dL (0.2-1); TOT PROT 6.5 g/dl (6.4-8.2)
[2022-07-19] MEDS: SODIUM CHLORIDE 1,000 ML IV SCH (17:34)
[2022-07-19] MEDS: ATORVASTATIN CA 10 MG TABLET (FP) PO SCH (21:41)
[2022-07-20] MEDS: ACETAMINOPHEN 325 MG TABLET (FP) PO PRN ×2 (03:05→09:43)
[2022-07-20] MEDS: GABAPENTIN 300 MG CAPSULE PO SCH (06:20)
[2022-07-20] MEDS: INSULIN SLIDING SCALE (NOVOLOG) 1 VIAL SQ SCH ×2 (06:27→11:19)
[2022-07-20] MEDS: INSULIN (LEVEMIR) 100 UNITS/ML UNITS SQ SCH (06:27)
[2022-07-20] MEDS: AMIODARONE HCL 200 MG TABLET PO SCH (09:44)
[2022-07-20] MEDS: TAMSULOSIN HCL 0.4 MG CAP PO SCH (09:44)
[2022-07-20] MEDS: ASPIRIN COATED 81 MG TABLET.EC PO SCH (09:44)
[2022-07-20] MEDS: DOCUSATE SODIUM 100 MG CAPSULE (FP) PO SCH (09:45)
[2022-07-20] MEDS: HEPARIN NA (PORCINE) 5,000 UNITS/ML 1ML VIAL SQ SCH (09:45)
[2022-07-20] MEDS: BICTEGRAV/EMTRICIT/TENOFOV (BIKTARVY) 50-200-25 MG TABLET PO SCH (09:46)
[2022-07-20 14:22] VITALS: BP 133/81; PULSE 81; TEMP 97.3
== END 2022-07-20 13:48 | disposition home health service (06) | DRG 683 ==
LOC: JER 01:48 → JERBED 04:58 → J5S 07:02
PROVIDERS: ADMIT Internal Medicine; ATTEND Internal Medicine
DX: N17.9 Acute kidney failure, unspecified (principal); B20 Human immunodeficiency virus [HIV] disease; E11.65 Type 2 diabetes mellitus with hyperglycemia; I10 Essential (primary) hypertension; I45.6 Pre-excitation syndrome; R63.4 Abnormal weight loss; K21.9 Gastro-esophageal reflux disease without esophagitis; N40.0 Benign prostatic hyperplasia without lower urinary tract symptoms; K76.0 Fatty (change of) liver, not elsewhere classified; E86.0 Dehydration
CPT/HCPCS: 36415; 71045-TC-FY; 74176-TC; 76700-TC; 80048; 80053; 80061; 81003; 82010; 82248; 82570; 82728; 82803; 82962; 83036; 83540; 83550; 84156; 84300; 84439; 84443; 84484; 85025; 86359; 86360; 87040; 87086; 87536; 93005; 93010; 93306-TC; 99285-25; C9803-CS; J1644; U0003; U0005

== ENCOUNTER 2023-06-10 20:31 | Inpatient (IN) | payer MEDICARE, OTHER ==
[2023-06-10 20:41] VITALS: RESP 18
[2023-06-10] MEDS ORDERED: LACTATED RINGERS SOLUTION 1,000 ML/1,000 ML INFUS.BAG IV STA (21:20)
[2023-06-10] MEDS ORDERED: INSULIN (NOVOLOG) ASPART 100 UNITS/ML 10ML VIAL SQ ONE (21:21)
[2023-06-10 21:38] LABS: VENOUS BASE EXCESS -1.4 mmol/L (-2-2); VENOUS O2 SATURATION 35.4 % (70-80); VENOUS PCO2 55.1 mmHg (38-52); VENOUS PH 7.294 (7.310-7.410)
[2023-06-10 22:05] LABS: CHLORIDE 96 mmol/L (98-107); POTASSIUM 4.9 mmol/L (3.5-5.1); SODIUM 133 mmol/L (136-145)
[2023-06-10 22:06] LABS: ANION GAP 7 MMOL/L (8-16); CALCIUM 9.2 mg/dL (8.5-10.1); CO2 30 mmol/L (21-32)
[2023-06-10 22:07] LABS: BLOOD UREA NITROGEN 40.9 mg/dL (7-18)
[2023-06-10 22:09] LABS: CREATININE 1.8 mg/dL (0.55-1.3)
[2023-06-10 22:15] LABS: HEMATOCRIT 40.9 % (35.4-49); HEMOGLOBIN 14.2 GM/dL (11.7-16.9); MCH 31.1 pg (25.7-33.7); MCHC 34.6 g/dl (32.0-35.9); MEAN CELL VOLUME 89.9 fl (80-96); MEAN PLT VOLUME 8.3 fl (7.5-11.1); PLATELET COUNT 226 10^3/uL (134-434); RBC 4.55 M/mm3 (4.00-5.60); RDW 12.8 % (11.9-15.9); WHITE BLOOD COUNT 8.6 K/mm3 (4.0-10.0)
[2023-06-10 22:39] LABS: GLUCOSE,RANDOM 570 mg/dL (74-106)
[2023-06-10] MEDS ORDERED: BICTEGRAV/EMTRICIT/TENOFOV (BIKTARVY) 50-200-25 MG TABLET PO ONE (22:41)
[2023-06-10] MEDS ORDERED: LACTATED RINGERS SOLUTION 1,000 ML IV STA (22:49)
[2023-06-11 01:17] LABS: PH,URINE 5.5 (5.0-8.0); URINE APPEARANCE CLEAR; URINE BILIRUBIN NEGATIVE (NEGATIVE); URINE COLOR YELLOW; URINE GLUCOSE (UA) 3+ (NEGATIVE); URINE KETONE NEGATIVE (NEGATIVE); URINE LEUK ESTERASE NEGATIVE (NEGATIVE); URINE NITRITE NEGATIVE (NEGATIVE); URINE PROTEIN NEGATIVE (NEGATIVE); URINE UROBILINOGEN 0.2 mg/dL (0.2-1.0)
[2023-06-11 04:45] LABS: CREATININE, URINE RANDOM 27.5 mg/dL (30-150)
[2023-06-11] MEDS: TAMSULOSIN HCL 0.4 MG CAP PO SCH (09:13)
[2023-06-11] MEDS: GABAPENTIN 300 MG CAPSULE PO SCH ×3 (09:13→22:10)
[2023-06-11] MEDS: ENOXAPARIN NA (PORCINE) 40 MG/0.4 ML DISP.SYRIN SQ SCH (09:14)
[2023-06-11] MEDS: ASPIRIN COATED 81 MG TABLET.EC PO SCH (09:14)
[2023-06-11] MEDS ORDERED: AMIODARONE HCL 200 MG TABLET PO SCH (10:00)
[2023-06-11 10:11] VITALS: BMI 24.0
[2023-06-11] MEDS: INSULIN SLIDING SCALE (NOVOLOG) 1 VIAL SQ SCH ×3 (11:10→22:11)
[2023-06-11] MEDS: BICTEGRAV/EMTRICIT/TENOFOV (BIKTARVY) 50-200-25 MG TABLET PO SCH (11:19)
[2023-06-11] MEDS: AMIODARONE HCL 200 MG TABLET PO SCH (11:19)
[2023-06-11] MEDS ORDERED: INSULIN (NOVOLOG) ASPART 100 UNITS/ML 10ML VIAL ONE (17:09)
[2023-06-11] MEDS ORDERED: SODIUM CHLORIDE 0.45% 1,000 ML IV SCH (21:45)
[2023-06-11] MEDS ORDERED: BACLOFEN 10 MG TABLET (FP) PO SCH (22:00)
[2023-06-11] MEDS ORDERED: ATORVASTATIN CA 10 MG TABLET (FP) PO SCH (22:00)
[2023-06-12] MEDS: GABAPENTIN 300 MG CAPSULE PO SCH ×2 (05:51→13:11)
[2023-06-12] MEDS: INSULIN SLIDING SCALE (NOVOLOG) 1 VIAL SQ SCH ×3 (06:01→16:52)
[2023-06-12] MEDS: TAMSULOSIN HCL 0.4 MG CAP PO SCH (07:44)
[2023-06-12 08:46] VITALS: BP 119/70; PULSE 66; TEMP 98.4
[2023-06-12] MEDS: ASPIRIN COATED 81 MG TABLET.EC PO SCH (09:05)
[2023-06-12] MEDS: ENOXAPARIN NA (PORCINE) 40 MG/0.4 ML DISP.SYRIN SQ SCH (09:05)
[2023-06-12] MEDS: BICTEGRAV/EMTRICIT/TENOFOV (BIKTARVY) 50-200-25 MG TABLET PO SCH (09:06)
[2023-06-12] MEDS: AMIODARONE HCL 200 MG TABLET PO SCH (09:06)
[2023-06-12] MEDS ORDERED: INSULIN (NOVOLOG) ASPART 100 UNITS/ML 10ML VIAL ONE (10:57)
== END 2023-06-12 17:42 | disposition home or self-care (01) | DRG 638 ==
LOC: JER 20:31 → JERBED 22:36 → J6S 06-11 08:47
PROVIDERS: ADMIT Internal Medicine; ATTEND Internal Medicine
DX: E11.65 Type 2 diabetes mellitus with hyperglycemia (principal); B20 Human immunodeficiency virus [HIV] disease; N17.9 Acute kidney failure, unspecified; I10 Essential (primary) hypertension; K76.0 Fatty (change of) liver, not elsewhere classified; N40.0 Benign prostatic hyperplasia without lower urinary tract symptoms; E78.00 Pure hypercholesterolemia, unspecified; E86.0 Dehydration; K21.9 Gastro-esophageal reflux disease without esophagitis
CPT/HCPCS: 36415; 71046-TC-FY; 80048; 81003; 82010; 82570; 82803; 82962; 83935; 84156; 85027; 93005; 93010; 99285-25; J0475

== ENCOUNTER 2023-09-16 06:56 | Inpatient (IN) | payer MEDICARE, OTHER ==
[2023-09-16 07:04] VITALS: BMI 24.4
[2023-09-16] MEDS ORDERED: SODIUM CHLORIDE 0.9% 500 ML INFUS.BAG IV ONE (07:42)
[2023-09-16 08:09] LABS: VENOUS BASE EXCESS -1.9 mmol/L (-2-2); VENOUS O2 SATURATION 72.4 % (70-80); VENOUS PCO2 48.3 mmHg (38-52); VENOUS PH 7.325 (7.310-7.410)
[2023-09-16 08:28] LABS: BASO % 0.6 % (0-2.0); EOS % 0.7 % (0-4.5); HEMATOCRIT 36.8 % (35.4-49); HEMOGLOBIN 13.1 GM/dL (11.7-16.9); LYMPH % 15.4 % (8-40); MCH 31.1 pg (25.7-33.7); MCHC 35.7 g/dl (32.0-35.9); MEAN CELL VOLUME 87.2 fl (80-96); MEAN PLT VOLUME 8.1 fl (7.5-11.1); MONO % 6.1 % (3.8-10.2); NEUT % 77.2 % (42.8-82.8); PLATELET COUNT 246 10^3/uL (134-434); RBC 4.22 M/mm3 (4.00-5.60); RDW 13.5 % (11.9-15.9); WHITE BLOOD COUNT 9.3 K/mm3 (4.0-10.0)
[2023-09-16 08:30] LABS: CHLORIDE 94 mmol/L (98-107); POTASSIUM 4.4 mmol/L (3.5-5.1); SODIUM 130 mmol/L (136-145)
[2023-09-16 08:32] LABS: CALCIUM 8.9 mg/dL (8.5-10.1)
[2023-09-16 08:33] LABS: ALBUMIN 3.3 g/dl (3.4-5.0); ANION GAP 8 mmol/L (4-13); BLOOD UREA NITROGEN 32.8 mg/dL (7-18); CO2 28 mmol/L (21-32); LIPASE 73 U/L (73-393)
[2023-09-16] MEDS ORDERED: LIDOCAINE 5% TOPICAL PATCH TP ONE (08:35)
[2023-09-16 08:36] LABS: CREATININE 1.8 mg/dL (0.55-1.3); SGOT/AST 11 U/L (15-37); SGPT/ALT 19 U/L (13-61)
[2023-09-16 08:37] LABS: BILIRUBIN,TOTAL 1.3 mg/dL (0.2-1)
[2023-09-16 08:39] LABS: ALK PHOS 87 U/L (45-117)
[2023-09-16 08:48] LABS: GLUCOSE,RANDOM 420 mg/dL (74-106)
[2023-09-16] MEDS ORDERED: LACTATED RINGERS SOLUTION 1000 ML INFUS.BAG IV ONE (09:02)
[2023-09-16] MEDS ORDERED: LIDOCAINE 4% PATCH TP ONE (09:03)
[2023-09-16] MEDS ORDERED: ONDANSETRON 4 MG/2 ML VIAL IVPB ONE (09:27)
[2023-09-16 09:52] LABS: EPI CELLS 1 /uL (0-25.1); HYALINE CASTS 0 /uL (0-3.1); PH,URINE 5.5 (5.0-8.0); URINE APPEARANCE CLEAR; URINE BACTERIA 0 /uL (0-1359); URINE BILIRUBIN NEGATIVE (NEGATIVE); URINE COLOR YELLOW; URINE GLUCOSE (UA) 3+ (NEGATIVE); URINE KETONE TRACE (NEGATIVE); URINE LEUK ESTERASE NEGATIVE (NEGATIVE); URINE NITRITE NEGATIVE (NEGATIVE); URINE PROTEIN NEGATIVE (NEGATIVE); URINE RBC 3 /uL (0-23.9); URINE UROBILINOGEN 0.2 mg/dL (0.2-1.0); URINE WBC 4 /uL (0-25.8)
[2023-09-16] MEDS ORDERED: INSULIN REGULAR HUMAN 100 UNITS/ML *VIAL SQ ONE (13:08)
[2023-09-16] MEDS ORDERED: LIDOCAINE PATCH REMOVAL MC ONE (22:00)
[2023-09-16] MEDS ORDERED: GABAPENTIN 300 MG CAPSULE ONE (23:15)
[2023-09-16] MEDS: GABAPENTIN 300 MG CAPSULE PO SCH (23:24)
[2023-09-16] MEDS: SODIUM CHLORIDE 0.45% 1,000 ML IV SCH (23:24)
[2023-09-17] MEDS ORDERED: GABAPENTIN 300 MG CAPSULE ONE (06:11)
[2023-09-17] MEDS: GABAPENTIN 300 MG CAPSULE PO SCH ×3 (06:14→22:58)
[2023-09-17 07:17] LABS: BASO % 0.8 % (0-2.0); HEMATOCRIT 37.2 % (35.4-49); HEMOGLOBIN 12.7 GM/dL (11.7-16.9); LYMPH % 27.8 % (8-40); MCH 30.3 pg (25.7-33.7); MCHC 34.1 g/dl (32.0-35.9); MEAN CELL VOLUME 88.8 fl (80-96); MEAN PLT VOLUME 8.6 fl (7.5-11.1); MONO % 6.6 % (3.8-10.2); NEUT % 63.8 % (42.8-82.8); PLATELET COUNT 248 10^3/uL (134-434); RBC 4.19 M/mm3 (4.00-5.60); RDW 13.5 % (11.9-15.9); WHITE BLOOD COUNT 7.3 K/mm3 (4.0-10.0)
[2023-09-17 07:22] LABS: POTASSIUM 3.6 mmol/L (3.5-5.1)
[2023-09-17 07:30] LABS: CALCIUM 8.2 mg/dL (8.5-10.1)
[2023-09-17 07:31] LABS: BLOOD UREA NITROGEN 20.8 mg/dL (7-18)
[2023-09-17 07:34] LABS: CREATININE 1.1 mg/dL (0.55-1.3)
[2023-09-17 07:35] LABS: BILIRUBIN,TOTAL 1.2 mg/dL (0.2-1); TOT PROT 6.3 g/dl (6.4-8.2)
[2023-09-17] MEDS: INSULIN SLIDING SCALE (NOVOLOG) 1 VIAL SQ SCH ×4 (07:41→22:58)
[2023-09-17] MEDS: TAMSULOSIN HCL 0.4 MG CAP PO SCH (08:54)
[2023-09-17] MEDS: ASPIRIN COATED 81 MG TABLET.EC PO SCH (09:00)
[2023-09-17] MEDS: BICTEGRAV/EMTRICIT/TENOFOV (BIKTARVY) 50-200-25 MG TABLET PO SCH (09:00)
[2023-09-17] MEDS: DOCUSATE SODIUM 100 MG CAPSULE (FP) PO SCH (09:00)
[2023-09-17] MEDS: AMIODARONE HCL 100 MG TABLET PO SCH (09:00)
[2023-09-17] MEDS: POLYETHYLENE GLYCOL (HEALTHYLAX) 3350 17 GM PACKET PO SCH (09:00)
[2023-09-17] MEDS: ENOXAPARIN NA (PORCINE) 40 MG/0.4 ML DISP.SYRIN SQ SCH (09:01)
[2023-09-17] MEDS ORDERED: ATORVASTATIN CA 10 MG TABLET (FP) PO SCH (22:00)
[2023-09-17] MEDS ORDERED: INSULIN (LEVEMIR) 100 UNITS/ML UNITS SQ SCH (22:00)
[2023-09-17] MEDS: SODIUM CHLORIDE 0.45% 1,000 ML IV SCH (23:35)
[2023-09-18 00:07] VITALS: RESP 18
[2023-09-18] MEDS: GABAPENTIN 300 MG CAPSULE PO SCH ×2 (06:20→15:00)
[2023-09-18 06:23] VITALS: PULSE 62
[2023-09-18] MEDS ORDERED: INSULIN (LEVEMIR) 100 UNITS/ML UNITS SQ SCH (07:00)
[2023-09-18] MEDS ORDERED: ASPIRIN COATED 81 MG TABLET.EC ONE (08:15)
[2023-09-18] MEDS ORDERED: AMIODARONE HCL 200 MG TABLET ONE (08:15)
[2023-09-18] MEDS ORDERED: POLYETHYLENE GLYCOL (HEALTHYLAX) 3350 17 GM PACKET ONE (08:15)
[2023-09-18] MEDS ORDERED: TAMSULOSIN HCL 0.4 MG CAP ONE (08:16)
[2023-09-18] MEDS ORDERED: DOCUSATE SODIUM 100 MG CAPSULE (FP) PO ONE (08:16)
[2023-09-18] MEDS ORDERED: ENOXAPARIN NA (PORCINE) 40 MG/0.4 ML DISP.SYRIN SQ ONE (08:16)
[2023-09-18] MEDS: INSULIN (NOVOLOG) ASPART 100 UNITS/ML 10ML VIAL SQ SCH ×2 (08:19→11:23)
[2023-09-18] MEDS: INSULIN SLIDING SCALE (NOVOLOG) 1 VIAL SQ SCH ×2 (08:20→11:23)
[2023-09-18] MEDS: TAMSULOSIN HCL 0.4 MG CAP PO SCH (08:21)
[2023-09-18] MEDS: BICTEGRAV/EMTRICIT/TENOFOV (BIKTARVY) 50-200-25 MG TABLET PO SCH (09:12)
[2023-09-18] MEDS: ASPIRIN COATED 81 MG TABLET.EC PO SCH (09:12)
[2023-09-18] MEDS: DOCUSATE SODIUM 100 MG CAPSULE (FP) PO SCH (09:12)
[2023-09-18] MEDS: POLYETHYLENE GLYCOL (HEALTHYLAX) 3350 17 GM PACKET PO SCH (09:13)
[2023-09-18] MEDS: ENOXAPARIN NA (PORCINE) 40 MG/0.4 ML DISP.SYRIN SQ SCH (09:13)
[2023-09-18 10:08] VITALS: BP 132/78; TEMP 98.3
[2023-09-18] MEDS: AMIODARONE HCL 100 MG TABLET PO SCH (10:17)
== END 2023-09-18 15:39 | disposition left against medical advice (07) | DRG 638 ==
LOC: JER 06:56 → JERBED 13:04
PROVIDERS: ADMIT Internal Medicine; ATTEND Internal Medicine
DX: E11.65 Type 2 diabetes mellitus with hyperglycemia (principal); E87.1 Hypo-osmolality and hyponatremia; I45.6 Pre-excitation syndrome; R55 Syncope and collapse; Z21 Asymptomatic human immunodeficiency virus [HIV] infection status; I10 Essential (primary) hypertension; N40.0 Benign prostatic hyperplasia without lower urinary tract symptoms; K21.9 Gastro-esophageal reflux disease without esophagitis
CPT/HCPCS: 0241U-QW; 36415; 70450-TC; 71045-TC-FY; 72125-TC; 80053; 81003; 82010; 82803; 82962; 83036; 83690; 84443; 84484; 85025; 87040; 87086; 93005; 93010; 93306-TC; 93880-TC; 99285-25

== ENCOUNTER 2023-12-31 21:03 | Emergency (ER) | payer MEDICARE, OTHER ==
[2023-12-31 21:07] VITALS: BP 144/72; PULSE 85; RESP 20; TEMP 97.9; BMI 23.7
[2023-12-31 21:57] LABS: URINE APPEARANCE CLEAR; URINE BILIRUBIN NEGATIVE (NEGATIVE); URINE COLOR YELLOW; URINE GLUCOSE (UA) 3+ (NEGATIVE); URINE KETONE NEGATIVE (NEGATIVE); URINE LEUK ESTERASE NEGATIVE (NEGATIVE); URINE NITRITE NEGATIVE (NEGATIVE); URINE PROTEIN NEGATIVE (NEGATIVE); URINE UROBILINOGEN 0.2 mg/dL (0.2-1.0)
[2023-12-31] MEDS ORDERED: LIDOCAINE 4% PATCH TP ONE (21:57)
[2023-12-31] MEDS ORDERED: ACETAMINOPHEN 500 MG TABLET (FP) ONE (21:57)
[2023-12-31] MEDS: ACETAMINOPHEN 500 MG TABLET (FP) PO ONE (22:00)
[2023-12-31] MEDS: LIDOCAINE 5% TOPICAL PATCH TP ONE (22:00)
[2023-12-31 22:40] LABS: EPI CELLS 3.8 /uL (0-25.1); HYALINE CASTS 0 /uL (0-3.1); URINE BACTERIA 0.9 /uL (0-1359); URINE RBC 20.3 /uL (0-23.9)
[2024-01-01] MEDS ORDERED: LIDOCAINE PATCH REMOVAL MC SCH (10:00)
== END 2023-12-31 22:23 | disposition home or self-care (01) ==
LOC: JERFT 21:03
DX: M54.50 Low back pain, unspecified (principal); X50.9XXA Other and unspecified overexertion or strenuous movements or postures, initial encounter
CPT/HCPCS: 81003; 87086; 99283-25

== ENCOUNTER 2024-01-01 13:15 | Emergency (ER) | payer MEDICARE, OTHER ==
[2024-01-01 13:26] VITALS: BP 115/77; PULSE 93; RESP 18; TEMP 98.2; BMI 23.7
[2024-01-01] MEDS ORDERED: ACETAMINOPHEN 325 MG TABLET (FP) ONE (15:00)
[2024-01-01] MEDS ORDERED: LIDOCAINE 4% PATCH TP ONE (15:00)
[2024-01-01] MEDS ORDERED: KETOROLAC TROMETHAMINE 30 MG/1 ML VIAL ONE (15:01)
[2024-01-01] MEDS: LIDOCAINE 5% TOPICAL PATCH TP ONE (15:06)
[2024-01-01] MEDS: KETOROLAC TROMETHAMINE 30 MG/1 ML VIAL IM ONE (15:06)
[2024-01-01] MEDS: ACETAMINOPHEN 500 MG TABLET (FP) PO ONE (15:07)
[2024-01-01] MEDS ORDERED: LIDOCAINE PATCH REMOVAL MC SCH (22:00)
== END 2024-01-01 18:10 | disposition home or self-care (01) ==
LOC: JERFT 13:15
PROC: 3E0233Z Introduction of Anti-inflammatory into Muscle, Percutaneous Approach (ICD-10-PCS; principal; 2024-01-01)
DX: M54.41 Lumbago with sciatica, right side (principal)
CPT/HCPCS: 96372; 99284-25

== ENCOUNTER 2024-05-28 11:38 | Observation (INO) | payer MEDICARE, OTHER ==
[2024-05-28] MEDS ORDERED: ACETAMINOPHEN 325 MG TABLET (FP) ONE (12:25)
[2024-05-28] MEDS: ACETAMINOPHEN 325 MG TABLET (FP) PO ONE (12:48)
[2024-05-28 12:56] LABS: BASO % 0.7 % (0-2.0); EOS % 0.8 % (0-4.5); HEMATOCRIT 37.8 % (35.4-49); HEMOGLOBIN 13.4 GM/dL (11.7-16.9); LYMPH % 16.6 % (8-40); MCH 31.5 pg (25.7-33.7); MCHC 35.4 g/dl (32.0-35.9); MEAN CELL VOLUME 88.8 fl (80-96); MEAN PLT VOLUME 7.7 fl (7.5-11.1); MONO % 7.4 % (3.8-10.2); NEUT % 74.5 % (42.8-82.8); PLATELET COUNT 373 10^3/uL (134-434); RBC 4.26 M/mm3 (4.00-5.60); RDW 14.1 % (11.9-15.9); WHITE BLOOD COUNT 9.2 K/mm3 (4.0-10.0)
[2024-05-28 13:04] LABS: INR 1.03 (0.83-1.09); PROTHROMBIN TIME (PATIENT) 11.6 SEC (9.7-13.0)
[2024-05-28] MEDS ORDERED: INSULIN ASPART SLIDING SCALE (NOVOLOG) 1 VIAL SQ ONE (13:23)
[2024-05-28] MEDS: INSULIN (NOVOLOG) ASPART 100 UNITS/ML 10ML VIAL SQ ONE (13:28)
[2024-05-28 13:31] LABS: POTASSIUM 5.7 mmol/L (3.5-5.1)
[2024-05-28 13:33] LABS: CALCIUM 8.8 mg/dL (8.5-10.1)
[2024-05-28 13:37] LABS: CREATININE 1.2 mg/dL (0.55-1.3)
[2024-05-28 13:39] LABS: BILIRUBIN,TOTAL 1.3 mg/dL (0.2-1); TOT PROT 7.2 g/dl (6.4-8.2)
[2024-05-28 13:46] LABS: ALBUMIN 2.9 g/dl (3.4-5.0)
[2024-05-28] MEDS ORDERED: LIDOCAINE HCL/PF 1% SDV 5ML VIAL ONE (14:05)
[2024-05-28] MEDS: LIDOCAINE HCL 1%, 10 MG/ML (50 mL VIAL) SQ ONE (14:46)
[2024-05-28] MEDS ORDERED: KETOROLAC TROMETHAMINE 15 MG/ML VIAL ONE (14:58)
[2024-05-28] MEDS ORDERED: VANCOMYCIN 1 GRAM (PRE-DOCKED) 1,000 MG/250 ML BAG IVPB ONE (14:59)
[2024-05-28] MEDS: KETOROLAC TROMETHAMINE 15 MG/ML VIAL IVPUSH ONE (15:14)
[2024-05-28] MEDS: VANCOMYCIN 1,000 MG in DEXTROSE 5%-WATER - 250 ML IVPB ONE (15:15)
[2024-05-28 16:11] LABS: POTASSIUM 3.7 mmol/L (3.5-5.1)
[2024-05-28 16:12] LABS: CALCIUM 8.3 mg/dL (8.5-10.1)
[2024-05-28 16:13] LABS: BLOOD UREA NITROGEN 20.1 mg/dL (7-18)
[2024-05-28 16:16] LABS: CREATININE 1.3 mg/dL (0.55-1.3)
[2024-05-28] MEDS ORDERED: DOCUSATE SODIUM 100 MG CAPSULE (FP) PO PRN (17:38)
[2024-05-28] MEDS ORDERED: ACETAMINOPHEN 1000 MG/100 ML BAG IVPB PRN (17:41)
[2024-05-28] MEDS: INSULIN (LEVEMIR) 100 UNITS/ML UNITS SQ SCH (22:46)
[2024-05-28] MEDS: INSULIN ASPART SLIDING SCALE (NOVOLOG) 1 VIAL SQ SCH (22:47)
[2024-05-28] MEDS: GABAPENTIN 300 MG CAPSULE PO SCH (22:49)
[2024-05-28] MEDS: ATORVASTATIN CA 20 MG TABLET (FP) PO SCH (22:49)
[2024-05-28] MEDS: BICTEGRAV/EMTRICIT/TENOFOV (BIKTARVY) 50-200-25 MG TABLET PO SCH (22:50)
[2024-05-28] MEDS: MELATONIN 5 MG TABLETS PO PRN (23:48)
[2024-05-29] MEDS: VANCOMYCIN/WATER FOR INJ (PEG) 1,000 MG/200 ML BAG IVPB SCH (02:13)
[2024-05-29] MEDS ORDERED: VANCOMYCIN/WATER FOR INJ (PEG) 1,000 MG/200 ML BAG IVPB SCH (03:00)
[2024-05-29] MEDS: metFORMIN HCL 500 MG TABLET (FP) PO SCH (06:23)
[2024-05-29] MEDS: BICTEGRAV/EMTRICIT/TENOFOV (BIKTARVY) 50-200-25 MG TABLET PO SCH (07:10)
[2024-05-29] MEDS: VANCOMYCIN 1,000 MG in DEXTROSE 5%-WATER - 250 ML IVPB SCH (07:10)
[2024-05-29] MEDS: PIPERACILLIN/TAZOB 3.375 GM 3.375 GM in DEXTROSE 5%-WATER - 50 ML IVPB SCH (07:11)
[2024-05-29] MEDS: TAMSULOSIN HCL 0.4 MG CAP PO SCH (08:11)
[2024-05-29] MEDS: ASPIRIN COATED 81 MG TABLET.EC PO SCH (09:17)
[2024-05-29] MEDS: ENOXAPARIN NA (PORCINE) 40 MG/0.4 ML DISP.SYRIN SQ SCH (09:17)
[2024-05-29] MEDS: AMIODARONE HCL 100 MG TABLET PO SCH (09:17)
[2024-05-29] MEDS: POLYETHYLENE GLYCOL (HEALTHYLAX) 3350 17 GM PACKET PO SCH (09:17)
[2024-05-29 10:05] LABS: BASO % 0.8 % (0-2.0); EOS % 0.9 % (0-4.5); HEMATOCRIT 36.4 % (35.4-49); HEMOGLOBIN 12.6 GM/dL (11.7-16.9); LYMPH % 17.1 % (8-40); MCH 31.1 pg (25.7-33.7); MCHC 34.5 g/dl (32.0-35.9); MEAN CELL VOLUME 90.1 fl (80-96); MEAN PLT VOLUME 7.9 fl (7.5-11.1); MONO % 6.9 % (3.8-10.2); NEUT % 74.3 % (42.8-82.8); PLATELET COUNT 346 10^3/uL (134-434); RBC 4.04 M/mm3 (4.00-5.60); RDW 13.9 % (11.9-15.9); WHITE BLOOD COUNT 9.9 K/mm3 (4.0-10.0)
[2024-05-29 10:21] LABS: POTASSIUM 4.1 mmol/L (3.5-5.1)
[2024-05-29] MEDS: LIDOCAINE 1% P/F 10 MG/ML VIAL SQ ONE (10:30)
[2024-05-29] MEDS: LIDOCAINE HCL 1%, 10 MG/ML (50 mL VIAL) SQ ONE (10:30)
[2024-05-29 10:31] LABS: CALCIUM 8.4 mg/dL (8.5-10.1)
[2024-05-29 10:32] LABS: ALBUMIN 2.8 g/dl (3.4-5.0); BLOOD UREA NITROGEN 18.7 mg/dL (7-18)
[2024-05-29 10:35] LABS: TOT PROT 6.4 g/dl (6.4-8.2)
[2024-05-29 10:36] LABS: BILIRUBIN,TOTAL 0.7 mg/dL (0.2-1)
[2024-05-29] MEDS ORDERED: LIDOCAINE 1% P/F 10 MG/ML VIAL SQ ONE (10:45)
[2024-05-29] MEDS: oxyCODONE HCL 5 MG TABLET PO PRN (11:50)
[2024-05-30] MEDS ORDERED: INSULIN (LEVEMIR) 100 UNITS/ML UNITS SQ ONE (06:39)
[2024-05-30 07:51] LABS: BASO % 1.1 % (0-2.0); EOS % 1.6 % (0-4.5); HEMATOCRIT 34.8 % (35.4-49); LYMPH % 24.2 % (8-40); MCHC 34.4 g/dl (32.0-35.9); MEAN CELL VOLUME 90.1 fl (80-96); MEAN PLT VOLUME 7.8 fl (7.5-11.1); MONO % 6.8 % (3.8-10.2); NEUT % 66.3 % (42.8-82.8); PLATELET COUNT 331 10^3/uL (134-434); RBC 3.86 M/mm3 (4.00-5.60); RDW 13.9 % (11.9-15.9); WHITE BLOOD COUNT 8.8 K/mm3 (4.0-10.0)
[2024-05-30 08:07] LABS: POTASSIUM 3.8 mmol/L (3.5-5.1)
[2024-05-30 08:08] LABS: CALCIUM 8.4 mg/dL (8.5-10.1)
[2024-05-30 08:09] LABS: ALBUMIN 2.6 g/dl (3.4-5.0); BLOOD UREA NITROGEN 19.3 mg/dL (7-18)
[2024-05-30 08:14] LABS: BILIRUBIN,TOTAL 0.6 mg/dL (0.2-1); TOT PROT 6.2 g/dl (6.4-8.2)
[2024-06-01 09:14] LABS: BASO % 1.2 % (0-2.0); EOS % 1.6 % (0-4.5); HEMATOCRIT 34.8 % (35.4-49); HEMOGLOBIN 12.3 GM/dL (11.7-16.9); LYMPH % 27.5 % (8-40); MCH 31.6 pg (25.7-33.7); MCHC 35.4 g/dl (32.0-35.9); MEAN CELL VOLUME 89.4 fl (80-96); MEAN PLT VOLUME 7.8 fl (7.5-11.1); MONO % 7.6 % (3.8-10.2); NEUT % 62.1 % (42.8-82.8); PLATELET COUNT 360 10^3/uL (134-434); RDW 13.6 % (11.9-15.9); WHITE BLOOD COUNT 8.1 K/mm3 (4.0-10.0)
[2024-06-01] MEDS ORDERED: LIDOCAINE HCL/PF 2% SDV 5ML VIAL ONE (09:24)
[2024-06-01] MEDS ORDERED: PROPOFOL 20 ML ONE (09:24)
[2024-06-01 09:26] LABS: POTASSIUM 4.1 mmol/L (3.5-5.1)
[2024-06-01] MEDS ORDERED: MIDAZOLAM HCL 2 MG/2 ML SINGLE DOSE VIAL ONE (09:27)
[2024-06-01 09:29] LABS: CALCIUM 9.2 mg/dL (8.5-10.1)
[2024-06-01 09:30] LABS: ALBUMIN 2.9 g/dl (3.4-5.0); BLOOD UREA NITROGEN 27.4 mg/dL (7-18)
[2024-06-01 09:33] LABS: CREATININE 1.2 mg/dL (0.55-1.3)
[2024-06-01 09:34] LABS: BILIRUBIN,TOTAL 0.6 mg/dL (0.2-1)
[2024-06-01] MEDS ORDERED: ePHEDrine SULFATE 50 MG/1 ML AMPULE ONE (09:34)
[2024-06-01 09:35] LABS: TOT PROT 6.7 g/dl (6.4-8.2)
[2024-06-01] MEDS ORDERED: DOCUSATE SODIUM 100 MG CAPSULE (FP) PO PRN (10:28)
[2024-06-01] MEDS ORDERED: ONDANSETRON 4 MG/2 ML VIAL IVPUSH PRN (10:34)
[2024-06-01] MEDS: LACTATED RINGERS SOLUTION 1,000 ML IV SCH (11:18)
[2024-06-01] MEDS: INSULIN ASPART SLIDING SCALE (NOVOLOG) 1 VIAL SQ SCH (11:37)
[2024-06-01] MEDS: GABAPENTIN 300 MG CAPSULE PO SCH (13:36)
[2024-06-01] MEDS: oxyCODONE HCL 5 MG TABLET PO PRN (13:44)
[2024-06-01] MEDS ORDERED: VANCOMYCIN/WATER FOR INJ (PEG) 1,000 MG/200 ML BAG IVPB SCH (15:00)
[2024-06-01] MEDS: metFORMIN HCL 500 MG TABLET (FP) PO SCH (16:33)
[2024-06-01] MEDS: INSULIN (LEVEMIR) 100 UNITS/ML UNITS SQ SCH (21:36)
[2024-06-01] MEDS: MELATONIN 5 MG TABLETS PO PRN (21:37)
[2024-06-01] MEDS: ATORVASTATIN CA 20 MG TABLET (FP) PO SCH (21:37)
[2024-06-02] MEDS: VANCOMYCIN/WATER FOR INJ (PEG) 1,000 MG/200 ML BAG IVPB SCH ×2 (01:22→13:24)
[2024-06-02] MEDS: TAMSULOSIN HCL 0.4 MG CAP PO SCH (08:25)
[2024-06-02] MEDS: AMIODARONE HCL 100 MG TABLET PO SCH (09:09)
[2024-06-02] MEDS: BICTEGRAV/EMTRICIT/TENOFOV (BIKTARVY) 50-200-25 MG TABLET PO SCH (09:09)
[2024-06-02] MEDS: ASPIRIN COATED 81 MG TABLET.EC PO SCH (09:10)
[2024-06-02] MEDS: ENOXAPARIN NA (PORCINE) 40 MG/0.4 ML DISP.SYRIN SQ SCH (09:10)
[2024-06-02] MEDS: POLYETHYLENE GLYCOL (HEALTHYLAX) 3350 17 GM PACKET PO SCH (09:10)
[2024-06-02 09:31] LABS: CALCIUM 8.6 mg/dL (8.5-10.1)
[2024-06-02 09:33] LABS: BLOOD UREA NITROGEN 22.4 mg/dL (7-18)
[2024-06-02 09:36] LABS: CREATININE 0.9 mg/dL (0.55-1.3)
[2024-06-03 09:52] LABS: BASO % 1.7 % (0-2.0); EOS % 1.7 % (0-4.5); HEMATOCRIT 34.6 % (35.4-49); HEMOGLOBIN 12.1 GM/dL (11.7-16.9); LYMPH % 25.9 % (8-40); MCH 31.5 pg (25.7-33.7); MCHC 35.1 g/dl (32.0-35.9); MEAN CELL VOLUME 89.9 fl (80-96); NEUT % 61.7 % (42.8-82.8); PLATELET COUNT 345 10^3/uL (134-434); RBC 3.85 M/mm3 (4.00-5.60); RDW 13.6 % (11.9-15.9); WHITE BLOOD COUNT 8.4 K/mm3 (4.0-10.0)
[2024-06-03 10:14] LABS: POTASSIUM 4.4 mmol/L (3.5-5.1)
[2024-06-03 10:33] LABS: ERYTHROCYTE SEDIMENTATION RATE 84 mm/hr (0-20)
[2024-06-03 10:35] LABS: BLOOD UREA NITROGEN 21.3 mg/dL (7-18); CALCIUM 8.6 mg/dL (8.5-10.1)
[2024-06-03 10:39] LABS: CREATININE 0.9 mg/dL (0.55-1.3)
[2024-06-03] MEDS: metFORMIN HCL 500 MG TABLET (FP) PO SCH (16:36)
[2024-06-03] MEDS: ZOLPIDEM TARTRATE 5 MG TABLET PO PRN (22:07)
[2024-06-03 23:10] VITALS: BMI 23.8
[2024-06-04 08:15] LABS: BLOOD UREA NITROGEN 22.4 mg/dL (7-18); CALCIUM 8.4 mg/dL (8.5-10.1)
[2024-06-04 08:16] LABS: ALBUMIN 2.8 g/dl (3.4-5.0)
[2024-06-04 08:19] LABS: CREATININE 0.9 mg/dL (0.55-1.3)
[2024-06-04 08:20] LABS: BILIRUBIN,TOTAL 0.8 mg/dL (0.2-1)
[2024-06-04 08:21] LABS: BASO % 1.5 % (0-2.0); EOS % 2.1 % (0-4.5); HEMATOCRIT 33.8 % (35.4-49); HEMOGLOBIN 11.8 GM/dL (11.7-16.9); MCH 31.9 pg (25.7-33.7); MEAN CELL VOLUME 91.2 fl (80-96); MEAN PLT VOLUME 7.7 fl (7.5-11.1); MONO % 8.2 % (3.8-10.2); NEUT % 64.2 % (42.8-82.8); PLATELET COUNT 327 10^3/uL (134-434); RBC 3.71 M/mm3 (4.00-5.60); RDW 13.3 % (11.9-15.9); WHITE BLOOD COUNT 8.6 K/mm3 (4.0-10.0)
[2024-06-04 08:22] LABS: TOT PROT 6.6 g/dl (6.4-8.2)
[2024-06-05] MEDS: VANCOMYCIN PREMIX 1.5 GM 1,500 MG/300 ML BAG IVPB SCH (14:17)
[2024-06-06 03:02] VITALS: RESP 20
[2024-06-06 09:19] LABS: HEMATOCRIT 33.6 % (35.4-49); HEMOGLOBIN 11.6 GM/dL (11.7-16.9); MCH 31.6 pg (25.7-33.7); MCHC 34.4 g/dl (32.0-35.9); MEAN CELL VOLUME 91.8 fl (80-96); MEAN PLT VOLUME 7.7 fl (7.5-11.1); PLATELET COUNT 382 10^3/uL (134-434); RBC 3.66 M/mm3 (4.00-5.60); RDW 13.6 % (11.9-15.9); WHITE BLOOD COUNT 8.7 K/mm3 (4.0-10.0)
[2024-06-06 09:34] LABS: POTASSIUM 4.7 mmol/L (3.5-5.1)
[2024-06-06 09:38] LABS: ALBUMIN 2.8 g/dl (3.4-5.0); BLOOD UREA NITROGEN 28.5 mg/dL (7-18)
[2024-06-06 09:42] LABS: BILIRUBIN,TOTAL 0.6 mg/dL (0.2-1); TOT PROT 6.6 g/dl (6.4-8.2)
[2024-06-06 09:47] LABS: ANISOCYTOSIS 0; MACROCYTOSIS 0
[2024-06-06 17:39] VITALS: BP 124/80; PULSE 75; TEMP 97.7
== END 2024-06-06 18:52 ==
LOC: JER 11:38 → JERBED 14:54 → INTOOBSV 14:54 → UNDOADMOB 14:54 → JERBED 18:58 → J6S 18:58 → JERBED 05-31 08:28 → J6S 05-31 08:28
PROVIDERS: ADMIT Internal Medicine; ATTEND Internal Medicine
PROC: 3E023GC Introduction of Other Therapeutic Substance into Muscle, Percutaneous Approach (ICD-10-PCS; principal; 2024-05-31)
PROC: 3E013VG Introduction of Insulin into Subcutaneous Tissue, Percutaneous Approach (ICD-10-PCS; 2024-05-31)
PROC: 3E0333Z Introduction of Anti-inflammatory into Peripheral Vein, Percutaneous Approach (ICD-10-PCS; 2024-05-31)
PROC: 3E0337Z Introduction of Electrolytic and Water Balance Substance into Peripheral Vein, Percutaneous Approach (ICD-10-PCS; 2024-05-31)
PROC: 3E033NZ Introduction of Analgesics, Hypnotics, Sedatives into Peripheral Vein, Percutaneous Approach (ICD-10-PCS; 2024-05-31)
PROC: 3E03329 Introduction of Other Anti-infective into Peripheral Vein, Percutaneous Approach (ICD-10-PCS; 2024-05-31)
PROC: 0R9L0ZZ Drainage of Right Elbow Joint, Open Approach (ICD-10-PCS; 2024-05-31)
PROC: 05HY33Z Insertion of Infusion Device into Upper Vein, Percutaneous Approach (ICD-10-PCS; 2024-06-06)
DX: M71.121 Other infective bursitis, right elbow (principal); N17.9 Acute kidney failure, unspecified; E78.5 Hyperlipidemia, unspecified; I10 Essential (primary) hypertension; E11.65 Type 2 diabetes mellitus with hyperglycemia; I45.6 Pre-excitation syndrome; Z21 Asymptomatic human immunodeficiency virus [HIV] infection status; Z86.19 Personal history of other infectious and parasitic diseases; K21.9 Gastro-esophageal reflux disease without esophagitis; N40.0 Benign prostatic hyperplasia without lower urinary tract symptoms
CPT/HCPCS: 36415; 36569; 36573; 73070-TC-RT-FY; 80048; 80053; 82962; 83036; 85025; 85610; 85651; 86140; 87040; 87070; 87075; 87186; 87205; 88304-TC; 94760; 96361; 96365; 96366; 96372; 96375; 97116-GP; 97161-GP; 99285-25; G0378; G0480

== ENCOUNTER 2024-06-26 06:23 | Inpatient (IN) | payer MEDICARE, OTHER ==
[2024-06-26] MEDS: LACTATED RINGERS SOLUTION 1,000 ML/1,000 ML INFUS.BAG IV STA (08:18)
[2024-06-26 08:25] LABS: HEMOGLOBIN 10.8 GM/dL (11.7-16.9); MCH 30.6 pg (25.7-33.7); MEAN CELL VOLUME 87.4 fl (80-96); MEAN PLT VOLUME 7.5 fl (7.5-11.1); PLATELET COUNT 192 10^3/uL (134-434); RBC 3.54 M/mm3 (4.00-5.60); RDW 13.7 % (11.9-15.9); WHITE BLOOD COUNT 9.7 K/mm3 (4.0-10.0)
[2024-06-26] MEDS ORDERED: LIDOCAINE 4% PATCH TP ONE (08:38)
[2024-06-26] MEDS: LIDOCAINE 4% PATCH TP ONE (08:40)
[2024-06-26 08:57] LABS: EPI CELLS 4 /uL (0-25.1); HYALINE CASTS 0 /uL (0-3.1); PH,URINE 5.5 (5.0-8.0); URINE APPEARANCE CLOUDY; URINE BACTERIA 2 /uL (0-1359); URINE BILIRUBIN NEGATIVE (NEGATIVE); URINE COLOR YELLOW; URINE GLUCOSE (UA) 3+ (NEGATIVE); URINE KETONE TRACE (NEGATIVE); URINE LEUK ESTERASE NEGATIVE (NEGATIVE); URINE NITRITE NEGATIVE (NEGATIVE); URINE PROTEIN 1+ (NEGATIVE); URINE RBC 32 /uL (0-23.9); URINE UROBILINOGEN 0.2 mg/dL (0.2-1.0); URINE WBC 17 /uL (0-25.8)
[2024-06-26 09:08] LABS: POTASSIUM 3.8 mmol/L (3.5-5.1)
[2024-06-26 09:11] LABS: ALBUMIN 3.2 g/dl (3.4-5.0); BLOOD UREA NITROGEN 51.4 mg/dL (7-18)
[2024-06-26 09:14] LABS: CREATININE 2.2 mg/dL (0.55-1.3)
[2024-06-26 09:15] LABS: BILIRUBIN,TOTAL 1.6 mg/dL (0.2-1); TOT PROT 6.4 g/dl (6.4-8.2)
[2024-06-26 09:16] LABS: ANISOCYTOSIS 1+; MACROCYTOSIS 0
[2024-06-26] MEDS ORDERED: ACETAMINOPHEN INJECTION 100 ML IVPB ONE (09:47)
[2024-06-26] MEDS: ACETAMINOPHEN 1000 MG/100 ML BAG IVPB ONE ×2 (09:52→21:29)
[2024-06-26] MEDS: DEXTROSE 5%-0.45% SALINE 1,000 ML IV SCH (16:29)
[2024-06-26] MEDS: INSULIN ASPART SLIDING SCALE (NOVOLOG) 1 VIAL SQ SCH (16:44)
[2024-06-26] MEDS: ATORVASTATIN CA 20 MG TABLET (FP) PO SCH (21:30)
[2024-06-26] MEDS: GABAPENTIN 300 MG CAPSULE PO SCH (21:30)
[2024-06-26] MEDS: LIDOCAINE PATCH REMOVAL MC ONE (21:39)
[2024-06-27 10:07] LABS: BASO % 0.9 % (0-2.0); EOS % 7.9 % (0-4.5); HEMATOCRIT 30.6 % (35.4-49); HEMOGLOBIN 10.7 GM/dL (11.7-16.9); LYMPH % 21.7 % (8-40); MCH 30.2 pg (25.7-33.7); MCHC 34.9 g/dl (32.0-35.9); MEAN CELL VOLUME 86.6 fl (80-96); MEAN PLT VOLUME 7.4 fl (7.5-11.1); MONO % 13.4 % (3.8-10.2); NEUT % 56.1 % (42.8-82.8); PLATELET COUNT 208 10^3/uL (134-434); RBC 3.54 M/mm3 (4.00-5.60); RDW 13.3 % (11.9-15.9)
[2024-06-27 10:24] LABS: POTASSIUM 3.4 mmol/L (3.5-5.1)
[2024-06-27 10:28] LABS: ALBUMIN 2.8 g/dl (3.4-5.0)
[2024-06-27 10:32] LABS: CREATININE 0.9 mg/dL (0.55-1.3)
[2024-06-27 10:33] LABS: BILIRUBIN,TOTAL 1.1 mg/dL (0.2-1); BLOOD UREA NITROGEN 23.6 mg/dL (7-18)
[2024-06-27] MEDS ORDERED: POTASSIUM CHLORIDE ORAL LIQUID 20 MEQ/15 ML PO ONE (10:37)
[2024-06-27] MEDS: BICTEGRAV/EMTRICIT/TENOFOV (BIKTARVY) 50-200-25 MG TABLET PO SCH (11:18)
[2024-06-27] MEDS: ASPIRIN COATED 81 MG TABLET.EC PO SCH (11:18)
[2024-06-27] MEDS: TAMSULOSIN HCL 0.4 MG CAP PO SCH (11:19)
[2024-06-27] MEDS: ENOXAPARIN NA (PORCINE) 40 MG/0.4 ML DISP.SYRIN SQ SCH (11:20)
[2024-06-27] MEDS: AMIODARONE HCL 100 MG TABLET PO SCH (11:41)
[2024-06-27] MEDS: POTASSIUM CHLORIDE ORAL LIQUID 20 MEQ/15 ML PO ONE (11:50)
[2024-06-27] MEDS: POTASSIUM CHLORIDE 10 MEQ in SODIUM CHLORIDE 0.45% 1,000 ML IVPB SCH (15:04)
[2024-06-28 10:00] LABS: BASO % 1.1 % (0-2.0); EOS % 11.5 % (0-4.5); HEMATOCRIT 33.2 % (35.4-49); HEMOGLOBIN 11.5 GM/dL (11.7-16.9); LYMPH % 23.6 % (8-40); MCH 30.4 pg (25.7-33.7); MCHC 34.6 g/dl (32.0-35.9); MEAN CELL VOLUME 87.8 fl (80-96); MEAN PLT VOLUME 7.8 fl (7.5-11.1); MONO % 8.2 % (3.8-10.2); NEUT % 55.6 % (42.8-82.8); PLATELET COUNT 279 10^3/uL (134-434); RBC 3.78 M/mm3 (4.00-5.60); RDW 13.4 % (11.9-15.9); WHITE BLOOD COUNT 8.8 K/mm3 (4.0-10.0)
[2024-06-28 10:22] LABS: CALCIUM 8.1 mg/dL (8.5-10.1)
[2024-06-28 10:23] LABS: ALBUMIN 2.7 g/dl (3.4-5.0); BLOOD UREA NITROGEN 20.7 mg/dL (7-18)
[2024-06-28 10:26] LABS: CREATININE 1.3 mg/dL (0.55-1.3)
[2024-06-28 10:27] LABS: BILIRUBIN,TOTAL 1.1 mg/dL (0.2-1)
[2024-06-28] MEDS: SODIUM CHLORIDE 0.9% 500 ML INFUS.BAG IV ONE ×2 (14:03→18:59)
[2024-06-28] MEDS: ACETAMINOPHEN 325 MG TABLET (FP) PO PRN (14:14)
[2024-06-28] MEDS: DEXTROSE 5%-0.45% SALINE 1,000 ML IV SCH (15:03)
[2024-06-28] MEDS: VANCOMYCIN/WATER 1250 MG 1,250 MG/250 ML BAG IVPB SCH (17:05)
[2024-06-28] MEDS: LACTATED RINGERS SOLUTION 1000 ML INFUS.BAG IV ONE ×2 (19:45→21:30)
[2024-06-28] MEDS: PIPERACILLIN/TAZOB 3.375 GM 3.375 GM in DEXTROSE 5%-WATER - 50 ML IVPB ONE (20:01)
[2024-06-28] MEDS: NOREPINEPHRINE BITARTRATE 4,000 MCG in DEXTROSE 5%-WATER - 496 ML IV SCH (21:40)
[2024-06-28 23:34] LABS: HEMATOCRIT 35.3 % (35.4-49); MCHC 34.1 g/dl (32.0-35.9); MEAN CELL VOLUME 87.9 fl (80-96); MEAN PLT VOLUME 8.1 fl (7.5-11.1); PLATELET COUNT 225 10^3/uL (134-434); RBC 4.02 M/mm3 (4.00-5.60); RDW 13.6 % (11.9-15.9); WHITE BLOOD COUNT 14.9 K/mm3 (4.0-10.0)
[2024-06-28 23:56] LABS: POTASSIUM 4.1 mmol/L (3.5-5.1)
[2024-06-28 23:58] LABS: BLOOD UREA NITROGEN 26.3 mg/dL (7-18); CALCIUM 7.8 mg/dL (8.5-10.1); MAGNESIUM 1.6 mg/dL (1.8-2.4)
[2024-06-29 00:02] LABS: CREATININE 1.9 mg/dL (0.55-1.3); PHOSPHOROUS 1.8 mg/dL (2.5-4.9)
[2024-06-29] MEDS: DEXTROSE 5%-LACTATED RINGERS 1,000 ML IV SCH (00:30)
[2024-06-29] MEDS: ACETAMINOPHEN 1000 MG/100 ML BAG IVPB PRN ×3 (00:57→22:59)
[2024-06-29] MEDS: MAGNESIUM SULF 50% (8.12 MEQ/2 ML-1 GM VIAL) IVPB ONE (01:01)
[2024-06-29] MEDS: LACTATED RINGERS SOLUTION 1000 ML INFUS.BAG IV ONE ×2 (01:50→09:22)
[2024-06-29] MEDS: SODIUM PHOSPHATE IVPB ONE (02:30)
[2024-06-29] MEDS: DEXTROSE IVPB ONE (02:30)
[2024-06-29] MEDS: WATER IVPB ONE (02:30)
[2024-06-29] MEDS: PIPERACILLIN/TAZOB 3.375 GM 3.375 GM in DEXTROSE 5%-WATER - 50 ML IVPB ONE (02:38)
[2024-06-29] MEDS ORDERED: DEXTROSE 5%-0.45% SALINE 1,000 ML IV SCH (03:53)
[2024-06-29] MEDS: GABAPENTIN 300 MG CAPSULE PO SCH (06:24)
[2024-06-29] MEDS: NOREPINEPHRINE BITARTRATE 4,000 MCG in DEXTROSE 5%-WATER - 496 ML IV SCH (06:25)
[2024-06-29] MEDS: INSULIN ASPART SLIDING SCALE (NOVOLOG) 1 VIAL SQ SCH (06:26)
[2024-06-29] MEDS ORDERED: INSULIN ASPART SLIDING SCALE (NOVOLOG) 1 VIAL SQ ONE (06:28)
[2024-06-29 06:47] LABS: BASO % 0.5 % (0-2.0); EOS % 4.8 % (0-4.5); HEMATOCRIT 32.4 % (35.4-49); LYMPH % 9.9 % (8-40); MCH 30.4 pg (25.7-33.7); MCHC 33.9 g/dl (32.0-35.9); MEAN CELL VOLUME 89.7 fl (80-96); MONO % 4.7 % (3.8-10.2); NEUT % 80.1 % (42.8-82.8); PLATELET COUNT 256 10^3/uL (134-434); RBC 3.61 M/mm3 (4.00-5.60); RDW 13.3 % (11.9-15.9); WHITE BLOOD COUNT 12.4 K/mm3 (4.0-10.0)
[2024-06-29 07:02] LABS: POTASSIUM 4.1 mmol/L (3.5-5.1)
[2024-06-29 07:07] LABS: ALBUMIN 2.2 g/dl (3.4-5.0); ALBUMIN 2.3 g/dl (3.4-5.0); BLOOD UREA NITROGEN 28.1 mg/dL (7-18); CALCIUM 7.5 mg/dL (8.5-10.1); MAGNESIUM 2.2 mg/dL (1.8-2.4)
[2024-06-29 07:08] LABS: BILIRUBIN,DIRECT 0.4 mg/dL (0.0-0.2)
[2024-06-29 07:09] LABS: CREATININE 1.8 mg/dL (0.55-1.3)
[2024-06-29 07:10] LABS: PHOSPHOROUS 3.8 mg/dL (2.5-4.9)
[2024-06-29 07:11] LABS: BILIRUBIN,TOTAL 1.3 mg/dL (0.2-1); TOT PROT 5.2 g/dl (6.4-8.2)
[2024-06-29] MEDS: MUPIROCIN 2% TOPICAL OINTMENT FOR DECOLONIZATION NS SCH (09:56)
[2024-06-29] MEDS: INSULIN (LEVEMIR) 100 UNITS/ML UNITS SQ ONE (09:56)
[2024-06-29] MEDS: ASPIRIN COATED 81 MG TABLET.EC PO SCH (09:58)
[2024-06-29] MEDS: BICTEGRAV/EMTRICIT/TENOFOV (BIKTARVY) 50-200-25 MG TABLET PO SCH (09:58)
[2024-06-29] MEDS: AMIODARONE HCL 100 MG TABLET PO SCH (09:58)
[2024-06-29] MEDS: ENOXAPARIN NA (PORCINE) 40 MG/0.4 ML DISP.SYRIN SQ SCH (09:59)
[2024-06-29] MEDS: LACTATED RINGERS SOLUTION 1,000 ML/1,000 ML INFUS.BAG IV SCH (12:00)
[2024-06-29 13:23] LABS: LACTIC ACID 2.8 mmol/L (0.4-2.0)
[2024-06-29] MEDS: VANCOMYCIN/WATER 1250 MG 1,250 MG/250 ML BAG IVPB SCH (16:29)
[2024-06-29 16:30] LABS: ARTERIAL BLD GAS O2 SATURATION 95.6 % (95-98); ARTERIAL BLOOD GAS BASE EXCESS -4.5 mmol/L (-2-2); ARTERIAL BLOOD GAS PO2 72.3 mmHg (80-100)
[2024-06-29 16:31] LABS: ALLENS TEST POSITIVE
[2024-06-29] MEDS ORDERED: ALBUMIN HUMAN 5% 250 ML IV SOLUTION IV ONE (18:08)
[2024-06-29] MEDS: ALBUMIN HUMAN 5% 500 ML IV SOLUTION IV ONE (19:04)
[2024-06-29] MEDS: AMIODARONE IN DEXTROSE,ISO-OSM 150 MG/100 ML BAG IVPB ONE (20:00)
[2024-06-29] MEDS: AMIODARONE IN DEXTROSE,ISO-OSM 360 MG/200 ML BAG IV SCH (20:09)
[2024-06-29] MEDS: DEXMEDETOMIDINE PREMIX 400 MCG/100 ML BAG IVPB SCH (21:53)
[2024-06-29] MEDS: ATORVASTATIN CA 20 MG TABLET (FP) PO SCH (21:56)
[2024-06-29] MEDS: CHLORHEXIDINE GLUCONATE 4% CLEANSER FOR DECOLONIZATION TP SCH (21:56)
[2024-06-30] MEDS: LACTATED RINGERS SOLUTION 1,000 ML/1,000 ML INFUS.BAG IV STA (00:21)
[2024-06-30] MEDS: AMIODARONE IN DEXTROSE,ISO-OSM 360 MG/200 ML BAG IV SCH (02:24)
[2024-06-30] MEDS ORDERED: NOREPINEPHRINE BITARTRATE 4 MG/4 ML ML IV ONE (06:11)
[2024-06-30 07:29] LABS: INR 1.58 (0.83-1.09); PROTHROMBIN TIME (PATIENT) 17.6 SEC (9.7-13.0)
[2024-06-30 07:31] LABS: ACTIVATED PTT 31.9 SECONDS (25.2-36.5)
[2024-06-30 07:34] LABS: BASO % 0.5 % (0-2.0); EOS % 9.3 % (0-4.5); HEMATOCRIT 32.1 % (35.4-49); HEMOGLOBIN 10.9 GM/dL (11.7-16.9); MCH 30.2 pg (25.7-33.7); MEAN CELL VOLUME 88.7 fl (80-96); MEAN PLT VOLUME 8.1 fl (7.5-11.1); MONO % 6.6 % (3.8-10.2); NEUT % 70.6 % (42.8-82.8); PLATELET COUNT 288 10^3/uL (134-434); RBC 3.62 M/mm3 (4.00-5.60); RDW 13.7 % (11.9-15.9); WHITE BLOOD COUNT 12.7 K/mm3 (4.0-10.0)
[2024-06-30 07:38] LABS: POTASSIUM 3.6 mmol/L (3.5-5.1)
[2024-06-30 07:41] LABS: CALCIUM 7.6 mg/dL (8.5-10.1)
[2024-06-30 07:42] LABS: ALBUMIN 2.2 g/dl (3.4-5.0); BLOOD UREA NITROGEN 29.3 mg/dL (7-18); MAGNESIUM 1.8 mg/dL (1.8-2.4)
[2024-06-30 07:45] LABS: CREATININE 1.5 mg/dL (0.55-1.3); PHOSPHOROUS 3.3 mg/dL (2.5-4.9)
[2024-06-30 07:46] LABS: BILIRUBIN,TOTAL 0.9 mg/dL (0.2-1)
[2024-06-30 07:47] LABS: TOT PROT 4.8 g/dl (6.4-8.2)
[2024-06-30] MEDS: VANCOMYCIN/WATER FOR INJ (PEG) 1,000 MG/200 ML BAG IVPB SCH (12:50)
[2024-06-30] MEDS ORDERED: VANCOMYCIN/WATER 1250 MG 1,250 MG/250 ML BAG IVPB SCH (16:00)
[2024-07-01] MEDS: MIDODRINE HCL 5 MG TABLET PO SCH (00:21)
[2024-07-01] MEDS: MELATONIN 5 MG TABLETS PO ONE (00:22)
[2024-07-01] MEDS ORDERED: ACETAMINOPHEN INJECTION 100 ML ONE (06:12)
[2024-07-01] MEDS: ACETAMINOPHEN 1000 MG/100 ML BAG IVPB PRN (06:30)
[2024-07-01 06:52] LABS: POTASSIUM 3.7 mmol/L (3.5-5.1)
[2024-07-01 06:54] LABS: CALCIUM 7.7 mg/dL (8.5-10.1)
[2024-07-01 06:55] LABS: BLOOD UREA NITROGEN 30.8 mg/dL (7-18); MAGNESIUM 1.8 mg/dL (1.8-2.4)
[2024-07-01 06:58] LABS: CREATININE 1.5 mg/dL (0.55-1.3)
[2024-07-01 06:59] LABS: BILIRUBIN,TOTAL 1.1 mg/dL (0.2-1)
[2024-07-01 07:02] LABS: BASO % 0.9 % (0-2.0); EOS % 9.2 % (0-4.5); HEMATOCRIT 30.6 % (35.4-49); HEMOGLOBIN 10.4 GM/dL (11.7-16.9); LYMPH % 15.3 % (8-40); MCH 29.9 pg (25.7-33.7); MCHC 33.9 g/dl (32.0-35.9); MEAN PLT VOLUME 7.9 fl (7.5-11.1); MONO % 5.4 % (3.8-10.2); NEUT % 69.2 % (42.8-82.8); PLATELET COUNT 310 10^3/uL (134-434); RBC 3.47 M/mm3 (4.00-5.60); RDW 13.6 % (11.9-15.9); WHITE BLOOD COUNT 12.1 K/mm3 (4.0-10.0)
[2024-07-01 13:32] LABS: LACTIC ACID 2.6 mmol/L (0.4-2.0)
[2024-07-01] MEDS ORDERED: CEFTRIAXONE 1 MG in DEXTROSE 5%-WATER - 50 ML IVPB SCH (13:45)
[2024-07-01] MEDS: CEFTRIAXONE 1 GM in DEXTROSE 5%-WATER - 50 ML IVPB SCH (13:51)
[2024-07-01] MEDS: PIPERACILLIN/TAZOB 3.375 GM 3.375 GM in DEXTROSE 5%-WATER - 50 ML IVPB SCH ×2 (13:58)
[2024-07-01] MEDS: AZITHROMYCIN IVPB 500 MG/250 ML BAG IVPB ONE (16:01)
[2024-07-01] MEDS: PIPERACILLIN/TAZOB 4.5 GM 4.5 GM in DEXTROSE 5%-WATER 100 ML IVPB SCH (17:21)
[2024-07-01] MEDS: DOXYCYCLINE HYCLATE 100 MG CAPSULE PO SCH (19:29)
[2024-07-01] MEDS: DAPTOMYCIN 600 MG in SODIUM CHLORIDE 50 ML IVPB SCH (19:29)
[2024-07-01] MEDS: FENTANYL CITRATE/PF 50 MCG/ML VIAL IVPUSH ONE (19:37)
[2024-07-02 06:51] LABS: BASO % 0.8 % (0-2.0); HEMATOCRIT 31.1 % (35.4-49); HEMOGLOBIN 10.6 GM/dL (11.7-16.9); LYMPH % 30.8 % (8-40); MCH 30.3 pg (25.7-33.7); MCHC 33.9 g/dl (32.0-35.9); MEAN CELL VOLUME 89.3 fl (80-96); MEAN PLT VOLUME 7.8 fl (7.5-11.1); MONO % 6.5 % (3.8-10.2); NEUT % 51.9 % (42.8-82.8); PLATELET COUNT 305 10^3/uL (134-434); RBC 3.49 M/mm3 (4.00-5.60); RDW 13.6 % (11.9-15.9); WHITE BLOOD COUNT 13.9 K/mm3 (4.0-10.0)
[2024-07-02 06:56] LABS: POTASSIUM 3.4 mmol/L (3.5-5.1)
[2024-07-02 06:58] LABS: CALCIUM 7.7 mg/dL (8.5-10.1)
[2024-07-02 06:59] LABS: BLOOD UREA NITROGEN 35.2 mg/dL (7-18); MAGNESIUM 1.9 mg/dL (1.8-2.4)
[2024-07-02 07:02] LABS: CREATININE 1.8 mg/dL (0.55-1.3)
[2024-07-02] MEDS: POTASSIUM CHLORIDE ORAL LIQUID 20 MEQ/15 ML PO ONE (08:34)
[2024-07-02 10:44] LABS: ANISOCYTOSIS 0; MACROCYTOSIS 0
[2024-07-02] MEDS: ACETAMINOPHEN 1000 MG/100 ML BAG IVPB PRN (12:56)
[2024-07-02] MEDS: LACTATED RINGERS SOLUTION 1000 ML INFUS.BAG IV ONE (13:30)
[2024-07-02] MEDS: MIDODRINE HCL 5 MG TABLET PO SCH (13:34)
[2024-07-02 15:46] VITALS: BMI 29.1
[2024-07-03 06:53] LABS: HEMATOCRIT 29.7 % (35.4-49); HEMOGLOBIN 10.1 GM/dL (11.7-16.9); MCH 31.3 pg (25.7-33.7); MCHC 34.2 g/dl (32.0-35.9); MEAN CELL VOLUME 91.7 fl (80-96); MEAN PLT VOLUME 7.5 fl (7.5-11.1); PLATELET COUNT 301 10^3/uL (134-434); RBC 3.24 M/mm3 (4.00-5.60); RDW 13.8 % (11.9-15.9); WHITE BLOOD COUNT 20.6 K/mm3 (4.0-10.0)
[2024-07-03 07:25] LABS: POTASSIUM 3.3 mmol/L (3.5-5.1)
[2024-07-03 07:28] LABS: CALCIUM 7.7 mg/dL (8.5-10.1)
[2024-07-03 07:29] LABS: BLOOD UREA NITROGEN 31.1 mg/dL (7-18)
[2024-07-03 07:32] LABS: CREATININE 1.7 mg/dL (0.55-1.3)
[2024-07-03 09:27] LABS: ANISOCYTOSIS 0; MACROCYTOSIS 0
[2024-07-03] MEDS: POTASSIUM CHLORIDE ORAL LIQUID 20 MEQ/15 ML PO SCH (09:44)
[2024-07-03] MEDS: ACETAMINOPHEN 1000 MG/100 ML BAG IVPB PRN (09:45)
[2024-07-03] MEDS: DEXAMETHASONE SOD PHOSPHATE 10 MG/1 ML VIAL IVPUSH SCH (11:45)
[2024-07-04 09:40] LABS: HEMATOCRIT 28.6 % (35.4-49); HEMOGLOBIN 9.6 GM/dL (11.7-16.9); MCH 29.8 pg (25.7-33.7); MCHC 33.6 g/dl (32.0-35.9); MEAN CELL VOLUME 88.8 fl (80-96); MEAN PLT VOLUME 7.2 fl (7.5-11.1); PLATELET COUNT 305 10^3/uL (134-434); RBC 3.22 M/mm3 (4.00-5.60); RDW 14.3 % (11.9-15.9); WHITE BLOOD COUNT 23.8 K/mm3 (4.0-10.0)
[2024-07-04 09:55] LABS: POTASSIUM 4.3 mmol/L (3.5-5.1)
[2024-07-04 09:56] LABS: POTASSIUM 4.3 mmol/L (3.5-5.1)
[2024-07-04 09:58] LABS: BLOOD UREA NITROGEN 32.1 mg/dL (7-18)
[2024-07-04 09:59] LABS: CALCIUM 8.3 mg/dL (8.5-10.1)
[2024-07-04 10:00] LABS: MAGNESIUM 2.3 mg/dL (1.8-2.4)
[2024-07-04 10:01] LABS: CREATININE 1.7 mg/dL (0.55-1.3)
[2024-07-04 10:03] LABS: BILIRUBIN,TOTAL 0.5 mg/dL (0.2-1); TOT PROT 6.3 g/dl (6.4-8.2)
[2024-07-04 10:04] LABS: BLOOD UREA NITROGEN 31.8 mg/dL (7-18); CREATININE 1.6 mg/dL (0.55-1.3); PHOSPHOROUS 3.5 mg/dL (2.5-4.9)
[2024-07-04 10:20] LABS: ANISOCYTOSIS 0; MACROCYTOSIS 0
[2024-07-05 15:15] VITALS: RESP 18
[2024-07-05 21:00] VITALS: BP 105/72; PULSE 74; TEMP 98.8
== END 2024-07-05 23:30 | DRG 682 ==
LOC: JER 06:23 → JERBED 09:53 → INTOOBSV 09:53 → UNDOADMOB 09:53 → J5S 11:45 → JERBED 11:45 → J5S 14:56 → JERBED 14:56 → JICU 06-28 22:01 → OBSVTOIN 06-29 08:20 → J6S 07-03 20:20
PROVIDERS: ADMIT Internal Medicine; ATTEND Internal Medicine
DX: N17.9 Acute kidney failure, unspecified (principal); A41.9 Sepsis, unspecified organism; R65.21 Severe sepsis with septic shock; J18.9 Pneumonia, unspecified organism; E87.4 Mixed disorder of acid-base balance; B20 Human immunodeficiency virus [HIV] disease; E87.20 Acidosis, unspecified; E78.5 Hyperlipidemia, unspecified; I10 Essential (primary) hypertension; E11.9 Type 2 diabetes mellitus without complications; I45.6 Pre-excitation syndrome; M70.21 Olecranon bursitis, right elbow; I95.9 Hypotension, unspecified; L27.0 Generalized skin eruption due to drugs and medicaments taken internally; K52.9 Noninfective gastroenteritis and colitis, unspecified; E86.0 Dehydration; N40.0 Benign prostatic hyperplasia without lower urinary tract symptoms; E87.6 Hypokalemia; K21.9 Gastro-esophageal reflux disease without esophagitis
CPT/HCPCS: 0241U-QW; 36415; 36600; 71045-TC-FY; 73070-TC-RT-FY; 74176-TC; 74230-TC-FY; 76775-TC; 80048; 80053; 80076; 81003; 82308; 82436; 82550; 82553; 82570; 82803; 82962; 83036; 83605; 83690; 83735; 84100; 84133; 84156; 84300; 84443; 84484; 85025; 85027; 85610; 85651; 85730; 86140; 87040; 87045; 87046; 87086; 87186; 87209; 87324; 87449; 87635; 92611-GN; 93005; 93010; 93306-TC; 97116-GP; 97161-GP; 99284-25; 99285-25; G0378; G0480; J0131; J0282; J0878; J1100

== ENCOUNTER 2024-07-10 11:02 | Emergency (ER) | payer MEDICARE, OTHER ==
[2024-07-10 11:56] VITALS: BP 110/71; PULSE 80; RESP 16; TEMP 98.4; BMI 25.2
== END 2024-07-10 13:42 | disposition left against medical advice (07) ==
LOC: JER 11:02
DX: R53.1 Weakness (principal)
CPT/HCPCS: 71045-TC-FY; 93005; 93010; 99284-25

== ENCOUNTER 2024-07-12 19:52 | Inpatient (IN) | payer OTHER ==
[2024-07-12 20:19] VITALS: BMI 25.1
[2024-07-12 21:52] LABS: BASO % 0.9 % (0-2.0); EOS % 14.4 % (0-4.5); HEMATOCRIT 28.3 % (35.4-49); HEMOGLOBIN 9.3 GM/dL (11.7-16.9); LYMPH % 21.8 % (8-40); MCH 29.6 pg (25.7-33.7); MCHC 32.7 g/dl (32.0-35.9); MEAN CELL VOLUME 90.5 fl (80-96); MEAN PLT VOLUME 6.4 fl (7.5-11.1); MONO % 7.7 % (3.8-10.2); NEUT % 55.2 % (42.8-82.8); PLATELET COUNT 208 10^3/uL (134-434); RBC 3.13 M/mm3 (4.00-5.60); RDW 15.2 % (11.9-15.9); WHITE BLOOD COUNT 8.5 K/mm3 (4.0-10.0)
[2024-07-12 22:15] LABS: INR 1.81 (0.83-1.09); PROTHROMBIN TIME (PATIENT) 20.5 SEC (9.7-13.0)
[2024-07-12 22:17] LABS: ACTIVATED PTT 29.1 SECONDS (25.2-36.5)
[2024-07-12 22:31] LABS: ALBUMIN 1.8 g/dl (3.4-5.0); BLOOD UREA NITROGEN 16.5 mg/dL (7-18); CALCIUM 7.6 mg/dL (8.5-10.1); MAGNESIUM 1.9 mg/dL (1.8-2.4)
[2024-07-12 22:34] LABS: CREATININE 0.9 mg/dL (0.55-1.3)
[2024-07-12 22:35] LABS: PHOSPHOROUS 3.5 mg/dL (2.5-4.9)
[2024-07-12 22:36] LABS: BILIRUBIN,TOTAL 0.9 mg/dL (0.2-1); TOT PROT 6.2 g/dl (6.4-8.2)
[2024-07-13] MEDS ORDERED: morphine SULFATE 4 MG/ML VIAL ONE (01:58)
[2024-07-13] MEDS: morphine CARPU-JECT 4 MG/1 ML DISP.SYRIN IVPUSH ONE (02:05)
[2024-07-13] MEDS ORDERED: INSULIN ASPART SLIDING SCALE (NOVOLOG) 1 VIAL SQ ONE (09:53)
[2024-07-13] MEDS: INSULIN ASPART SLIDING SCALE (NOVOLOG) 1 VIAL SQ SCH (09:55)
[2024-07-13] MEDS: MIDODRINE HCL 5 MG TABLET PO SCH (10:00)
[2024-07-13] MEDS: TAMSULOSIN HCL 0.4 MG CAP PO SCH (10:00)
[2024-07-13] MEDS: AMIODARONE HCL 100 MG TABLET PO SCH (10:00)
[2024-07-13] MEDS: BICTEGRAV/EMTRICIT/TENOFOV (BIKTARVY) 50-200-25 MG TABLET PO SCH (10:00)
[2024-07-13 10:54] LABS: POTASSIUM 3.7 mmol/L (3.5-5.1)
[2024-07-13 11:00] LABS: BLOOD UREA NITROGEN 16.1 mg/dL (7-18); CALCIUM 7.8 mg/dL (8.5-10.1)
[2024-07-13 11:04] LABS: CREATININE 0.9 mg/dL (0.55-1.3)
[2024-07-13 11:23] LABS: BASO % 1.5 % (0-2.0); EOS % 16.3 % (0-4.5); HEMATOCRIT 29.5 % (35.4-49); HEMOGLOBIN 9.9 GM/dL (11.7-16.9); LYMPH % 21.1 % (8-40); MCH 31.8 pg (25.7-33.7); MCHC 33.5 g/dl (32.0-35.9); MEAN PLT VOLUME 7.8 fl (7.5-11.1); MONO % 6.9 % (3.8-10.2); NEUT % 54.2 % (42.8-82.8); PLATELET COUNT 220 10^3/uL (134-434); RBC 3.11 M/mm3 (4.00-5.60); RDW 15.3 % (11.9-15.9); WHITE BLOOD COUNT 8.6 K/mm3 (4.0-10.0)
[2024-07-13] MEDS ORDERED: MIDODRINE HCL 5 MG TABLET ONE (13:59)
[2024-07-13] MEDS ORDERED: ATORVASTATIN CA 20 MG TABLET (FP) ONE (22:08)
[2024-07-13] MEDS: ATORVASTATIN CA 20 MG TABLET (FP) PO SCH (22:23)
[2024-07-14] MEDS: ENOXAPARIN NA (PORCINE) 40 MG/0.4 ML DISP.SYRIN SQ SCH (09:41)
[2024-07-14] MEDS: ACETAMINOPHEN 325 MG TABLET (FP) PO PRN (23:35)
[2024-07-15 10:18] LABS: BASO % 2.5 % (0-2.0); EOS % 16.1 % (0-4.5); HEMATOCRIT 32.2 % (35.4-49); HEMOGLOBIN 11.1 GM/dL (11.7-16.9); LYMPH % 15.4 % (8-40); MCH 31.3 pg (25.7-33.7); MCHC 34.5 g/dl (32.0-35.9); MEAN CELL VOLUME 90.7 fl (80-96); MEAN PLT VOLUME 7.1 fl (7.5-11.1); MONO % 5.5 % (3.8-10.2); NEUT % 60.5 % (42.8-82.8); PLATELET COUNT 245 10^3/uL (134-434); RBC 3.55 M/mm3 (4.00-5.60); RDW 14.8 % (11.9-15.9); WHITE BLOOD COUNT 10.9 K/mm3 (4.0-10.0)
[2024-07-15 10:34] LABS: POTASSIUM 3.9 mmol/L (3.5-5.1)
[2024-07-15 10:36] LABS: ALBUMIN 1.6 g/dl (3.4-5.0); BLOOD UREA NITROGEN 14.1 mg/dL (7-18); CALCIUM 7.7 mg/dL (8.5-10.1)
[2024-07-15 10:41] LABS: BILIRUBIN,TOTAL 0.8 mg/dL (0.2-1); TOT PROT 6.3 g/dl (6.4-8.2)
[2024-07-15] MEDS: ESCITALOPRAM OXALATE 10 MG TABLET PO SCH (13:41)
[2024-07-15] MEDS: MELATONIN 5 MG TABLETS PO PRN (21:46)
[2024-07-16] MEDS: MULTIVITAMINS (DAILY MVI) TABLET (FP) PO SCH (15:27)
[2024-07-16] MEDS: ASCORBIC ACID 250 MG TABLET (FP) PO SCH (15:28)
[2024-07-17 11:20] VITALS: RESP 18
[2024-07-18 01:56] VITALS: BP 123/80; PULSE 73; TEMP 97.9
== END 2024-07-18 01:30 | DRG 552 ==
LOC: JER 19:52 → JERBED 07-13 03:55 → J6S 07-13 23:45 → OBSVTOIN 07-14 12:24
PROVIDERS: ADMIT Internal Medicine; ATTEND Internal Medicine
DX: S22.081A Stable burst fracture of T11-T12 vertebra, initial encounter for closed fracture (principal); I10 Essential (primary) hypertension; E78.5 Hyperlipidemia, unspecified; I45.6 Pre-excitation syndrome; Z21 Asymptomatic human immunodeficiency virus [HIV] infection status; F32.9 Major depressive disorder, single episode, unspecified; R19.7 Diarrhea, unspecified; E11.9 Type 2 diabetes mellitus without complications; S31.801A Laceration without foreign body of unspecified buttock, initial encounter; W19.XXXA Unspecified fall, initial encounter; Y93.9 Activity, unspecified; Y92.89 Other specified places as the place of occurrence of the external cause; Y99.9 Unspecified external cause status
CPT/HCPCS: 36415; 70450-TC; 71045-TC-FY; 72125-TC; 72128-TC; 72131-TC; 72146-TC; 72170-TC-FY; 73502-TC-LT-FY; 80048; 80053; 82962; 83605; 83735; 84100; 84484; 85025; 85610; 85730; 86850; 86900; 86901; 87045; 87046; 87186; 87324; 87449; 93005; 93010; 93970-TC; 97162-GP; 99285-25; G0378